=== PATIENT | male | born 1935 | race Caucasian/White ===

== ENCOUNTER 2016-05-14 16:58 | Outpatient (CLI) ==
[2013-02-13 11:19] VITALS: BMI 27.3
[2016-05-14 17:28] LABS: ALBUMIN 3.5 g/dL (3.4-5.0); ANION GAP 13.9; BUN/CREATININE RATIO 29.62; CALCIUM 9.3 mg/dL (8.2-10.2); CREATININE 0.81 mg/dL (0.60-1.10); PHOSPHORUS 2.2 mg/dL (2.3-3.7); POTASSIUM 3.9 mmol/L (3.5-5.1)
== END 2016-05-14 16:59 | disposition home or self-care (01) ==
LOC: LAB 16:58
PROVIDERS: ATTEND General Practice
DX: E11.49 Type 2 diabetes mellitus with other diabetic neurological complication (principal)
CPT/HCPCS: 36415; 80069; 83036

== ENCOUNTER 2016-05-17 09:28 | Outpatient (CLI) ==
[2013-02-13 11:19] VITALS: BMI 27.3
--- NOTE | 2016-05-17 10:41 | CT ---
EXAM: CT of the abdomen pelvis without contrast History: Weight loss, prostate cancer. Comparison: Chest CT 05/17/2016, abdominal MRI 10/28/2015 Technique: Multiplanar CT images through the abdomen and pelvis were obtained without the administr ation of contrast. Findings: Lung bases are free of consolidation. Compression deformity of L3 with kyphoplasty mater ial seen in place. Osteopenia. Small sclerotic lesions within the bilateral iliac bones have the a ppearance of bone islands. The no discrete gallstones identified by CT. No peripancreatic inflammation. There is some atrophy of the pancreas. Atherosclerotic vascular calcifications. Calcified granulomas within the spleen. Nodular surface contour of the liver. No focal liver lesions. Adrenal glands are unremarkable. Right renal cysts again noted with a proteinaceous cyst again seen in the superior pole. 2 mm nonob structing left renal calculus. No bowel obstruction. No free air. No ascites. No pathologically enlarged lymph nodes. Bladder is not distended. Surgical clips seen within the pelvis. Fat-contai anton bilateral inguinal hernias. Colonic diverticulosis. Impression: 1. No acute intra-abdominal or pelvic process. 2. Nodular surface contour of the liver can be seen with cirrhosis. 3. Nonobstructing left nephrolithiasis. 4. Right renal cysts again noted. 5. Colonic diverticulosis. 6. Fat-containing bilateral inguinal hernias.
--- NOTE | 2016-05-17 10:44 | CT ---
EXAM: CT of the chest without contrast History: Weight loss, history of prostate cancer. Comparison: Chest radiograph 03/24/2015, CT abdomen pelvis 05/17/2016 Technique: Multiplanar CT images through the thorax were obtained without the administration of IV contrast Findings: Heart size is normal. No pericardial effusion. Coronary calcifications. Great vessels are unremarkable. No pathologically enlarged thoracic lymph nodes. No consolidation. No pleural fluid and no pneumothorax. No lung masses or lung nodules. For details in the upper abdomen, please see dedicated CT abdomen pelvis done on the same day. Oste openia. Impression: No acute intrathoracic process and no suspicious lung masses or lung nodules. Coronary artery disease.
== END 2016-05-17 09:29 | disposition home or self-care (01) ==
LOC: RAD 09:28
PROVIDERS: ATTEND General Practice
DX: R63.4 Abnormal weight loss (principal); Z87.891 Personal history of nicotine dependence; Z85.46 Personal history of malignant neoplasm of prostate

== ENCOUNTER 2016-06-28 08:02 | Outpatient (CLI) ==
[2013-02-13 11:19] VITALS: BMI 27.3
[2016-06-28 08:26] LABS: BASOPHILS % (AUTO) 0.7 % (0.0-3.0); BILIRUBIN,URINE Negative (NEGATIVE); EOSINOPHILS # (AUTO) 0.2 K/ul (0.0-0.7); HEMATOCRIT 38.4 % (42.0-52.0); HEMOGLOBIN 12.7 g/dl (14.0-18.0); IMMATURE GRANULOCYTE % (AUTO) 0.2 % (0.0-5.0); KETONES,URINE Trace (NEGATIVE); LEUKOCYTE ESTERASE ,URINE Negative (NEGATIVE); LYMPHOCYTES # (AUTO) 1.1 K/uL (0.60-3.4); LYMPHOCYTES % (AUTO) 25.7 (10.0-50.0); MEAN CORPUSCULAR HEMOGLOBIN 30.6 pg (27.0-31.0); MEAN CORPUSCULAR HGB CONC 33.1 (31.8-35.4); MEAN CORPUSCULAR VOLUME 92.5 fl (80.0-94.0); MONOCYTES # (AUTO) 0.5 K/uL (0.4-2.0); MONOCYTES % (AUTO) 11.8 (0-10); NEUTROPHILS # (AUTO) 2.4 K/ul (2.0-6.9); NEUTROPHILS % (AUTO) 56.6; NITRITE,URINE Negative (NEGATIVE); PH,URINE 5.5 (5-9); PLATELET COUNT 176 10^3/uL (140-440); PROTEIN,URINE Negative (NEGATIVE); RED BLOOD COUNT 4.15 10^6/ul (4.70-6.10); URINE, BLOOD Negative (NEGATIVE); WHITE BLOOD COUNT 4.16 K/ul (4.2-10.2)
[2016-06-28 08:31] LABS: ADD URINE MICROSCOPIC NO
[2016-06-28 08:43] LABS: ALBUMIN 3.6 g/dL (3.4-5.0); ALBUMIN/GLOBULIN RATIO 1.03; ANION GAP 11.6; BILIRUBIN,TOTAL 0.88 mg/dL (0.00-1.20); BUN/CREATININE RATIO 22.5; CALCIUM 9.1 mg/dL (8.2-10.2); CHOL/HDL RATIO 3.9 (4.5-6.4); CREATININE 0.8 mg/dL (0.60-1.10); POTASSIUM 3.6 mmol/L (3.5-5.1); TOTAL PROTEIN 7.1 g/dL (5.8-8.1)
== END 2016-06-28 08:03 | disposition home or self-care (01) ==
LOC: LAB 08:02
PROVIDERS: ATTEND General Practice
DX: E53.8 Deficiency of other specified B group vitamins (principal); E11.49 Type 2 diabetes mellitus with other diabetic neurological complication; N28.89 Other specified disorders of kidney and ureter; Z79.899 Other long term (current) drug therapy
CPT/HCPCS: 36415; 80053; 80061; 81001; 83036; 85025

== ENCOUNTER 2016-07-13 07:27 | Day surgery (SDC) ==
[2013-02-13 11:19] VITALS: BMI 27.3
[2016-07-13] MEDS ORDERED: LIDOCAINE 1% 20 ML MDV ID ONE (07:55)
[2016-07-13] MEDS ORDERED: LIDOCAINE 2% 20 ML MDV ONE (07:55)
[2016-07-13] MEDS ORDERED: VERSED ONE (09:35)
[2016-07-13] MEDS ORDERED: DIPRIVAN 20 ML VIAL IVP ONE (09:35)
[2016-07-13 10:52] VITALS: BP 137/69; TEMP 97.5
--- NOTE | 2016-07-14 10:08 | OP ---
INDICATIONS FOR PROCEDURE: 80 year old gentleman past history of adenomatous polyps on colonoscopy three years ago presents for colonoscopy. He has also had a change in his bowel habits with increased constipation which is responding to Citrucel he states. MEDICATIONS: SEE ANESTHESIA NOTES. PROCEDURE: COLONOSCOPY. REPORT: The risks, benefits, alternatives and limitations were discussed in detail with the patient. Informed consent was obtained. After adequate sedation was achieved, a digital rectal exam revealed good tone, no masses. The colonoscope was introduced into the rectum and advanced under direct visual guidance. He had a little bit of a torturous left colon. The scope was advanced to the cecum which was identified by the appendiceal orifice and IC valve. I then slowly withdrew the scope in the circumferential manner and examined the mucosa quite carefully. I looked on the proximal and distal side of the folds and flexures as best as possible. I was able to retroflex the scope in the right colon and the left colon to increase visualization. There was a moderate amount of large and small mouth diverticula scattered throughout the sigmoid colon and descending colon. No other abnormalities were noted including on retroflex view of the anal canal. The prep was good. Withdraw time is 6 minutes and 57 seconds. The patient tolerated the procedure well with stable vital signs and pulse oximetry throughout. IMPRESSION: 1. Diverticulosis RECOMMENDATIONS: 1. High fiber diet. I suggested that he continue with daily fiber supplements such as Citrucel 2. Office visit as needed 3. Recommend future surveillance colonoscopy examinations on an as needed only basis CC: Dr[facility] Reardon. [facility]
== END 2016-07-13 11:00 | disposition home or self-care (01) ==
LOC: SURG 07:27
PROVIDERS: ATTEND Internal Medicine Gastroenterology
DX: Z86.010 Personal history of colon polyps (principal); K57.30 Diverticulosis of large intestine without perforation or abscess without bleeding; K59.00 Constipation, unspecified; E11.9 Type 2 diabetes mellitus without complications
CPT/HCPCS: 82962

== ENCOUNTER 2017-02-03 13:24 | Outpatient (CLI) ==
[2013-02-13 11:19] VITALS: BMI 27.3
[2017-02-03 13:55] LABS: BASOPHILS % (AUTO) 0.6 % (0.0-3.0); EOSINOPHILS # (AUTO) 0.2 K/ul (0.0-0.7); EOSINOPHILS % (AUTO) 4.3 % (0.0-7.0); HEMATOCRIT 36.4 % (42.0-52.0); HEMOGLOBIN 12.1 g/dl (14.0-18.0); IMMATURE GRANULOCYTE % (AUTO) 0.2 % (0.0-5.0); LYMPHOCYTES # (AUTO) 1.2 K/uL (0.60-3.4); MEAN CORPUSCULAR HGB CONC 33.2 (31.8-35.4); MEAN CORPUSCULAR VOLUME 93.3 fl (80.0-94.0); MONOCYTES # (AUTO) 0.4 K/uL (0.4-2.0); MONOCYTES % (AUTO) 8.3 (0-10); NEUTROPHILS # (AUTO) 3.2 K/ul (2.0-6.9); NEUTROPHILS % (AUTO) 63.6; PLATELET COUNT 173 10^3/uL (140-440); WHITE BLOOD COUNT 5.09 K/ul (4.2-10.2)
[2017-02-03 14:10] LABS: ALBUMIN 3.4 g/dL (3.4-5.0); ANION GAP 9.8; BILIRUBIN,TOTAL 1.06 mg/dL (0.00-1.20); BUN/CREATININE RATIO 28.76; CALCIUM 9.6 mg/dL (8.2-10.2); CHOL/HDL RATIO 3.9 (4.5-6.4); CREATININE 0.73 mg/dL (0.60-1.10); POTASSIUM 3.8 mmol/L (3.5-5.1); TOTAL PROTEIN 6.8 g/dL (5.8-8.1)
[2017-02-03 14:12] LABS: BILIRUBIN,URINE Negative (NEGATIVE); KETONES,URINE Negative (NEGATIVE); LEUKOCYTE ESTERASE ,URINE Negative (NEGATIVE); NITRITE,URINE Negative (NEGATIVE); PROTEIN,URINE Negative (NEGATIVE); URINE, BLOOD Negative (NEGATIVE)
[2017-02-03 14:18] LABS: ADD URINE MICROSCOPIC NO
== END 2017-02-03 13:25 | disposition home or self-care (01) ==
LOC: LAB 13:24
PROVIDERS: ATTEND General Practice
DX: E11.49 Type 2 diabetes mellitus with other diabetic neurological complication (principal); E53.8 Deficiency of other specified B group vitamins; N28.89 Other specified disorders of kidney and ureter; Z79.899 Other long term (current) drug therapy
CPT/HCPCS: 36415; 80053; 80061; 81001; 83036; 85025

== ENCOUNTER 2017-06-09 13:20 | Outpatient (CLI) ==
[2013-02-13 11:19] VITALS: BMI 27.3
== END 2017-06-09 13:21 | disposition home or self-care (01) ==
LOC: LAB 13:20
PROVIDERS: ATTEND General Practice
DX: E11.49 Type 2 diabetes mellitus with other diabetic neurological complication (principal); Z79.899 Other long term (current) drug therapy; Z12.5 Encounter for screening for malignant neoplasm of prostate
CPT/HCPCS: 36415; 80053; 80061; 81001; 85025; 87086

== ENCOUNTER 2017-08-08 11:03 | Outpatient (CLI) ==
[2013-02-13 11:19] VITALS: BMI 27.3
--- NOTE | 2017-08-08 12:36 | CT ---
EXAM: CT chest without contrast HISTORY: Productive cough COMPARISON: CT chest 05/17/2016 and multiple prior chest x-rays TECHNIQUE: Serial axial images of the chest were obtained from the lung apices to the upper abdomen without contrast. These were viewed in multiple planes. FINDINGS: The thyroid is normal. The visualized vessels are unremarkable without aneurysm or stenos is. Pulmonary arteries are unremarkable. The heart is normal in size without pericardial effusion. There are nonpathologically enlarged mediastinal lymph nodes. There is no pneumothorax or pleural effusion. There is mild central lobular ground-glass nodularity and airway thickening, most pronounced in the right lower lobe and the right upper lobe. There is no acute consolidation. The central airways are patent. Limited views of the upper abdomen demonstrate a mildly nodular appearance of the liver. There are l ow attenuation lesions in the right kidney. The osseous structures are demonstrate degenerative dise ase. IMPRESSION: 1. Mild central lobular ground-glass nodularity and small airway thickening in the right upper lobe and the right lower lobe suggestive of small airways infection. There is no acute consolidation. 2. Nonpathologically enlarged mediastinal lymph nodes are likely reactive. 3. The liver is mildly nodular in appearance with low attenuation lesions of the kidneys. These kid tasha lesions may represent cysts seen on MRI 10/28/2015.
== END 2017-08-08 11:04 | disposition home or self-care (01) ==
LOC: RAD 11:03
PROVIDERS: ATTEND General Practice
DX: R06.89 Other abnormalities of breathing (principal); R09.89 Other specified symptoms and signs involving the circulatory and respiratory systems; R06.2 Wheezing; R06.02 Shortness of breath; R05 Cough
CPT/HCPCS: 36415; 80053; 83880; 85007; 85025

== ENCOUNTER 2017-09-09 09:44 | Outpatient (CLI) ==
[2013-02-13 11:19] VITALS: BMI 27.3
== END 2017-09-09 09:45 | disposition home or self-care (01) ==
LOC: FCC-LAB 09:44
PROVIDERS: ATTEND General Practice
DX: E11.49 Type 2 diabetes mellitus with other diabetic neurological complication (principal); E53.8 Deficiency of other specified B group vitamins; C61 Malignant neoplasm of prostate; N39.3 Stress incontinence (female) (male); Z79.899 Other long term (current) drug therapy
CPT/HCPCS: 36415; 80053; 80061; 81001; 83036; 85025

== ENCOUNTER 2017-11-15 10:54 | Outpatient (CLI) ==
[2013-02-13 11:19] VITALS: BMI 27.3
== END 2017-11-15 10:55 | disposition home or self-care (01) ==
LOC: FCC-LAB 10:54
PROVIDERS: ATTEND General Practice
DX: E11.49 Type 2 diabetes mellitus with other diabetic neurological complication (principal); N28.89 Other specified disorders of kidney and ureter; E53.8 Deficiency of other specified B group vitamins; C61 Malignant neoplasm of prostate; G57.93 Unspecified mononeuropathy of bilateral lower limbs; H40.9 Unspecified glaucoma; Z79.899 Other long term (current) drug therapy
CPT/HCPCS: 36415; 83036

== ENCOUNTER 2018-03-13 09:34 | Outpatient (CLI) ==
[2013-02-13 11:19] VITALS: BMI 27.3
== END 2018-03-13 09:35 | disposition home or self-care (01) ==
LOC: RHC-LAB 09:34
PROVIDERS: ATTEND General Practice
DX: E11.49 Type 2 diabetes mellitus with other diabetic neurological complication (principal); E78.5 Hyperlipidemia, unspecified; Z79.899 Other long term (current) drug therapy
CPT/HCPCS: 36415; 80053; 80061; 81001; 83036; 85025

== ENCOUNTER 2018-07-10 08:01 | Outpatient (CLI) | payer OTHER ==
[2013-02-13 11:19] VITALS: BMI 27.3
== END 2018-07-10 08:02 | disposition home or self-care (01) ==
LOC: RHC-LAB 08:01
PROVIDERS: ATTEND General Practice
DX: E11.49 Type 2 diabetes mellitus with other diabetic neurological complication (principal); Z79.899 Other long term (current) drug therapy
CPT/HCPCS: 36415; 80053; 80061; 81001; 83036; 85025; 87086

== ENCOUNTER 2018-10-03 11:21 | Outpatient (CLI) | payer OTHER ==
[2013-02-13 11:19] VITALS: BMI 27.3
== END 2018-10-03 11:22 | disposition home or self-care (01) ==
LOC: RHC-LAB 11:21
PROVIDERS: ATTEND General Practice
DX: E53.8 Deficiency of other specified B group vitamins (principal); E11.49 Type 2 diabetes mellitus with other diabetic neurological complication; N39.3 Stress incontinence (female) (male)
CPT/HCPCS: 36415; 80053; 80061; 81001; 83036; 85025

== ENCOUNTER 2019-01-09 08:06 | Outpatient (CLI) ==
[2013-02-13 11:19] VITALS: BMI 27.3
== END 2019-01-09 08:07 | disposition home or self-care (01) ==
LOC: LAB 08:06
PROVIDERS: ATTEND General Practice
DX: E11.49 Type 2 diabetes mellitus with other diabetic neurological complication (principal); E78.5 Hyperlipidemia, unspecified; L98.9 Disorder of the skin and subcutaneous tissue, unspecified; R19.7 Diarrhea, unspecified; Z79.899 Other long term (current) drug therapy
CPT/HCPCS: 36415; 80053; 80061; 81001; 83036; 85025

== ENCOUNTER 2021-12-28 12:17 | Inpatient (IN) ==
[2021-12-28] MEDS ORDERED: ATROPINE SULFATE PFS IVP PRN (14:20)
[2021-12-28] MEDS ORDERED: NITROSTAT SL PRN (14:20)
[2021-12-28] MEDS ORDERED: VANCOMYCIN 1 GRAM/200 ML PREMIX 1 GM/200 ML BAG IV ONE (14:34)
[2021-12-28] MEDS ORDERED: DECADRON IM ONE (14:34)
[2021-12-28 14:54] LABS: HEMATOCRIT 36.4 % (42.0-52.0); MEAN CORPUSCULAR HEMOGLOBIN 29.8 pg (27.0-31.0); MEAN CORPUSCULAR VOLUME 90.3 fl (80.0-94.0); PLATELET COUNT 193 10^3/uL (140-440); RDW COEFFICIENT OF VARIATION 13.2 % (11.6-14.8); RED BLOOD COUNT 4.03 10^6/ul (4.70-6.10)
[2021-12-28 14:59] LABS: BILIRUBIN,URINE Negative (NEGATIVE); CLARITY,URINE Clear (CLEAR); COLOR,URINE Yellow (YELLOW); GLUCOSE, URINE (UA) 2+ (NEGATIVE); KETONES,URINE Negative (NEGATIVE); LEUKOCYTE ESTERASE ,URINE Negative (NEGATIVE); NITRITE,URINE Negative (NEGATIVE); PH,URINE 5.5 (5-9); PROTEIN,URINE 1+ (NEGATIVE); URINE, BLOOD Trace-lysed (NEGATIVE); UROBILINOGEN,URINE 0.2 (0.2)
[2021-12-28 15:02] LABS: SQUAMOUS EPITHELIAL CELL,UR NOT PRESENT (0-5)
[2021-12-28 15:03] LABS: AMORPHOUS SEDIMENT,UR 1+ (NOT PRESENT); RENAL EPITHELIAL CELLS,URINE 0-2 (NOT PRESENT); URINE WBC, MICROSCOPIC 0-2 (0-2)
[2021-12-28 15:04] LABS: BACTERIA,URINE 1+ (NOT PRESENT); HYALINE CASTS, URINE 0-2 (NOT PRESENT)
[2021-12-28 15:07] LABS: ALANINE AMINOTRANSFERASE 24.3 U/L (0-50); ALBUMIN 3.28 g/dL (3.5-5.0); ALKALINE PHOSPHATASE 76.1 U/L (56-119); ASPARTATE AMINO TRANSFERASE 38.6 U/L (17-59); BILIRUBIN,TOTAL 0.65 mg/dL (0.2-1.3); BLOOD UREA NITROGEN 41.4 mg/dL (9-20); CALCIUM 8.85 mg/dL (8.4-10.2); CARBON DIOXIDE 21.4 mmol/L (22-30.0); CHLORIDE 102.6 mmol/L (98-107); CREATININE 1.12 mg/dL (0.60-1.10); GLUCOSE 299.6 mg/dL (74-106); POTASSIUM 3.66 mmol/L (3.5-5.1); SODIUM 133.9 mmol/L (134.5-145); TOTAL PROTEIN 6.88 g/dL (6.3-8.2)
[2021-12-28] MEDS ORDERED: FLONASE NAS PRN (15:12)
[2021-12-28] MEDS: DOXY-100 100 MG in SODIUM CHLORIDE 100ML 100 ML IV SCH ×2 (15:15→20:17)
[2021-12-28 15:16] LABS: ANISOCYTOSIS NOT PRESENT (NOT PRESENT)
[2021-12-28 15:17] LABS: WHITE BLOOD COUNT 22.25 K/ul (4.2-10.2)
[2021-12-28 15:48] VITALS: BMI 21.8
--- NOTE | 2021-12-28 16:07 | DI ---
EXAM: Frontal view of the chest. HISTORY: Exertional shortness of breath. COMPARISON: Chest radiograph 03/24/2015. CT chest 04/20/2019. FINDINGS: Mild calcific atherosclerosis of the aorta. Normal heart size. No acute consolidation. No visible effusion or pneumothorax. No acute osseous abnormality. IMPRESSION: 1. No acute process demonstrated. 2. Mild calcific atherosclerosis.
--- NOTE | 2021-12-28 16:39 | RS.OTINEVL ---
Subjective - Patient information Date of Evaluation: 12/28/21 Date of Arrival on Unit: 12/28/21 Admitted From:: Direct Admit Diagnosis: Abscessed Perianal, scrotum swelling PRECAUTIONS: Difficulty standing and functional mobility due to pain. 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 Pt drives. Current Level of Function: Independent Current Equipment Used at Home: NONE Pain Assessment - Pain Pain Score: 5 Pain Location Body Site: Perianal area Pain Aggravating Factors: ADL's, Changing Position, Standing, Sitting, Walking, Stair Climbing Pain Alleviating Factors: Medication, Lying Supine Interventions - Objective Patient Orientation: Person, Place, Situation Current Interventions: IV's Observation: Pt holding a pillow over his middle section. Pt able to sit EOB independently. Pt stood slowly and bent over due to increased pain. Pt able to walk backwards to EOB. Pt independent with getting back in the bed. Interventions - ROM Right Upper Extremity AROM: WFL's Left Upper Extremity AROM: WFL's - Strength Right Upper Extremity Strength: Normal Left Upper Extremity Strength: Normal - Sensation Right Upper Extremity Sensation: Intact/Normal Left Upper Extremity Sensation: Intact/Normal Balance - Sitting Balance Static Sitting Balance: Fair Dynamic Sitting Balance: Fair - Standing Balance Static Standing Balance: Fair Dynamic Standing Balance: Fair ADL Skills - Self Feeding Self Feeding: Independent - Grooming Grooming: Independent - Bathing Bathing UE: Set Up Only Bathing LE: Supervision Bathing Set-up: Shower - Dressing Dressing UE: Independent Dressing LE: Independent - Toilet Management Toilet Hygiene: Independent Toilet Clothing Management: Independent - Comments Comments:: Pt refused therapy at this time. Functional Mobility - Bed Mobility Rolling R/L: Independent Scooting: Independent Supine to Sit: Independent Sit to Supine: Independent - Transfers Sit to Stand: CGA Stand to Sit: Independent Stand Pivot Transfers: CGA - Ambulation Weight Bearing Status: FWB Assistive Device Used: No Assistive Device TRINA INDEX SCORE: . Additional Treatment Performed - Time with patient Length of Evaluation: 20 Total treatment time: 20 Activities Do you enjoy playing games?: Yes Would you be interested in leaving your room for activities?: Yes Would you enjoy group activities?: Yes Do you have difficulty with your vision?: No What types of things do you enjoy doing? Any Hobbies?: golf Patient Interests:: Watching Television Patient Education Patient Education: Education of diagnosis Teaching Recipient: Patient Teaching Methods: Teach Back Method Used, Discussion Assessment Problem List:: Decreased safety/Risk of falls, Weakness Rehab Potential: Good Further Therapy Indicated?: No Evaluation Complexity: HISTORY: Low, EXAM OF BODY SYSTEMS: Low, CLINICAL DECISION MAKING: Low Patient's Goal(s): Pt to get to feeling better and get home where he can go golfing. Short Term Goals - Goals GOAL 1: No goals at this time. Braddisher Goals GOAL 1: No goals at this time. Plan Plan of Care: Therapeutic EX, Therapeutic Activity, Self-Care/Home Management Frequency of Treatment: Refused OT at this time. Duration of Treatment: N/A Anticipated Discharge Destination: Home Treatment Diagnosis (ICD 10 Codes): weakness M62.81 Has the Physician been added for Co-signature?: Yes
[2021-12-28] MEDS: GLUCOPHAGE PO SCH (17:38)
[2021-12-28] MEDS: NEURONTIN PO SCH (20:17)
[2021-12-28] MEDS: PRAVACHOL PO SCH (20:17)
[2021-12-28] MEDS: XALATAN EACHEYE SCH (20:58)
[2021-12-28] MEDS: HUMULIN R SUBCUT PRN (21:54)
[2021-12-28] MEDS: MAXIPIME 2 GM in SODIUM CHLORIDE 100ML 100 ML IV SCH (22:29)
[2021-12-29 05:04] LABS: HEMATOCRIT 33.8 % (42.0-52.0); MEAN CORPUSCULAR HEMOGLOBIN 29.8 pg (27.0-31.0); MEAN CORPUSCULAR HGB CONC 32.5 (31.8-35.4); MEAN CORPUSCULAR VOLUME 91.6 fl (80.0-94.0); PLATELET COUNT 185 10^3/uL (140-440); RDW COEFFICIENT OF VARIATION 13.5 % (11.6-14.8); RED BLOOD COUNT 3.69 10^6/ul (4.70-6.10)
[2021-12-29 05:06] LABS: ANISOCYTOSIS NOT PRESENT (NOT PRESENT)
[2021-12-29 05:15] LABS: ALANINE AMINOTRANSFERASE 21.5 U/L (0-50); ALBUMIN 2.75 g/dL (3.5-5.0); ALKALINE PHOSPHATASE 70.2 U/L (56-119); ASPARTATE AMINO TRANSFERASE 31.4 U/L (17-59); BILIRUBIN,TOTAL 0.53 mg/dL (0.2-1.3); BLOOD UREA NITROGEN 39.6 mg/dL (9-20); CALCIUM 8.4 mg/dL (8.4-10.2); CHLORIDE 103.6 mmol/L (98-107); CREATININE 1.03 mg/dL (0.60-1.10); POTASSIUM 3.75 mmol/L (3.5-5.1); TOTAL PROTEIN 5.95 g/dL (6.3-8.2)
[2021-12-29] MEDS: HUMULIN R SUBCUT PRN ×4 (05:40→20:33)
[2021-12-29] MEDS ORDERED: SODIUM CHLORIDE 1,000 ML IV SCH (08:30)
[2021-12-29] MEDS: MAXIPIME 2 GM in SODIUM CHLORIDE 100ML 100 ML IV SCH ×2 (08:53→20:30)
[2021-12-29] MEDS: TORADOL IVP PRN ×2 (08:54→20:31)
[2021-12-29] MEDS: JANUVIA PO SCH (08:54)
[2021-12-29] MEDS: GLUCOPHAGE PO SCH ×2 (08:54→17:14)
--- NOTE | 2021-12-29 08:54 | PCM.PROG ---
Attending Provider: ATTENDING PROVIDER: Dr. VIPUL AJ This patient is seen with Orly Cordova, Nurse Practitioner. DATE OF SERVICE: 12/29/21 SUBJECTIVE: This 86 year old /WHITE M was hospitalized 12/28/21. No fever. Reports improvement in pain. Blood cultures and urine cultures has no preliminary results. REVIEW OF SYSTEMS: CONSTITUTIONAL: No night sweats. No fatigue, malaise, lethargy. No fever or chills. HEENT: Eyes: No visual changes. No eye pain. No eye discharge. ENT: No runny nose. No epistaxis. No sinus pain. No odynophagia. No congestion. RESPIRATORY: No cough, no congestion. No hemoptysis. No shortness of breath. CARDIOVASCULAR: No angina symptoms. No CHF symptoms. No atypical chest pain for CAD. No palpitations. No orthopnea.. GASTROINTESTINAL: No abdominal pain. No nausea or vomiting. No diarrhea or constipation. No hematemesis. No hematochezia. GENITOURINARY: No urgency. No frequency. No dysuria. No hematuria. No obstructive symptoms. No discharge. No pain. No significant abnormal bleeding. Scrotal swelling, redness and swelling perianal area. MUSCULOSKELETAL: No musculoskeletal pain; no joint swelling. NEUROLOGICAL: Awake, alert, oriented to time, place and person. No headache. No neck pain. No syncope. No seizures. No dizziness. PSYCHIATRIC: Not anxious. No depression. No suicidal thoughts. No homicidal thoughts. SKIN: No rash. No lesions. No wounds. ENDOCRINE: No unexplained weight loss. No weight gain. HEMATOLOGIC/LYMPHATIC: No anemia. No purpura. No petechiae. No prolonged or excessive bleeding. No palpable lymph nodes. PHYSICAL EXAMINATION: GENERAL: The patient is awake, alert and oriented,sitting in bed in no distress. VITAL SIGNS: Temperature 96.8 F, Pulse 67, Respiratory Rate 18, BP 113/63, Pulse Ox 97% HEENT: Head normocephalic, atraumatic. Eyes: Extraocular muscles are intact. Pupils are equal, round and reactive to light and accommodation. Ears: No lesions. Nose appeared normal. Throat: No exudate or erythema. NECK: Supple. No JVD, no carotid bruit. No lymphadenopathy or thyromegaly. LUNGS: Diminished breath sounds. Clear to auscultation. Percussion note normal. Chest symmetrical. HEART: S1, S2, no S3. No murmurs. No cyanosis or clubbing. No ascites. Pulse s: Dorsalis pedis and posterior tibial pulses +1 to +2 both sides. ABDOMEN: Soft. Non-tender. Bowel sounds active. No CVA tenderness. No mass felt. EXTREMITIES: No edema. Full range of motion of all extremities, equal. Redness and swelling of gluteal folds. No definite area of induration. Redness extending to scrotum. No drainage. Tenderness. NEUROLOGIC: No focal deficit. Cranial nerves II through XII are grossly intact. No headache. No double vision. SKIN: Not dry. Intact. Turgor-normal. LYMPHATIC: No palpable lymph nodes/no lymphedema. MUSCULOSKELETAL: Normal joints with no swelling. Muscle tone is normal. LAB REVIEW: 12/29/21 04:52 12/29/21 04:52 12/29/21 04:52: Sodium 136.0, Potassium 3.75, Chloride 103.6, Carbon Dioxide 26.0, Anion Gap 10.15, BUN 39.6 H, Creatinine 1.03, Estimated GFR (MDRD) 68.00, BUN/Creatinine Ratio 38.44, Glucose 277.0 H, Calcium 8.40, Total Bilirubin 0.53, AST 31.4, ALT 21.5, Alkaline Phosphatase 70.2, Total Protein 5.95 L, Albumin 2.75 L, Globulin 3.20, Albumin/Globulin Ratio 0.85 12/29/21 04:52: WBC 22.20 H, RBC 3.69 L, Hgb 11.0 L, Hct 33.8 L, MCV 91.6, MCH 29.8, MCHC 32.5, RDW Coeff of Pat 13.5, Plt Count 185, Neutrophils % (Manual) 89.0 H, Band Neutrophils % 2.0, Lymphocytes % (Manual) 5.0 L, Monocytes % (Manual) 4.0, Anisocytosis Not present 12/28/21 14:43: Sodium 133.9 L, Potassium 3.66, Chloride 102.6, Carbon Dioxide 21.4 L, Anion Gap 13.56, BUN 41.4 H, Creatinine 1.12 H, Estimated GFR (MDRD) 62.00, BUN/Creatinine Ratio 36.96, Glucose 299.6 H, Calcium 8.85, Total Bilirubin 0.65, AST 38.6, ALT 24.3, Alkaline Phosphatase 76.1, Total Protein 6 .88, Albumin 3.28 L, Globulin 3.60, Albumin/Globulin Ratio 0.91 12/28/21 14:43: WBC 22.25 H, RBC 4.03 L, Hgb 12.0 L, Hct 36.4 L, MCV 90.3, MCH 29.8, MCHC 33.0, RDW Coeff of Pat 13.2, Plt Count 193, Neutrophils % (Manual) 90.0 H, Band Neutrophils % 5.0, Lymphocytes % (Manual) 1.0 L, Monocytes % (Manual) 4.0, Anisocytosis Not present 12/28/21 14:31: Urine Color Yellow, Urine Clarity Clear, Urine pH 5.5, Ur Specific [place] 1.020, Urine Protein 1+ H, Urine Glucose (UA) 2+ H, Urine Ketones Negative, Urine Blood Trace-lysed, Urine Nitrite Negative, Urine Bilirubin Negative, Urine Urobilinogen 0.2, Ur Leukocyte Esterase Negative, Urine Microscopic RBC 2-5, Urine Microscopic WBC 0-2, Ur Squamous Epith Cells Not present, Ur Renal Epithelial Cell 0-2, Amorphous Sediment 1+, Urine Bacteria 1+, Hyaline Casts 0-2 12/28/21 12:24: SARS CoV-2 RNA Rapid KARINA Negative ASSESSMENT: Please see below. 1. Perianal abscess with surrounding cellulitis 2. Possible UTI 3. Diabetes Mellitus type II PLAN: 1. Continue IV antibiotics 2. Can use cool compress 3. Echo 4. Normal saline at 75cc times one bag Plan and coordination of the patient's care discussed in the presence of Branch Rental Manager and nurse. SCRIBED BY: Radha DICKEY scribed while in presence of service performed by Dr. Aj/Orly Cordova APRN on 12/29/21 ([id number])
[2021-12-29] MEDS ORDERED: COSOPT EACHEYE SCH (09:00)
--- NOTE | 2021-12-29 09:59 | HP ---
DATE OF SERVICE: 12/28/21 REASON FOR HOSPITALIZATION/HISTORY OF PRESENT ILLNESS: Started with ingrown hair in "crack of butt". Fever last night. Unable to sit. Scrotum swollen, no drainage. On Keflex. PAST MEDICAL HISTORY: Diabetes Mellitus type II Dyslipidemia Neuropathy Hypertension Urinary incontinence Cancer of prostate Noncompliant with medications, diet and followup History of hematuria Radiation cystitis Dr. Bañuelos Diabetes Mellitus type II Dyslipidemia Neuropathy Hypertension Left nephrolithiasis Cancer of prostate with radiation 25 years ago Back surgery B12 deficiency PAST SURGICAL HISTORY: Prostate cancer Back surgery REVIEW OF SYSTEMS: CONSTITUTIONAL: Fever, Fatigue. HEENT: No sinus drainage, no sore throat. RESPIRATORY: No cough, no congestion. CARDIOVASCULAR: No atypical chest pain for coronary artery disease. No angina, CHF symptoms, palpitations or shortness of breath. GASTROINTESTINAL: No melena or abdominal pain. No GERD. GENITOURINARY: No hematuria, no prostatism, no polyuria. Perianal swelling and tenderness. DYER ASSISTANT: No blackout, no dizziness, no headache, no double vision. MUSCULOSKELETAL: No osteoarthritis pain, no joint swelling. ENDOCRINE: No weight loss, no weight gain. SKIN: Not dry, no rash. PSYCHIATRIC: Not anxious, no depression, no suicidal thoughts, no homicidal thoughts. SOCIAL HISTORY: Marital Status:Single. Alcohol Usage: No. Tobacco Usage: No. FAMILY HISTORY: Father Mother Brother 3 Sister 2 alive and one . MEDICATIONS: Janumet XR 100/1000 Neurontin 100mg 1/2 QHS Flonase 2 sprays daily Pravastatin 20mg HS Keflex 500mg times 10 days Bactroban ALLERGIES: Jardiance PHYSICAL EXAMINATION: V/S: Pulse 87, blood pressure 134/64, Temperature 98, Oxygen saturation 95%. BMI 21.8, height 6'4", Weight 179.2. GENERAL APPEARANCE: Oriented times three. HEENT: Normal. NECK: No JVP, no bruits. RESPIRATORY: Lungs are clear. CARDIOVASCULAR: S1, S2, no S3, no murmur. No cyanosis, clubbing. No ascites. GI/ABDOMEN: No tenderness. Bowel sounds are active. EXTREMITIES: edema, pulses +1, equal. Perianal area swollen, red, tender. Scrotum red and swollen. DYER ASSISTANT: Deep tendon reflexes, sensory, motor and gait all normal. RECTAL: Prostate 5/2 (<0.1) Colonoscopy 2018 Dr. Davidson ASSESSMENT: 1. Cellulitis of perianal area and scrotal area. 2. Scrotal swelling 3. Fever 4. Noncompliant with medications, diet and followup 5. History of hematuria 6. 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 Bañuelos 7. Diabetes Mellitus type II 8. Dyslipidemia 9. Neuropathy 10.Hypertension 11.Left nephrolithiasis 12.Cancer of prostate with radiation 25 years ago 13.Back surgery 14.B12 deficiency PLAN: 1. Tested in drive thru 2. Routine telemetry orders 3. No cardiac markers 4. CBC and CMP now and daily 5. Blood cultures times two 6. Cefepime IV- Pharmacy to dose 7. Doxycycline 100mg IV Q 12 hours 8. Regular diet 9. Continue home medications 10.Toradol 30mg IV Q 8 hours PRN 11.Sitz bath TID PRN 12.0.5cc Decadron IM 13.Vancomycin 1gram IV times one now. TIME SPENT: More than 70 minutes. MTDD
[2021-12-29] MEDS: DOXY-100 100 MG in SODIUM CHLORIDE 100ML 100 ML IV SCH ×2 (10:34→21:03)
[2021-12-29] MEDS: TYLENOL PO PRN (13:24)
--- NOTE | 2021-12-29 13:34 | PN ---
DATE OF SERVICE: 12/28/21 SUBJECTIVE: The patient was seen and examined in the hospital after he was hospitalized through the office. Cellulitis in the scrotum and the left side of perianal area. The patient was seen and examined three days ago and given Keflex. The patient was advised SITZ bath and warm socks but not doing in fact he had increased his activity by play golf and sweating. According to him things looked better for a day or so and then involving his scrotum and other area. He was unable to sit down. Fever and chills yesterday. REVIEW OF SYSTEMS: CONSTITUTIONAL: No night sweats. No fatigue, malaise, lethargy. No fever or chills. HEENT: Eyes: No visual changes. No eye pain. No eye discharge. ENT: No runny nose. No epistaxis. No sinus pain. No sore throat. No odynophagia. No congestion. RESPIRATORY: No cough, no congestion. No hemoptysis. No shortness of breath. CARDIOVASCULAR: No angina symptoms. No CHF symptoms. No atypical chest pain for CAD. No palpitations. No PND. No orthopnea. GASTROINTESTINAL: No abdominal pain. No nausea or vomiting. No diarrhea or constipation. No hematemesis. No hematochezia. GENITOURINARY: No urgency. No frequency. No dysuria. No hematuria. No obstructive symptoms. No discharge. No pain. No significant abnormal bleeding. MUSCULOSKELETAL: No musculoskeletal pain; no joint swelling. NEUROLOGICAL: No headache. No neck pain. No syncope. No seizures. No dizziness. PSYCHIATRIC: Not anxious. No depression. No suicidal thoughts. No homicidal thoughts. SKIN: No rash. No lesions. No wounds. ENDOCRINE: No unexplained weight loss. No weight gain. HEMATOLOGIC/LYMPHATIC: No anemia. No purpura. No petechiae. No prolonged or excessive bleeding. No palpable lymph nodes. PHYSICAL EXAMINATION: HEENT: Head normocephalic, atraumatic. Eyes: Extraocular muscles are intact. Pupils are equal, round and reactive to light and accommodation. Ears: No lesions. Nose appeared normal. Throat: No exudate or erythema. NECK: Supple. No JVD, no carotid bruit. No lymphadenopathy or thyromegaly. LUNGS: Clear to auscultation. Percussion note normal. Chest symmetrical. HEART: S1, S2, no S3. No murmurs. No cyanosis or clubbing. No ascites. Pulses: Dorsalis pedis and posterior tibial pulses +1 to +2 bilaterally. ABDOMEN: Soft. Nontender. Bowel sounds active. No CVA tenderness. No mass felt. EXTREMITIES: No edema. Full range of motion of all extremities, equal. Cellulitis involving scrotum and left side of perianal area with no discharge. Tender to touch. NEUROLOGIC: No focal deficit. Cranial nerves II through XII are grossly intact. No headache. No double vision. SKIN: Not dry. Intact. Turgor - normal. LYMPHATIC: No palpable lymph nodes/no lymphedema. MUSCULOSKELETAL: Normal joints with no swelling. Muscle tone is normal. Son and the daughter were present in the room. ASSESSMENT: 1. Cellulitis of perianal area on the left and scrotal. PLAN: 1. IV antibiotics Cefepime and Vancomycin one dose 2. Doxycycline 100mg BID 3. The patient will have blood cultures 4. Discussed with patient about DNR. The patient wants DNR status. TIME SPENT: More than 30 minutes. Plan and coordination of the patient's care discussed in the presence of nurse. MG
[2021-12-29] MEDS: PROTONIX PO SCH (17:14)
[2021-12-29] MEDS: XALATAN EACHEYE SCH (17:16)
[2021-12-29] MEDS: COSOPT EACHEYE SCH (18:09)
[2021-12-29] MEDS ORDERED: GLYCERIN SUPPOSITORY RC PRN (18:26)
[2021-12-29] MEDS: NEURONTIN PO SCH (20:30)
[2021-12-29] MEDS: PRAVACHOL PO SCH (20:30)
[2021-12-30] MEDS: TYLENOL PO PRN (01:49)
[2021-12-30 05:08] LABS: HEMATOCRIT 31.8 % (42.0-52.0); HEMOGLOBIN 10.6 g/dl (14.0-18.0); MEAN CORPUSCULAR HEMOGLOBIN 30.1 pg (27.0-31.0); MEAN CORPUSCULAR HGB CONC 33.3 (31.8-35.4); MEAN CORPUSCULAR VOLUME 90.3 fl (80.0-94.0); PLATELET COUNT 179 10^3/uL (140-440); RDW COEFFICIENT OF VARIATION 13.7 % (11.6-14.8); RED BLOOD COUNT 3.52 10^6/ul (4.70-6.10); WHITE BLOOD COUNT 31.99 K/ul (4.2-10.2)
[2021-12-30 05:10] LABS: ANISOCYTOSIS NOT PRESENT (NOT PRESENT)
[2021-12-30 05:17] VITALS: BP 119/64; TEMP 98.2
[2021-12-30 05:21] LABS: ALANINE AMINOTRANSFERASE 28.7 U/L (0-50); ALBUMIN 2.44 g/dL (3.5-5.0); ALKALINE PHOSPHATASE 81.7 U/L (56-119); ASPARTATE AMINO TRANSFERASE 47.5 U/L (17-59); BILIRUBIN,TOTAL 0.67 mg/dL (0.2-1.3); BLOOD UREA NITROGEN 36.1 mg/dL (9-20); CALCIUM 8.44 mg/dL (8.4-10.2); CARBON DIOXIDE 23.1 mmol/L (22-30.0); CHLORIDE 105.9 mmol/L (98-107); CREATININE 1.02 mg/dL (0.60-1.10); GLUCOSE 231.5 mg/dL (74-106); POTASSIUM 3.71 mmol/L (3.5-5.1); TOTAL PROTEIN 5.59 g/dL (6.3-8.2)
[2021-12-30] MEDS: PROTONIX PO SCH (05:30)
[2021-12-30] MEDS: HUMULIN R SUBCUT PRN ×2 (05:51→12:01)
[2021-12-30] MEDS: JANUVIA PO SCH (09:36)
[2021-12-30] MEDS: GLUCOPHAGE PO SCH (09:37)
[2021-12-30] MEDS: COSOPT EACHEYE SCH (09:39)
[2021-12-30] MEDS: MAXIPIME 2 GM in SODIUM CHLORIDE 100ML 100 ML IV SCH (09:40)
[2021-12-30] MEDS: DOXY-100 100 MG in SODIUM CHLORIDE 100ML 100 ML IV SCH (10:40)
[2021-12-30] MEDS ORDERED: MILK OF MAGNESIA PO PRN (11:14)
--- NOTE | 2021-12-30 12:29 | DS ---
DATE OF SERVICE: 12/30/21 FINAL DIAGNOSIS: 1. Abscess cellulitis of perianal area 2. Diabetes Mellitus type II 3. C of the prostate with radiation [address] Bañuelos 4. History of dyslipidemia 5. History of diabetic neuropathy 6. Hypertension 7. Left nephrolithiasis 8. Status post surgery 9. B12 deficiency 10.History of radiation cystitis, Dr. Bañuelos 11.Urinary incontinence DISCHARGE INSTRUCTIONS: Transfer to [facility]. MEDICATIONS AT DISCHARGE: Dorzolamide/Timolol eye drops Flonase nasal spray two sprays daily Tylenol 6 hours for headache PRN Gabapentin 200mg PO bedtime Doxycycline 100mg IV Q 12 hours Cefepime 2 gram Q 12 hours Accu-check with insulin coverage protocol Toradol 30mg IV Q 8 hours for pain PRN Metformin 500mg twice a day Protonix 40mg twice a day Pravastatin 20mg PO daily Sitagliptin 100mg PO daily LABS: Hgb 10.6, hct 31, WBC 31,000 with shift to the left, creatinine 1, BUN 36, glucose 231, Liver profile normal, COVID negative. EKG sinus rhythm with no acute changes. Telemetry no cardiac arrhythmia, sinus rhythm. HOSPITAL COURSE: 86 year old white male who is up and about,plays golf three days a week seen in primary doctor office on 12/25/21 with cellulitis of perianal area. The patient was put on Keflex. The patient's condition deteriorated. Tuesday on followup he also had cellulitis of scrotal area and swelling of the scrotal. It was diffused redness of perianal area and scrotal area. The patient was put on IV Cefepime and IV Doxycycline. A dose of Vancomycin was given. The patient had history of having a fever night prior to hospitalization. The patient's blood cultures has been negative. The patient has been afebrile for past 2 days while he is in the hospital WBC count has gone up from 22,000 on admission to 31,000. Now he has developed blackened area with induration on lower part of the scrotum which is around 1cm size oblong. There is a small area of induration black skin over it near to the scrotal area. The patient very likely need incision and drainage and surgical consultation. Transfer service of [facility] was called. Dr. Torres was kind enough to accept the patient under his service. The patient is oriented to time, place and person and agreeable for the transfer. He understands the risk of surgery and anaesthesia. Condition at the time of discharge is stable. TIME SPENT: More than 60 minutes. MG
--- NOTE | 2021-12-30 12:30 | PN ---
ADMISSION: Level 5 REST OF THEM: Intermediate FINAL DAY: D as in discharge MTDD
--- NOTE | 2021-12-30 13:31 | PN ---
DATE OF SERVICE: 12/29/21 SUBJECTIVE: The patient was seen and examined today with the Nurse Practitioner. The patient's condition is stable. He has improved some. Redness is little less than yesterday, still pain. We will continue to given Toradol. Continue to give antibiotics Cefepime and Doxycycline. The patient is afebrile. Cardiovascular status is stable. The patient is getting coverage with Accu-checks couple of times a day. The patient is DNR. I had talked to him personally and he says that at his age he doesn't want anything to be prolonged. When the time comes he is ready to go. He wants DNR. Son and daughter both were present. TIME SPENT: More than 30 minutes. Plan and coordination of the patient's care discussed in the presence of nurse. MG
[2021-12-30] MEDS ORDERED: XALATAN EACHEYE SCH (21:00)
--- NOTE | 2021-12-31 10:28 | PN ---
DATE OF SERVICE: 12/30/21 DISCHARGE NOTE SUBJECTIVE: 86 year old white male hospitalized 12/28/21 with cellulitis of perianal area and scrotal area. The patient has localized abscess on the scrotal area and perianal area with blacken skin with induration. The patient is feeling somewhat better but still weak. Has some pain in the perianal area, Toradol is helping. WBC count has gone up to 31,000. REVIEW OF SYSTEMS: CONSTITUTIONAL: No night sweats. No fatigue, malaise, lethargy. No fever or chills. HEENT: Eyes: No visual changes. No eye pain. No eye discharge. ENT: No runny nose. No epistaxis. No sinus pain. No sore throat. No odynophagia. No congestion. RESPIRATORY: No cough, no congestion. No hemoptysis. No shortness of breath. CARDIOVASCULAR: No angina symptoms. No CHF symptoms. No atypical chest pain for CAD. No palpitations. No PND. No orthopnea. GASTROINTESTINAL: No abdominal pain. No nausea or vomiting. No diarrhea or constipation. No hematemesis. No hematochezia. Appetite is same as he started out with. He doesn't like the food in the hospital. GENITOURINARY: No urgency. No frequency. No dysuria. No hematuria. No obstructive symptoms. No discharge. No pain. No significant abnormal bleeding. MUSCULOSKELETAL: No musculoskeletal pain; no joint swelling. NEUROLOGICAL: No headache. No neck pain. No syncope. No seizures. No dizziness. PSYCHIATRIC: Not anxious. No depression. No suicidal thoughts. No homicidal thoughts. SKIN: No rash. No lesions. No wounds. ENDOCRINE: No unexplained weight loss. No weight gain. HEMATOLOGIC/LYMPHATIC: No anemia. No purpura. No petechiae. No prolonged or excessive bleeding. No palpable lymph nodes. PHYSICAL EXAMINATION: VITAL SIGNS: Temperature 98, pulse 82, respiratory rate 20, blood pressure 120/64 and pulse ox 94% HEENT: Head normocephalic, atraumatic. Eyes: Extraocular muscles are intact. Pupils are equal, round and reactive to light and accommodation. Ears: No lesions. Nose appeared normal. Throat: No exudate or erythema. NECK: Supple. No JVD, no carotid bruit. No lymphadenopathy or thyromegaly. LUNGS: Decreased breath sounds but clear to auscultation. Percussion note normal. Chest symmetrical. HEART: S1, S2, no S3. No murmurs. No cyanosis or clubbing. No ascites. Pulses: Dorsalis pedis and posterior tibial pulses +1 to +2 bilaterally. ABDOMEN: Soft. Nontender. Bowel sounds active. No CVA tenderness. No mass felt. EXTREMITIES: No edema. Full range of motion of all extremities, equal. NEUROLOGIC: No focal deficit. Cranial nerves II through XII are grossly intact. No headache. No double vision. SKIN: Not dry. Intact. Turgor - normal. LYMPHATIC: No palpable lymph nodes/no lymphedema. MUSCULOSKELETAL: Normal joints with no swelling. Muscle tone is normal. LABS: Hgb 10.6, hct 31, WBC 31,000 normal differential, creatinine 1, BUN 36, potassium 3.7 ASSESSMENT: 1. Abscess formation in scrotal area and maybe perianal area near to the scrotal area PLAN: 1. Transfer the patient because the patient likely is going to need I&D. 2. Talked to the patient and he is agreeable. 3. He is oriented to time, place and person. The patient is DNR. TIME SPENT: More than 30 minutes. Plan and coordination of the patient's care discussed in the presence of nurse. MG
== END 2021-12-30 12:22 | disposition short-term general hospital (02) | DRG 603 ==
LOC: LAB 12:17 → MEDSURG A 13:37
PROVIDERS: ADMIT Internal Medicine; ATTEND Internal Medicine
DX: N49.2 Inflammatory disorders of scrotum; Z91.11 Patient's noncompliance with dietary regimen; E78.5 Hyperlipidemia, unspecified; Z79.899 Other long term (current) drug therapy; Z87.448 Personal history of other diseases of urinary system; E11.9 Type 2 diabetes mellitus without complications; Z51.81 Encounter for therapeutic drug level monitoring; N20.0 Calculus of kidney; L02.215 Cutaneous abscess of perineum; R50.9 Fever, unspecified; R05.9 Cough, unspecified; Z85.46 Personal history of malignant neoplasm of prostate; Z20.822 Contact with and (suspected) exposure to COVID-19; Z91.14 Patient's other noncompliance with medication regimen; Z92.3 Personal history of irradiation; M62.81 Muscle weakness (generalized); D51.9 Vitamin B12 deficiency anemia, unspecified; I10 Essential (primary) hypertension

== ENCOUNTER 2023-07-08 14:29 | Inpatient (IN) ==
[2023-07-08] MEDS: SODIUM CHLORIDE 1,000 ML IV ONE ×2 (15:01→16:32)
--- NOTE | 2023-07-08 15:02 | ED.PDOC ---
General ED Provider: Dr. YSABEL OCHOA DO Chief Complaint: Weakness Stated Complaint: 87 year old male with PMHx of fourniers gangrene, NIDDM, HTN, and HLD who is chronically conklin catheter and ostomy dependent who was BIBEMS with chief complaint of SOB and generalized weakness that has been worsening over the last several days. Patient recently diagnosed with a UTI and is taking macrobid BID. EMS reports patient was hypoxic on scene arrival with SpO2 in the high 80s which normalized > 92% after placement on 2 L O2 via NC. Patient admits to associated chills. Denies fever, syncope, headache, chest pain, new cough, N/V/D, bloody stools, flank pain, or new focal weakness or numbness. No other associated symptoms or modifying factors at this time. Time Seen by Provider: 07/08/23 14:36 Primary Care Provider: VIPUL AJ MD Nursing and Triage Documentation Reviewed and Agree: Yes What is Opioid Naive?: *Opioid Naive implies the patient is not already taking opioids or not chronically receiving opioids on a daily basis. *PRN dosing is not "usually" associated with tolerance. *Patients are at higher risk of over-sedation and aspiration. What is Opioid Tolerant?: *Opioid Tolerance implies less than the expected response to an opioid. *Acquired tolerance is defined by the patient taking 60mg of oral morphine daily (or equianalgesic dose of another opioid) for 1 week or more. *Often associated with chronic pain. *May take more than usual dose to achieve desired pain control. Review of Systems Review Of Systems Constitutional: Reports No symptoms All Other Systems: Reviewed and Negative [facility] Medical History Glaucoma 2009 LEFT EYE H40.9 - Unspecified glaucoma (ICD-10) Cataract BILATERAL H26.9 - Unspecified cataract (ICD-10) Seborrhea L21.9 - Seborrheic dermatitis, unspecified (ICD-10) Melanoma 2005 TO THE RIGHT SIDE OF THE RIGHT EYE C43.9 - Malignant melanoma of skin, unspecified (ICD-10) Calculus of kidney 2013 N20.0 - Calculus of kidney (ICD-10) Varicella HAD CHICKEN POX A CHILD B01.9 - Varicella without complication (ICD-10) Hearing problem USES RIGHT AND LEFT HEARING ADES H91.90 - Unspecified hearing loss, unspecified ear (ICD-10) Mumps HAD A CHILD B26.9 - Mumps without complication (ICD-10) Measles HAD A CHILD B05.9 - Measles without complication (ICD-10) Stress incontinence, male DUE TO CATHETERIZATION FOR KIDNEY STONE 2013 N39.3 - Stress incontinence (female) (male) (ICD-10) Family History Mother , HEART at age 69. Breast cancer, left Cardiac disease SISTER , COPD at age 76. COPD (chronic obstructive pulmonary disease) Asthma BROTHER , LIVER PROBLEMS at age 55. No problems noted. 19 CHILD , MALIGNANT BRAIN TUMO at age 11. No problems noted. 19 CHILD Breast cancer, left Social History Smoking and tobacco status: Former smoker Alcohol intake: never Counseling given: No Substance use type: does not use Counseling given: No Taylor/amish: CHRISTIANITY Special taylor needs: No Agree to transfusion: Yes Adopted: No Caregiver/support person: No Foster care: No Household members: none Housing: house Marital status: D Lives independently: Yes Number of children: 3 service: Yes MCC: No Current occupational status: retired Pets and animals: No Leisure activites: other History of recent travel: No Sexually active: No Do you think of yourself as: straight/heterosexual Current gender identity: male Seatbelt use: always Drives intoxicated or rides with intoxicated sheet pile driver operator: No Water heater temperature set < 120 degrees: Yes Working smoke detector in home: Yes Fire extinguisher in home: Yes Carbon monoxide detector in home: Yes Firearms in home: No Surgical History Cataract extraction and insertion of intraocular lens OCTOBER 2014 LEFT EYE History of orthopedic surgery RIGHT HAND Z98.890 - Other specified postprocedural states (ICD-10) Physical Exam Physical Exam Appearance: Reports Ill-appearing (chronically ill appearing) Ill-appearing: Moderate Pain Distress: None Eyes: Reports ANDREW and EOMI ENT: Reports Ears normal Neck: Supple Respiratory: Reports Airway patent, Respirations nonlabored and Crackles (R lung base diminished with rales on auscultation) Cardiovascular: Reports Tachycardia GI/: Reports Soft, Nontender and Other (Ostomy appears to be working with adequate output. Indwelling conklin catheter secured in place. Output is dark with some sediment notable in tubing. ) Musculoskeletal: Reports ROM intact, No edema and Other (generalized weakness x 4 extremities. No lateralizing deficits) Skin: Reports Warm, Dry and Pale Neurological: Reports Sensation intact, Motor intact, Alert and Oriented Psychiatric: Reports Affect appropriate and Mood appropriate Interpretation EKG Interpretation EKG Interpretation By: ED Physician Time of EKG #1: 15:30 Rate: Tachy Rhythm: Sinus Ectopy: None [place]: NL ST Segment: Normal Interpretation: No evidence of STEMI on my independent interpretation of this EKG EKG Comparison: No significant changes Course Course 07/08/23 14:58 07/08/23 14:58 Orders, Labs, Meds: Lab Review 07/08/23 07/08/23 14:45 14:58 WBC 22.94 H RBC 4.18 L Hgb 12.7 L Hct 39.3 L MCV 94.0 MCH 30.4 MCHC 32.3 RDW Coeff of Pat 12.7 Plt Count 348 Immature Gran % (Auto) 0.4 Neut % (Auto) 88.3 H Lymph % (Auto) 4.2 L Weld % (Auto) 6.2 Eos % (Auto) 0.9 Baso % (Auto) 0.0 Neut # (Auto) 20.2 H Lymph # (Auto) 1.0 Weld # (Auto) 1.4 Eos # (Auto) 0.2 Baso # (Auto) 0.0 Immature Gran # (Auto) 0.1 Sodium 132.2 L Potassium 3.76 Chloride 100.9 Carbon Dioxide 24.1 Anion Gap 10.96 BUN 21.8 H Creatinine 0.54 L Estimated GFR (MDRD) 144.00 BUN/Creatinine Ratio 40.37 Glucose 231.0 H Lactic Acid 1.41 Calcium 9.07 Total Bilirubin 0.84 AST 48.2 ALT 35.8 Alkaline Phosphatase 78.5 Troponin I < 0.012 NT-Pro-B Natriuret Pep 137 Total Protein 7.29 Albumin 3.71 Globulin 3.58 Albumin/Globulin Ratio 1.03 Procalcitonin 0.10 H Urine Color Yellow Urine Clarity Cloudy Urine pH 5.0 Ur Specific [place] 1.025 Urine Protein 1+ H Urine Glucose (UA) Negative Urine Ketones Trace H Urine Blood 2+ H Urine Nitrite Positive H Urine Bilirubin Negative Urine Urobilinogen 0.2 Ur Leukocyte Esterase 2+ H Urine Microscopic RBC 20-30 Urine Microscopic WBC 50-100 Ur Squamous Epith Cells 0-2 Triple Phos Crystals 1+ Urine Bacteria 2+ Influ A Molecular Assay Negative by naat Influ B Molecular Assay Negative by naat SARS CoV-2 RNA Rapid KARINA Negative Orders Category Date Time Status ADMIT PATIENT INPATIENT .TO [facility] (MONITORED BED) ADMISSION 07/08/23 16:03 Active TELEMETRY MONITORING TELE CARE 07/08/23 16:04 Active ED APPLY O2 .ONCE EMERGENCY 07/08/23 14:34 Active ED TIER AND DETONATOR APPLIED .ONCE EMERGENCY 07/08/23 14:34 Active ED VITAL SIGNS Q1HR EMERGENCY 07/08/23 14:34 Active CBC W/ AUTO DIFF Stat LAB 07/08/23 14:58 Completed COMPREHENSIVE METABOLIC PANEL Stat LAB 07/08/23 14:58 Completed COVID [SARS COV-2 RNA RAPID KARINA] Stat LAB 07/08/23 14:45 Completed FLU A & B MOLECULAR [FLU A/B MOLECULAR] Stat LAB 07/08/23 14:45 Completed LACTIC ACID Stat LAB 07/08/23 14:58 Completed LACTIC ACID Stat LAB 07/08/23 16:01 Ordered NT-PROBNP(ED) Stat LAB 07/08/23 14:58 Completed PROCALCITONIN Stat LAB 07/08/23 14:58 Completed TROPONIN I Stat LAB 07/08/23 14:58 Completed URINALYSIS C & S IF INDICATED Stat LAB 07/08/23 14:45 Completed URINE CULTURE Stat LAB 07/08/23 14:45 Received VANCOMYCIN,TROUGH Stat LAB 07/09/23 05:00 Ordered Ertapenem Sodium [Invanz] 1 gm Meds 07/08/23 15:54 Active 0.9 % Sodium Chloride [Sodium Chloride] 50 ml IV ONCE Lidocaine HCl/Pf [Lidocaine 1% 5 ml Sdv] Meds 07/08/23 15:54 Discontinued 3.2 ml IM ONCE ONE Sodium Chloride 0.9% [Sodium Chloride] 1,000 ml Meds 07/08/23 14:35 Discontinued IV BOLUS Sodium Chloride 0.9% [Sodium Chloride] 1,000 ml Meds 07/08/23 15:57 Active IV BOLUS Vancomycin/Water For Inj (Peg) [Vancomycin 1.5 Gram/300 Meds 07/08/23 15:55 Active ml Premix] 1.5 gm in 300 ml IV ONCE CHEST, 1V AP ONLY Stat RADS 07/08/23 14:34 Completed Medications Generic Name Dose Route Start Last Admin Trade Name Freq PRN Reason Stop Dose Admin Ertapenem 1 gm/ Sodium 50 mls @ 100 mls/hr 07/08/23 15:54 Chloride IV 07/08/23 16:23 ONCE ONE VANCOMYCIN/WATER FOR INJ (PEG) 1.5 gm in 300 mls @ 200 mls/hr 07/08/23 15:55 Vancomycin 1.5 Gram/300 Ml Premix IV 07/08/23 17:24 ONCE ONE Sodium Chloride 1,000 mls @ 1,000 mls/hr 07/08/23 15:57 Sodium Chloride IV 07/08/23 16:56 BOLUS ONE Discontinued Medications Generic Name Dose Route Start Last Admin Trade Name Freq PRN Reason Stop Dose Admin Sodium Chloride 1,000 mls @ 1,000 mls/hr 07/08/23 14:35 07/08/23 15:01 Sodium Chloride IV 07/08/23 15:34 1,000 mls/hr BOLUS ONE Administration Lidocaine HCl 3.2 ml 07/08/23 15:54 Lidocaine 1% 5 Ml Sdv IM 07/08/23 15:55 ONCE ONE Vital Signs: Temp Pulse Resp BP Pulse Ox O2 Flow Rate 07/08/23 14:41 2 07/08/23 14:31 99.8 F 127 H 24 H 129/76 89 L Discharge Plan Discharge Patient Disposition: ADMITTED INPATIENT Discharge Problem: Acute hypoxic respiratory failure, Acute UTI Community acquired pneumonia Qualifiers: Laterality: right Lung location: lower lobe of lung Qualified Code(s): J18.9 - Pneumonia, unspecified organism Sepsis Qualifiers: Sepsis type: sepsis due to unspecified organism Sepsis acute organ dysfunction status: without acute organ dysfunction Qualified Code(s): A41.9 - Sepsis, unspecified organism Did you review [place] [employer] for ALL controlled substances?: Not Applicable ED Provider: YSABEL OCHOA Condition: Stable Physician Progress Note: Discussed recommendation to admit for ongoing medical management at this time. Patient comfortable with plan. Discussed with hospitalist program coordinator executive education and accepts patient for admission. Discussed with patients PCP Dr. Aj immediately after conversation. Patient septic with primary source UTI vs PNA. Previous urine C&S indicates extensive abx resistance. Patient placed on ertapenem and vancomycin. Tachycardia improving with IV fluids and maintaining SpO2 > 92% on 2 lpm O2 via NC. Patient AAOx4, tolerating PO intake, and stable at time of ED departure.
[2023-07-08 15:15] LABS: EOSINOPHILS # (AUTO) 0.2 K/ul (0.0-0.7); EOSINOPHILS % (AUTO) 0.9 % (0.0-7.0); HEMATOCRIT 39.3 % (42.0-52.0); HEMOGLOBIN 12.7 g/dl (14.0-18.0); IMMATURE GRANULOCYTE # (AUTO) 0.1 (0.0-1.0); IMMATURE GRANULOCYTE % (AUTO) 0.4 % (0.0-5.0); LYMPHOCYTES % (AUTO) 4.2 (10.0-50.0); MEAN CORPUSCULAR HEMOGLOBIN 30.4 pg (27.0-31.0); MEAN CORPUSCULAR HGB CONC 32.3 (31.8-35.4); MONOCYTES # (AUTO) 1.4 K/uL (0.4-2.0); MONOCYTES % (AUTO) 6.2 (0-10); NEUTROPHILS # (AUTO) 20.2 K/ul (2.0-6.9); NEUTROPHILS % (AUTO) 88.3 % (42.2-75.2); PLATELET COUNT 348 10^3/uL (140-440); RDW COEFFICIENT OF VARIATION 12.7 % (11.6-14.8); RED BLOOD COUNT 4.18 10^6/ul (4.70-6.10); WHITE BLOOD COUNT 22.94 K/ul (4.2-10.2)
[2023-07-08 15:17] LABS: BILIRUBIN,URINE Negative (NEGATIVE); CLARITY,URINE Cloudy (CLEAR); COLOR,URINE Yellow (YELLOW); GLUCOSE, URINE (UA) Negative (NEGATIVE); KETONES,URINE Trace (NEGATIVE); LEUKOCYTE ESTERASE ,URINE 2+ (NEGATIVE); NITRITE,URINE Positive (NEGATIVE); PROTEIN,URINE 1+ (NEGATIVE); URINE, BLOOD 2+ (NEGATIVE); UROBILINOGEN,URINE 0.2 (0.2)
[2023-07-08 15:18] LABS: ALANINE AMINOTRANSFERASE 35.8 U/L (0-50); ALBUMIN 3.71 g/dL (3.5-5.0); ALKALINE PHOSPHATASE 78.5 U/L (56-119); ASPARTATE AMINO TRANSFERASE 48.2 U/L (17-59); BILIRUBIN,TOTAL 0.84 mg/dL (0.2-1.3); BLOOD UREA NITROGEN 21.8 mg/dL (9-20); CALCIUM 9.07 mg/dL (8.4-10.2); CARBON DIOXIDE 24.1 mmol/L (22-30.0); CHLORIDE 100.9 mmol/L (98-107); CREATININE 0.54 mg/dL (0.60-1.10); POTASSIUM 3.76 mmol/L (3.5-5.1); SODIUM 132.2 mmol/L (134.5-145); TOTAL PROTEIN 7.29 g/dL (6.3-8.2)
[2023-07-08 15:26] LABS: MOLECULAR FLU A NEGATIVE BY NAAT (NEGATIVE); MOLECULAR FLU B NEGATIVE BY NAAT (NEGATIVE); SARS COV-2 RNA RAPID NAAT NEGATIVE (NEGATIVE)
[2023-07-08 15:30] LABS: TROPONIN I < 0.012 ng/ml (0.0000-0.120)
[2023-07-08 15:31] LABS: BACTERIA,URINE 2+ (NOT PRESENT); SQUAMOUS EPITHELIAL CELL,UR 0-2 (0-5); TRIPLE PHOSPHATE CRYSTAL,UR 1+ (NOT PRESENT); URINE RBC, MICROSCOPIC 20-30 (0-2); URINE WBC, MICROSCOPIC 50-100 (0-2)
--- NOTE | 2023-07-08 15:38 | DI ---
EXAM: CHEST RADIOGRAPH TECHNIQUE: Single frontal chest radiograph. HISTORY: Shortness of breath. COMPARISON: 12/28/2021 FINDINGS: There is interstitial pneumonia in the right lower lobe. The heart size is normal. The osseous structures are unremarkable. IMPRESSION: 1. Right lower lobe interstitial pneumonia
[2023-07-08] MEDS ORDERED: LIDOCAINE 1% 5 ML SDV IM ONE (15:54)
[2023-07-08] MEDS ORDERED: INVANZ 1 GM in SODIUM CHLORIDE 50 ML IV ONE (15:54)
[2023-07-08] MEDS: VANCOMYCIN 1.5 GRAM/300 ML PREMIX 1.5 GM/300 ML BAG IV ONE (16:32)
[2023-07-08 17:53] LABS: ABG O2 HGB 92.3 % (95-100); ABG PH 7.44 (7.35-7.45); BEecf 1.6 (-2.0-3.0); COHb 2.3 (0.5-1.5); HCO3 25.8 (21-28); MetHb 1.5 (0-1.5); sO2 93.5 % (94-98); tHb 13.7 g/dl (11.7-17.4)
[2023-07-08] MEDS: MERREM 1 GM/50 ML NACL 1 GM/50 ML BAG IV SCH (18:10)
[2023-07-08 18:21] VITALS: BMI 20.8
[2023-07-08] MEDS: DUONEB NEB SCH (19:00)
[2023-07-08] MEDS: NORCO 7.5-325 PO PRN (19:18)
[2023-07-08] MEDS ORDERED: NORCO 7.5-325 PO PRN (19:57)
[2023-07-08] MEDS ORDERED: NON-FORMULARY MEDICATION (Insulin Degludec [Tresiba Flextouch U-200] 200 unit/mL (3 mL) in SUBCUT SCH (20:00)
[2023-07-08] MEDS: ULTRAM PO SCH (20:32)
[2023-07-08] MEDS: HUMALOG SUBCUT PRN (20:32)
[2023-07-08] MEDS: PRAVACHOL PO SCH (20:32)
[2023-07-08] MEDS: COSOPT EACHEYE SCH (20:35)
[2023-07-08] MEDS: XALATAN EACHEYE SCH (20:45)
[2023-07-08] MEDS: DITROPAN PO SCH (20:47)
[2023-07-09 05:35] LABS: BASOPHILS # (AUTO) 0.1 K/uL (0-0.2); BASOPHILS % (AUTO) 0.2 % (0.0-3.0); EOSINOPHILS # (AUTO) 0.1 K/ul (0.0-0.7); EOSINOPHILS % (AUTO) 0.2 % (0.0-7.0); HEMATOCRIT 33.9 % (42.0-52.0); HEMOGLOBIN 10.9 g/dl (14.0-18.0); IMMATURE GRANULOCYTE # (AUTO) 0.2 (0.0-1.0); IMMATURE GRANULOCYTE % (AUTO) 0.7 % (0.0-5.0); LYMPHOCYTES # (AUTO) 1.3 K/uL (0.60-3.4); LYMPHOCYTES % (AUTO) 6.1 (10.0-50.0); MEAN CORPUSCULAR HEMOGLOBIN 30.4 pg (27.0-31.0); MEAN CORPUSCULAR HGB CONC 32.2 (31.8-35.4); MEAN CORPUSCULAR VOLUME 94.4 fl (80.0-94.0); MONOCYTES # (AUTO) 1.4 K/uL (0.4-2.0); MONOCYTES % (AUTO) 6.5 (0-10); NEUTROPHILS # (AUTO) 18.5 K/ul (2.0-6.9); NEUTROPHILS % (AUTO) 86.3 % (42.2-75.2); PLATELET COUNT 324 10^3/uL (140-440); RED BLOOD COUNT 3.59 10^6/ul (4.70-6.10)
[2023-07-09 05:46] LABS: ALBUMIN 3.1 g/dL (3.5-5.0); ALKALINE PHOSPHATASE 61.6 U/L (56-119); ASPARTATE AMINO TRANSFERASE 38.9 U/L (17-59); BILIRUBIN,TOTAL 0.89 mg/dL (0.2-1.3); BLOOD UREA NITROGEN 18.5 mg/dL (9-20); CALCIUM 8.73 mg/dL (8.4-10.2); CARBON DIOXIDE 28.1 mmol/L (22-30.0); CHLORIDE 104.4 mmol/L (98-107); CREATININE 0.54 mg/dL (0.60-1.10); GLUCOSE 160.8 mg/dL (74-106); POTASSIUM 3.79 mmol/L (3.5-5.1); SODIUM 135.2 mmol/L (134.5-145); TOTAL PROTEIN 6.38 g/dL (6.3-8.2)
[2023-07-09] MEDS: VANCOMYCIN 1.5 GRAM/300 ML PREMIX 1.5 GM/300 ML BAG IV SCH (05:55)
[2023-07-09] MEDS: COSOPT EACHEYE SCH (09:12)
[2023-07-09] MEDS: LANTUS SUBCUT SCH (09:13)
--- NOTE | 2023-07-09 09:29 | PCM ---
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 He was recently treated for a UTI on that grew ESBL+ e coli. He was treated with macrobid 100 mg bid by his PCP. Pt unsure of start date. States that he's had issues with UTIs since having his conklin. He was noted to be tachycardic, mildly hypoxic in upper 80s, and tachypneic in the ER. He was treated as sepsis and given 2L of fluid, invanz and vanc. Invanz changed to merrem to treat ESBL and pneumonia. UA still positive for UTI. CXR showing right lower lobe pna. Lactic was normal. Procal and WBC count elevated. Conklin last changed 14 days ago. Patient lives at home alone and uses a walker to ambulate. Has meals delivered. Has home health. States he has someone come in daily. Case Discussed With Case Discussed With: Patient's case was discussed with the ER Physicians, Dr. Clancy. [facility] Medical History Glaucoma 2009 LEFT EYE H40.9 - Unspecified glaucoma (ICD-10) Cataract BILATERAL H26.9 - Unspecified cataract (ICD-10) Seborrhea L21.9 - Seborrheic dermatitis, unspecified (ICD-10) Melanoma 2004 TO THE RIGHT SIDE OF THE RIGHT EYE C43.9 - Malignant melanoma of skin, unspecified (ICD-10) Calculus of kidney 2013 N20.0 - Calculus of kidney (ICD-10) Varicella HAD CHICKEN POX A CHILD B01.9 - Varicella without complication (ICD-10) Hearing problem USES RIGHT AND LEFT HEARING ADES H91.90 - Unspecified hearing loss, unspecified ear (ICD-10) Mumps HAD A CHILD B26.9 - Mumps without complication (ICD-10) Measles HAD A CHILD B05.9 - Measles without complication (ICD-10) Stress incontinence, male DUE TO CATHETERIZATION FOR KIDNEY STONE 2013 N39.3 - Stress incontinence (female) (male) (ICD-10) Surgical History Cataract extraction and insertion of intraocular lens OCTOBER 2014 LEFT EYE History of orthopedic surgery RIGHT HAND Z98.890 - Other specified postprocedural states (ICD-10) Family History Mother , HEART at age 69. Breast cancer, left Cardiac disease SISTER , COPD at age 76. COPD (chronic obstructive pulmonary disease) Asthma BROTHER , LIVER PROBLEMS at age 55. No problems noted. 19 CHILD , MALIGNANT BRAIN TUMO at age 11. No problems noted. 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 Special taylor needs: No Agree to transfusion: Yes Adopted: No Caregiver/support person: No Foster care: No Household members: none Housing: house Marital status: D Lives independently: Yes Number of children: 3 service: Yes branch: [employer] longterm: No Current occupational status: retired Pets and animals: No Leisure activites: other History of recent travel: No Sexually active: No Do you think of yourself as: straight/heterosexual Current gender identity: male Seatbelt use: always Drives intoxicated or rides with 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 Water heater temperature set < 120 degrees: Yes Working smoke detector in home: Yes Fire extinguisher in home: Yes Carbon monoxide detector in home: Yes Firearms in home: No Allergies Allergies Allergy/AdvReac Type Severity Reaction Status Date / Time empagliflozin AdvReac Weight loss Verified 07/08/23 15:06 [From Jardiance] Current Medications Home Medications pravastatin 20 mg tablet 20 mg PO BEDTIME 12/28/21 [History Confirmed 07/08/23 Last Taken 07/07/23 20:00 20 mg] calcium carbonate 500 mg calcium (1,250 mg) chewable tablet (Calcium 500) 1,000 mg (2 x 500 mg calcium (1,250 mg)) PO QDAY #60 tabs 08/03/22 [Rx Confirmed 07/08/23 Last Taken 07/08/23 08:00 1,000 mg] cholecalciferol (vitamin D3) 50 mcg (2,000 unit) capsule 50 mcg PO QDAY #30 caps 08/03/22 [Rx Confirmed 07/08/23 Last Taken 07/08/23 08:00 50 mcg] oxybutynin chloride 5 mg tablet 5 mg PO QDAY 08/12/22 [History Confirmed 07/08/23 Last Taken 07/07/23 08:00 5 mg] calcitonin (salmon) 200 unit/actuation nasal spray 1 spray intranasal (ALT) QDAY #3.7 mL 12/28/22 [Rx Confirmed 07/08/23 Last Taken 07/07/23 08:00 1 spray] dorzolamide 22.3 mg-timolol 6.8 mg/mL eye drops 1 drp BOTHEYES BID #10 mL 12/28/22 [Rx Confirmed 07/08/23 Last Taken 07/08/23 08:00 1 drp] insulin degludec 200 unit/mL (3 mL) subcutaneous pen (Tresiba FlexTouch U-200 insulin) 15 unit (0.075 mL) subcut QDAY #9 mL 12/28/22 [Rx Confirmed 07/08/23 Last Taken 07/07/23 08:00 15 units] latanoprost 0.005 % eye drops 1 drp BOTHEYES QPM #2.5 mL 12/28/22 [Rx Confirmed 07/08/23 Last Taken 07/07/23 20:00 1 drp] pen needle, diabetic 32 gauge x 1/4" (Novofine 32) #100 ea 12/28/22 [Rx Confirmed 07/08/23 Last Taken Unknown] tramadol 50 mg tablet 50 mg PO TID pain #90 tabs 12/28/22 [Rx Confirmed 07/08/23 Last Taken 07/07/23 20:00 50 mg] meloxicam 15 mg tablet 15 mg PO QDAY PRN pain 04/28/23 [History Confirmed 07/08/23 Last Taken Unknown] dicyclomine 10 mg capsule 10 mg PO ONCE PRN bladder spasms #30 caps 05/04/23 [Rx Confirmed 07/08/23 Last Taken Unknown] gabapentin 100 mg capsule 100 - 200 mg (1 - 2 x 100 mg) PO QPM PRN muscle spasm #60 caps 05/04/23 [Rx Confirmed 07/08/23 Last Taken Unknown] mirtazapine 7.5 mg tablet 7.5 mg PO QPM #30 tabs 05/04/23 [Rx Confirmed 07/08/23 Last Taken 07/07/23 20:00 7.5 mg] nitrofurantoin monohydrate/macrocrystals 100 mg capsule (Macrobid) 100 mg PO Q12H #14 caps 07/04/23 [Rx Confirmed 07/08/23 Last Taken 07/08/23 08:00 100 mg] fluticasone propionate 50 mcg/actuation nasal spray,suspension See Rx Instructions .Route .COMPLEX #16 grams 07/07/23 [Rx Confirmed 07/08/23 Last Taken Unknown] hydrocodone 7.5 mg-acetaminophen 325 mg tablet 1 tab PO BID PRN pain 07/08/23 [History Confirmed 07/08/23 Last Taken 07/07/23 20:00 1 tab] Home Hydrocodone Bitart/Acetaminophen (Hydrocodone Bit/Acetaminophen 7.5/325 Mg Tablet) 1 tab PO BID PRN PRN Reason: Pain Last Admin: 07/09/23 05:12 Dose: 1 tab Albuterol/Ipratropium (Ipratropium/Albuterol Vial.Neb) 3 ml NEB RTQ6H [facility] Last Admin: 07/09/23 11:14 Dose: 3 ml Dorzolamide/Timolol (Dorzolamide Hcl/Timolol Maleat Opth 10 Ml Billie) 1 drop EACHEYE BID [facility] Last Admin: 07/09/23 09:12 Dose: 1 drop Enoxaparin Sodium (Enoxaparin Sodium 40 Mg/0.4 Ml Syr) 40 mg SUBCUT DAILY [facility] Last Admin: 07/09/23 10:56 Dose: 40 mg Gabapentin (Gabapentin 100 Mg Capsule) 100 mg PO QPM PRN PRN Reason: muscle spasm Guaifenesin (Guaifenesin 600 Mg Tablet.Er) 600 mg PO Q12HR [facility] Last Admin: 07/09/23 10:55 Dose: 600 mg Meropenem/Sodium Chloride (Merrem 1 Gm/50 Ml Nacl) 1 gm in 50 mls @ 100 mls/hr IV Q8HR MAHNAZ Stop: 07/11/23 17:59 Last Admin: 07/09/23 05:04 Dose: 100 mls/hr VANCOMYCIN/WATER FOR INJ (PEG) (Vancomycin 1.5 Gram/300 Ml Premix) 1.5 gm in 300 mls @ 200 mls/hr IV Q12HR MAHNAZ Stop: 07/12/23 05:59 Last Admin: 07/09/23 05:55 Dose: 200 mls/hr Insulin Glargine (Insulin Glargine,Hum.Rec.Anlog 100 Units/Ml) 15 unit SUBCUT DAILY [facility] Last Admin: 07/09/23 09:13 Dose: 15 unit Insulin Human Lispro (Insulin Lispro 100 Unit/Ml Vial) 0 unit SUBCUT PRN PRN; Protocol PRN Reason: Hyperglycemia Last Admin: 07/08/23 20:32 Dose: 2 unit Latanoprost (Latanoprost 2.5 Ml Opth Billie) 1 drop EACHEYE BEDTIME [facility] Last Admin: 07/08/23 20:47 Dose: Not Given Mirtazapine (Mirtazapine 15 Mg Tablet) 7.5 mg PO QPM [facility] Oxybutynin Chloride (Oxybutynin Chloride 5 Mg Tablet) 5 mg PO DAILY [facility] Last Admin: 07/09/23 09:12 Dose: 5 mg Pravastatin Sodium (Pravastatin Sodium 20 Mg Tablet) 20 mg PO BEDTIME [facility] Last Admin: 07/08/23 20:32 Dose: 20 mg Tramadol HCl (Tramadol Hcl 50 Mg Tablet) 50 mg PO TID [facility] Last Admin: 07/09/23 09:12 Dose: 50 mg Discontinued Medications Hydrocodone Bitart/Acetaminophen (Hydrocodone Bit/Acetaminophen 7.5/325 Mg Tablet) 1 tab PO BID PRN PRN Reason: MODERATE PAIN Dorzolamide/Timolol (Dorzolamide Hcl/Timolol Maleat Opth 10 Ml Billie) 1 drop EACHEYE BID [facility] Last Admin: 07/08/23 20:35 Dose: 1 drop Sodium Chloride (Sodium Chloride) 1,000 mls @ 1,000 mls/hr IV BOLUS ONE Stop: 07/08/23 15:34 Last Infusion: 07/08/23 16:20 Dose: Infused VANCOMYCIN/WATER FOR INJ (PEG) (Vancomycin 1.5 Gram/300 Ml Premix) 1.5 gm in 300 mls @ 200 mls/hr IV ONCE ONE Stop: 07/08/23 17:24 Last Admin: 07/08/23 16:32 Dose: 200 mls/hr Sodium Chloride (Sodium Chloride) 1,000 mls @ 1,000 mls/hr IV BOLUS ONE Stop: 07/08/23 16:56 Last Infusion: 07/08/23 19:20 Dose: Infused Non-Formulary Medication (Insulin Degludec [Tresiba Flextouch U-200]) 15 unit SUBCUT QDAY MAHNAZ Opioid Naive vs. Tolerant Does Patient Take Opioids?: Yes Is Patient Opioid Naive?: No What is Opioid Naive?: *Opioid Naive implies the patient is not already taking opioids or not chronically receiving opioids on a daily basis. *PRN dosing is not "usually" associated with tolerance. *Patients are at higher risk of over-sedation and aspiration. Is Patient Opioid Tolerant?: No What is Opioid Tolerant?: *Opioid Tolerance implies less than the expected response to an opioid. *Acquired tolerance is defined by the patient taking 60mg of oral morphine daily (or equianalgesic dose of another opioid) for 1 week or more. *Often associated with chronic pain. *May take more than usual dose to achieve desired pain control. Review of Systems Constitutional: Reports Fatigue and Weakness; Denies Fever Head: Reports Normocephalic and Atraumatic Throat: Denies Sore Throat Cardiovascular: Denies Chest pain, Chest Pressure or Edema Respiratory: Reports Cough and Shortness of air Gastrointestinal: Denies Nausea, Vomiting, Diarrhea, Abdominal pain or Melena Genitourinary: Reports Other (+chronic conklin ) Dermatologic: Denies Rashes Neurological: Reports Weakness; Denies Headache Physical examination Most Recent Vital Signs: Most Recent Vital Signs Temperature 97.7 F 07/09/23 05:10 Temperature Source Temporal Artery Scan 07/09/23 05:10 Temperature Source Infrared 07/08/23 14:31 Pulse Rate 83 07/09/23 05:10 Respiratory Rate 18 07/09/23 05:10 Blood Pressure 122/65 07/09/23 05:10 Blood Pressure Mean 84 07/09/23 05:10 Blood Pressure Left Arm 144/82 07/08/23 18:00 Blood Pressure Right Arm 171/101 07/08/23 18:00 Blood Pressure Location Right Arm 07/09/23 05:10 Blood Pressure Position Supine 07/09/23 05:10 O2 Sat by Pulse Oximetry 96 07/09/23 05:10 Oxygen Delivery Method Nasal Cannula 07/09/23 05:10 Oxygen Flow Rate 2 07/09/23 05:10 Height 6 ft 2 in 07/09/23 08:25 Weight 162 lb 3 oz 07/09/23 08:25 Telemetry Type Remote Telemetry 07/09/23 07:00 Telemetry Monitoring Continues 07/09/23 07:00 Telemetry Heart Rate 92 07/09/23 07:00 Telemetry SPO2 98 07/09/23 07:00 EKG RI Interval 0.18 07/09/23 07:00 EKG QRS Interval 0.07 07/09/23 07:00 Telemetry Strip Reading sr 07/09/23 07:00 Appearance: Positive No Apparent Distress, Alert and Oriented x3 and Other (+chronically ill appearing ) Skin: Positive [place], Warm and Good Turgor; Negative Rashes HEENT: Positive Normocephalic, Atraumatic and Oral Mucous Moist Neck: Positive Supple and Midline Trachea Chest/Lungs: Positive Clear to Auscultation Bilaterally; Negative Rales, Rhonci or Wheezes Heart: Positive RRR GI/: Positive Soft, Nontender, Bowel Sounds Normal and Other (+colostomy noted ) Extremities: Negative Edema Neurological: Positive Cranial Nerves Intact, Alert, Oriented and Other (+generalized weakness ) Psychiatric: Positive Oriented x4, Appropriate Mood and Appropriate Affect Labs This Visit Labs This Visit: Labs This Visit 07/08/23 07/08/23 07/08/23 14:45 14:46 14:58 WBC 22.94 H RBC 4.18 L Hgb 12.7 L Hct 39.3 L MCV 94.0 MCH 30.4 MCHC 32.3 RDW Coeff of Pat 12.7 Plt Count 348 Immature Gran % (Auto) 0.4 Neut % (Auto) 88.3 H Lymph % (Auto) 4.2 L [place] % (Auto) 6.2 Eos % (Auto) 0.9 Baso % (Auto) 0.0 Neut # (Auto) 20.2 H Lymph # (Auto) 1.0 [place] # (Auto) 1.4 Eos # (Auto) 0.2 Baso # (Auto) 0.0 Immature Gran # (Auto) 0.1 Puncture Site Rrad Base Excess 1.6 O2 Saturation 93.5 L ABG pH 7.44 ABG pCO2 38.0 ABG pO2 66.0 L ABG HCO3 25.8 ABG Total CO2 27.0 H Tomas Test + Hemoglobin 1.5 Oxyhemoglobin 92.3 L Carboxyhemoglobin 2.3 H Total Hemoglobin 13.7 O2 Delivery Device Cannula Oxygen Liter Flow 1.50 Sodium 132.2 L Potassium 3.76 Chloride 100.9 Carbon Dioxide 24.1 Anion Gap 10.96 BUN 21.8 H Creatinine 0.54 L Estimated GFR (MDRD) 144.00 BUN/Creatinine Ratio 40.37 Glucose 231.0 H Lactic Acid 1.41 Calcium 9.07 Total Bilirubin 0.84 AST 48.2 ALT 35.8 Alkaline Phosphatase 78.5 Troponin I < 0.012 NT-Pro-B Natriuret Pep 137 Total Protein 7.29 Albumin 3.71 Globulin 3.58 Albumin/Globulin Ratio 1.03 Procalcitonin 0.10 H Urine Color Yellow Urine Clarity Cloudy Urine pH 5.0 Ur Specific [place] 1.025 Urine Protein 1+ H Urine Glucose (UA) Negative Urine Ketones Trace H Urine Blood 2+ H Urine Nitrite Positive H Urine Bilirubin Negative Urine Urobilinogen 0.2 Ur Leukocyte Esterase 2+ H Urine Microscopic RBC 20-30 Urine Microscopic WBC 50-100 Ur Squamous Epith Cells 0-2 Triple Phos Crystals 1+ Urine Bacteria 2+ Vancomycin Trough Influ A Molecular Assay Negative by naat Influ B Molecular Assay Negative by naat SARS CoV-2 RNA Rapid KARINA Negative 07/08/23 07/08/23 07/09/23 16:01 17:56 05:03 WBC 21.40 H RBC 3.59 L Hgb 10.9 L Hct 33.9 L MCV 94.4 H MCH 30.4 MCHC 32.2 RDW Coeff of Pat 13.0 Plt Count 324 Immature Gran % (Auto) 0.7 Neut % (Auto) 86.3 H Lymph % (Auto) 6.1 L [place] % (Auto) 6.5 Eos % (Auto) 0.2 Baso % (Auto) 0.2 Neut # (Auto) 18.5 H Lymph # (Auto) 1.3 [place] # (Auto) 1.4 Eos # (Auto) 0.1 Baso # (Auto) 0.1 Immature Gran # (Auto) 0.2 Puncture Site Base Excess O2 Saturation ABG pH ABG pCO2 ABG pO2 ABG HCO3 ABG Total CO2 Tomas Test Hemoglobin Oxyhemoglobin Carboxyhemoglobin Total Hemoglobin O2 Delivery Device Oxygen Liter Flow Sodium 135.2 Potassium 3.79 Chloride 104.4 Carbon Dioxide 28.1 Anion Gap 6.49 BUN 18.5 Creatinine 0.54 L Estimated GFR (MDRD) 144.00 BUN/Creatinine Ratio 34.25 Glucose 160.8 H D Lactic Acid 1.38 Calcium 8.73 Total Bilirubin 0.89 AST 38.9 ALT 28.0 Alkaline Phosphatase 61.6 Troponin I NT-Pro-B Natriuret Pep Total Protein 6.38 Albumin 3.10 L Globulin 3.28 Albumin/Globulin Ratio 0.94 Procalcitonin 0.13 H 0.20 H Urine Color Urine Clarity Urine pH Ur Specific [place] Urine Protein Urine Glucose (UA) Urine Ketones Urine Blood Urine Nitrite Urine Bilirubin Urine Urobilinogen Ur Leukocyte Esterase Urine Microscopic RBC Urine Microscopic WBC Ur Squamous Epith Cells Triple Phos Crystals Urine Bacteria Vancomycin Trough 7.682 L Influ A Molecular Assay Influ B Molecular Assay SARS CoV-2 RNA Rapid KARINA Microbiology This Visit 07/08/23 14:45 Urine,Random Urine Culture - Preliminary Imaging Imaging: EXAM: CHEST RADIOGRAPH TECHNIQUE: Single frontal chest radiograph. HISTORY: Shortness of breath. COMPARISON: 12/28/2021 FINDINGS: There is interstitial pneumonia in the right lower lobe. The heart size is normal. The osseous structures are unremarkable. IMPRESSION: 1. Right lower lobe interstitial pneumonia Review Statement Review Statement: I have independently reviewed and interpreted the labs/EKGs/imaging that were ordered by the ER provider. I have reviewed all outside records that are available currently in our EMR including imaging/notes/labs from previous visits. Plan Plan: 1. Acute hypoxic respiratory failure in setting of pneumonia - Wean O2 when able, cont abx 2. Right lower lobe pneumonia, community acquired - Vanc and merrem. MRSA swab, legionella urine antigen, strep pneumo urine antigen. Trend wbc count and procal. 3. UTI with chronic conklin, most recently ESBL+ e coli - Vanc and merrem, will cover for ESBL+ e coli, however prelim is showing gram + organism. MRSA swab pending. Change conklin once organism is back. 4. Sepsis in setting of RLL PNA and UTI - LA normal, pt received 2L of fluids, euvolemic currently and eating/drinking. Follow blood cultures. 5. DMT2 - Cont long acting. Diabetic diet. Accuchecks qachs. Humalog sliding scale. 6. Hyperlipidemia - Cont home meds DVT Prophylaxis: Lovenox Time Spent: Greater than 80 minutes spent with patient, 50% of the time spent with this patient was devoted to counseling and coordination of care. [facility]in minutes spent discussing advance care planning. FULL CODE Disposition: Will require at least 2 midnights. Could be a swingbed candidate since from home. Admit to: Inpatient Discussed Plan of Care with Dr. Adrian Lopez. Medications Medication Orders: Medications Ordered Category Date Time Status Dorzolamide HCl/Timolol Maleat [Cosopt] Meds 07/09/23 09:00 Active 1 drop EACHEYE BID Gabapentin [Neurontin] Meds 07/08/23 19:57 Active 100 mg PO QPM PRN Hydrocodone Bit/Acetaminophen [[place] 7.5-325] Meds 07/08/23 18:54 Active 1 tab PO BID PRN Insulin Glargine,Hum.rec.anlog [Lantus] Meds 07/09/23 09:00 Active 15 unit SUBCUT DAILY Insulin Lispro [Humalog] Meds 07/08/23 17:40 Active See Protocol SUBCUT PRN PRN Ipratropium/Albuterol Neb [Duoneb] Meds 07/08/23 18:00 Active 3 ml NEB RTQ6H Latanoprost [Xalatan] Meds 07/08/23 21:00 Active 1 drop EACHEYE BEDTIME Meropenem 1Gm/NaCl Premix [Merrem 1 gm/50 ml NaCl] Meds 07/08/23 18:00 Active 1 gm in 50 ml IV Q8HR Mirtazapine [Remeron] Meds 07/09/23 17:00 Active 7.5 mg PO QPM Oxybutynin Chloride [Ditropan] Meds 07/08/23 20:31 Active 5 mg PO DAILY Pravastatin Sodium [Pravachol] Meds 07/08/23 21:00 Active 20 mg PO BEDTIME Tramadol HCl [Ultram] Meds 07/08/23 21:00 Active 50 mg PO TID Vancomycin/Water For Inj (Peg) [Vancomycin 1.5 Gram/300 Meds 07/09/23 06:00 Active ml Premix] 1.5 gm in 300 ml IV Q12HR
[2023-07-09] MEDS: MUCINEX PO SCH (10:55)
[2023-07-09] MEDS: LOVENOX SUBCUT SCH (10:56)
[2023-07-09] MEDS: REMERON PO SCH (17:37)
[2023-07-10 05:55] LABS: ALBUMIN 2.97 g/dL (3.5-5.0); ALKALINE PHOSPHATASE 63.2 U/L (56-119); ASPARTATE AMINO TRANSFERASE 35.2 U/L (17-59); BILIRUBIN,TOTAL 0.67 mg/dL (0.2-1.3); BLOOD UREA NITROGEN 24.3 mg/dL (9-20); CALCIUM 8.8 mg/dL (8.4-10.2); CHLORIDE 102.5 mmol/L (98-107); CREATININE 0.63 mg/dL (0.60-1.10); GLUCOSE 124.8 mg/dL (74-106); POTASSIUM 4.03 mmol/L (3.5-5.1); SODIUM 132.8 mmol/L (134.5-145); TOTAL PROTEIN 6.29 g/dL (6.3-8.2)
[2023-07-10 06:04] LABS: BASOPHILS % (AUTO) 0.4 % (0.0-3.0); EOSINOPHILS # (AUTO) 0.3 K/ul (0.0-0.7); EOSINOPHILS % (AUTO) 3.7 % (0.0-7.0); HEMATOCRIT 32.4 % (42.0-52.0); HEMOGLOBIN 10.1 g/dl (14.0-18.0); IMMATURE GRANULOCYTE % (AUTO) 0.4 % (0.0-5.0); LYMPHOCYTES # (AUTO) 1.7 K/uL (0.60-3.4); LYMPHOCYTES % (AUTO) 18.6 (10.0-50.0); MEAN CORPUSCULAR HEMOGLOBIN 30.1 pg (27.0-31.0); MEAN CORPUSCULAR HGB CONC 31.2 (31.8-35.4); MEAN CORPUSCULAR VOLUME 96.4 fl (80.0-94.0); MONOCYTES # (AUTO) 0.9 K/uL (0.4-2.0); MONOCYTES % (AUTO) 10.1 (0-10); NEUTROPHILS % (AUTO) 66.8 % (42.2-75.2); PLATELET COUNT 315 10^3/uL (140-440); RDW COEFFICIENT OF VARIATION 13.2 % (11.6-14.8); RED BLOOD COUNT 3.36 10^6/ul (4.70-6.10); WHITE BLOOD COUNT 9.02 K/ul (4.2-10.2)
[2023-07-10] MEDS: INVANZ 1 GM in SODIUM CHLORIDE 50 ML IV SCH (09:23)
--- NOTE | 2023-07-10 10:00 | PCM.PROG ---
Date/Time Seen Date Seen by Provider: 07/10/23 Time Seen by Provider: 09:00 Provider Provider: WILLIAMS LOCKHART PA-C, [facility] Chief Complaint Chief Complaint: SEPSIS Subjective Subjective: Patient states he's feeling better today. He's hoping with some therapy he may be able to golf again some day. Encouraged him to get to chair for lunch today. Objective Appearance: Positive No Apparent Distress, Alert and Oriented x3 and Other (+chronically ill ) Chest/Lungs: Positive Clear to Auscultation Bilaterally; Negative Rales, Rhonci or Wheezes Heart: Positive RRR GI/: Positive Soft, Nontender, Bowel Sounds Normal, No Distention and Other (+colostomy ) Neurological: Positive Cranial Nerves Intact, Alert, Oriented and Other (+generalized weakness ) Vital Signs Vital Signs: Vital Signs: Last 24 Hours 07/09/23 10:00 07/09/23 10:00 07/09/23 13:00 Temperature 97.7 F Temperature Source Temporal Artery Scan Pulse Rate 94 Respiratory Rate 18 Blood Pressure 128/72 Blood Pressure Mean 90 Blood Pressure Location Left Arm Blood Pressure Position Sitting O2 Sat by Pulse Oximetry 98 98 Oxygen Delivery Method Nasal Cannula Nasal Cannula Oxygen Flow Rate 2 2 Telemetry Type Remote Telemetry Telemetry Monitoring Continues Telemetry Heart Rate 68 Telemetry SPO2 97 EKG SC Interval 0.20 EKG QRS Interval 0.06 Telemetry Strip Reading SR 07/09/23 14:00 07/09/23 14:00 07/09/23 18:00 Temperature 97.9 F 97.3 F L Temperature Source Temporal Artery Scan Tympanic Pulse Rate 87 84 Respiratory Rate 18 20 Blood Pressure 113/58 L 138/69 Blood Pressure Mean 76 92 Blood Pressure Location Left Arm Blood Pressure Position Sitting O2 Sat by Pulse Oximetry 96 97 96 Oxygen Delivery Method Nasal Cannula Nasal Cannula Nasal Cannula Oxygen Flow Rate 2 2 2 Telemetry Type Telemetry Monitoring Telemetry Heart Rate Telemetry SPO2 EKG SC Interval EKG QRS Interval Telemetry Strip Reading 07/09/23 19:00 07/09/23 19:33 07/09/23 20:00 Temperature Temperature Source Pulse Rate Respiratory Rate Blood Pressure Blood Pressure Mean Blood Pressure Location Blood Pressure Position O2 Sat by Pulse Oximetry Oxygen Delivery Method Nasal Cannula Nasal Cannula Oxygen Flow Rate 2 2 Telemetry Type Remote Telemetry Telemetry Monitoring Continues Telemetry Heart Rate 74 Telemetry SPO2 96 EKG SC Interval 0.18 EKG QRS Interval 0.06 Telemetry Strip Reading SR 07/09/23 21:23 07/10/23 01:00 07/10/23 03:00 Temperature 97.9 F Temperature Source Temporal Artery Scan Pulse Rate 77 73 Respiratory Rate 18 18 Blood Pressure 127/53 L Blood Pressure Mean 77 Blood Pressure Location Left Arm Blood Pressure Position Supine O2 Sat by Pulse Oximetry 99 97 Oxygen Delivery Method Nasal Cannula Nasal Cannula Oxygen Flow Rate 2 2 Telemetry Type Remote Telemetry Telemetry Monitoring Continues Telemetry Heart Rate 68 Telemetry SPO2 92 L EKG SC Interval 0.18 EKG QRS Interval 0.06 Telemetry Strip Reading SR 07/10/23 04:59 07/10/23 05:12 07/10/23 07:00 Temperature 97.9 F Temperature Source Temporal Artery Scan Pulse Rate 75 Respiratory Rate 18 Blood Pressure 151/81 H Blood Pressure Mean 104 Blood Pressure Location Left Arm Blood Pressure Position Supine O2 Sat by Pulse Oximetry 97 99 Oxygen Delivery Method Nasal Cannula Nasal Cannula Oxygen Flow Rate 2 2 Telemetry Type Remote Telemetry Telemetry Monitoring Continues Telemetry Heart Rate 68 Telemetry SPO2 98 EKG SC Interval 0.18 EKG QRS Interval 0.08 Telemetry Strip Reading NSR Lab Results Lab Results: Lab Results: Last 24 Hours 07/10/23 05:11 WBC 9.02 D RBC 3.36 L Hgb 10.1 L Hct 32.4 L MCV 96.4 H MCH 30.1 MCHC 31.2 L RDW Coeff of Pat 13.2 Plt Count 315 Immature Gran % (Auto) 0.4 Neut % (Auto) 66.8 Lymph % (Auto) 18.6 [place] % (Auto) 10.1 H Eos % (Auto) 3.7 Baso % (Auto) 0.4 Neut # (Auto) 6.0 Lymph # (Auto) 1.7 [place] # (Auto) 0.9 Eos # (Auto) 0.3 Baso # (Auto) 0.0 Immature Gran # (Auto) 0.0 Sodium 132.8 L Potassium 4.03 Chloride 102.5 Carbon Dioxide 27.0 Anion Gap 7.33 BUN 24.3 H Creatinine 0.63 Estimated GFR (MDRD) 120.00 BUN/Creatinine Ratio 38.57 Glucose 124.8 H Calcium 8.80 Total Bilirubin 0.67 AST 35.2 ALT 24.0 Alkaline Phosphatase 63.2 Total Protein 6.29 L Albumin 2.97 L Globulin 3.32 Albumin/Globulin Ratio 0.89 Procalcitonin 0.16 H Additional Comments Additional Comments: I have independently reviewed and interpreted the labs/EKGs/imaging ordered during this hospital stay. I have reviewed outside records that are available in our EMR that pertain to medical stay including imaging/notes/labs from previous visits. Active Medications Active Medications: Medications Generic Name Dose Route Start Last Admin Trade Name Freq PRN Reason Stop Dose Admin Hydrocodone Bitart/Acetaminophen 1 tab 07/08/23 18:54 07/10/23 03:00 Hydrocodone Bit/Acetaminophen 7.5/325 Mg Tablet PO 1 tab BID PRN Administration Pain Albuterol/Ipratropium 3 ml 07/08/23 18:00 07/10/23 05:00 Ipratropium/Albuterol Vial.Neb NEB 3 ml RTQ6H MAHNAZ Administration Dorzolamide/Timolol 1 drop 07/09/23 09:00 07/10/23 09:01 Dorzolamide Hcl/Timolol Maleat Opth 10 Ml Billie EACHEYE 1 drop BID MAHNAZ Administration Enoxaparin Sodium 40 mg 07/09/23 09:30 07/10/23 09:01 Enoxaparin Sodium 40 Mg/0.4 Ml Syr SUBCUT 40 mg DAILY MAHNAZ Administration Gabapentin 100 mg 07/08/23 19:57 Gabapentin 100 Mg Capsule PO QPM PRN muscle spasm Guaifenesin 600 mg 07/09/23 09:35 07/10/23 09:00 Guaifenesin 600 Mg Tablet.Er PO 600 mg Q12HR MAHNAZ Administration Ertapenem 1 gm/ Sodium 50 mls @ 100 mls/hr 07/10/23 09:00 07/10/23 09:23 Chloride IV 07/13/23 08:59 100 mls/hr DAILY MAHNAZ Administration Insulin Glargine 15 unit 07/09/23 09:00 07/10/23 09:01 Insulin Glargine,Hum.Rec.Anlog 100 Units/Ml SUBCUT 15 unit DAILY MAHNAZ Administration Insulin Human Lispro 0 unit 07/08/23 17:40 07/09/23 20:14 Insulin Lispro 100 Unit/Ml Vial SUBCUT 2 unit PRN PRN Administration Hyperglycemia Protocol Latanoprost 1 drop 07/08/23 21:00 07/09/23 20:04 Latanoprost 2.5 Ml Opth Billie EACHEYE 1 drop BEDTIME MAHNAZ Administration Mirtazapine 7.5 mg 07/09/23 17:00 07/09/23 17:37 Mirtazapine 15 Mg Tablet PO 7.5 mg QPM MAHNAZ Administration Oxybutynin Chloride 5 mg 07/08/23 20:31 07/10/23 09:00 Oxybutynin Chloride 5 Mg Tablet PO 5 mg DAILY MAHNAZ Administration Pravastatin Sodium 20 mg 07/08/23 21:00 07/09/23 20:44 Pravastatin Sodium 20 Mg Tablet PO 20 mg BEDTIME MAHNAZ Administration Sodium Chloride 1 syr 07/09/23 21:00 07/10/23 05:21 0.9% Sodium Chloride 10 Ml Disp.Syrin IVF 1 syr Q8HR MAHNAZ Administration Tramadol HCl 50 mg 07/08/23 21:00 07/10/23 09:00 Tramadol Hcl 50 Mg Tablet PO 50 mg TID MAHNAZ Administration Plan Plan: 1. Acute hypoxic respiratory failure in setting of pneumonia - Wean O2 when able, cont abx 2. Right lower lobe pneumonia, community acquired - MRSA neg, stop vanc. Change merrem to invanz. Legionella urine antigen, strep pneumo urine antigen pending. Trend wbc count and procal. 3. UTI with chronic conklin, most recently ESBL+ e coli - Urine culture showing strep uberis. Possible contaminant. Will change abx to invanz to cover pna, esbl + e coli (recent culture from ) and strep organisms. 4. Sepsis in setting of RLL PNA and UTI - Resolved. LA normal, pt received 2L of fluids, euvolemic currently and eating/drinking. 5. DMT2 - Cont long acting. Diabetic diet. Accuchecks qachs. Humalog sliding scale. 6. Hyperlipidemia - Cont home meds DVT Prophylaxis: Lovenox Review Statement Review Statement: I have personally discussed and reviewed the patient's visit/currently labs/imaging/decision making with Dr. Lopez, my supervising attending. Greater that 50 minutes spent with patient, 50% of the time spent with this patient was devoted to counseling and coordination of care.
[2023-07-10] MEDS: NEURONTIN PO PRN (20:32)
[2023-07-11 05:54] LABS: BASOPHILS % (AUTO) 0.4 % (0.0-3.0); EOSINOPHILS # (AUTO) 0.3 K/ul (0.0-0.7); EOSINOPHILS % (AUTO) 4.2 % (0.0-7.0); HEMATOCRIT 34.1 % (42.0-52.0); HEMOGLOBIN 10.7 g/dl (14.0-18.0); IMMATURE GRANULOCYTE % (AUTO) 0.3 % (0.0-5.0); LYMPHOCYTES # (AUTO) 1.9 K/uL (0.60-3.4); LYMPHOCYTES % (AUTO) 25.2 (10.0-50.0); MEAN CORPUSCULAR HEMOGLOBIN 30.1 pg (27.0-31.0); MEAN CORPUSCULAR HGB CONC 31.4 (31.8-35.4); MEAN CORPUSCULAR VOLUME 95.8 fl (80.0-94.0); MONOCYTES # (AUTO) 0.7 K/uL (0.4-2.0); MONOCYTES % (AUTO) 8.6 (0-10); NEUTROPHILS # (AUTO) 4.7 K/ul (2.0-6.9); NEUTROPHILS % (AUTO) 61.3 % (42.2-75.2); PLATELET COUNT 326 10^3/uL (140-440); RDW COEFFICIENT OF VARIATION 13.2 % (11.6-14.8); RED BLOOD COUNT 3.56 10^6/ul (4.70-6.10); WHITE BLOOD COUNT 7.58 K/ul (4.2-10.2)
[2023-07-11 06:14] LABS: ALANINE AMINOTRANSFERASE 24.5 U/L (0-50); ALBUMIN 3.12 g/dL (3.5-5.0); ALKALINE PHOSPHATASE 58.8 U/L (56-119); ASPARTATE AMINO TRANSFERASE 38.2 U/L (17-59); BILIRUBIN,TOTAL 0.93 mg/dL (0.2-1.3); CALCIUM 9.06 mg/dL (8.4-10.2); CARBON DIOXIDE 31.3 mmol/L (22-30.0); CHLORIDE 100.2 mmol/L (98-107); CREATININE 0.63 mg/dL (0.60-1.10); GLUCOSE 102.9 mg/dL (74-106); TOTAL PROTEIN 6.57 g/dL (6.3-8.2)
[2023-07-11 06:15] LABS: POTASSIUM 3.93 mmol/L (3.5-5.1)
--- NOTE | 2023-07-11 10:03 | RS.PTINEVL ---
Subjective Patient information Date of Evaluation: 07/11/23 Date of Arrival on Unit: 07/08/23 Admitted From:: Home Diagnosis: acute hypoxic resp failure, pneumonia, UTI, sepsis Usual Living Arrangement: Alone Living Arrangement Comments: pt lives alone; pt has helpers 2x a day, meals on wheels and son is supportive. 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 pt reports "I need 2 strong men to help me." Explained to pt that if 2 women could not safely help him then we would use a mechanical lift. pt agreed to try. pt is not open to PT suggestions regarding safety with transfers and gait. pt c/o feeling that the non skid socks slipped so advised pt to have family to bring in some shoes. Level of function Prior to this admission, the patient could do the following:: Independent Selfcare, Independent Ambulation and Participated in Social Activities Outside home Abilities prior to this admission: pt amb with rwx in home. Son assists with shower, paid caregivers and meals on wheels assist with meals. Current Level of Function: Partially Dependent Current Equipment Used at Home: rolling walker, shower chair Pain Assessement Location RLE: Description: Sharp and Aching Intensity: 5 Pain Behavior: Irritability and Facial Grimacing Pain Aggravating Factors: Changing Position, Standing and Walking Interventions Objective Patient Orientation: Person, Place, Time and Situation Current Interventions: IV's, Telemetry and Conklin Catheter Observation: pt with colostomy. pt with significant increased thoracic kyphosis, rounded shoulders, forward head Range of Motion ROM Right Upper Extremity AROM: WFL's Left Upper Extremity AROM: WFL's Right Lower Extremity AROM: WFL's Left Lower Extremity AROM: WFL's Muscle Strength Muscle Strength Right Upper Extremity: Mild Weakness (grossly 4/5) Left Upper Extremity: Mild Weakness (grossly 4/5) Right Lower Extremity: Mild Weakness (hip flex 4-/5, knee flex 4/5, ext 4/5, an kle DF/PF 4/5 ) Left Lower Extremity: Mild Weakness (hip flex 4-/5, knee flex 4/5, ext 4/5, ankle DF/PF 4/5 ) Sensation Sensation Right Upper Extremity: Intact/Normal Left Upper Extremity: Intact/Normal Right Lower Extremity: Impaired (radicular pain into RLE h/o neuropathy) Left Lower Extremity: Impaired (h/o neuropathy) Palpation Palpation Findings: Tenderness (to lumbar ) Balance Sitting Balance and Reactions Static Sitting Balance: Fair (fair+) Dynamic Sitting Balance: Fair Standing Balance and Reactions Static Standing Balance: Poor Dynamic Standing Balance: Poor Functional Mobility Bed Mobility Rolling R/L: CGA Supine to Sit: Supervision and CGA Sit to Supine: Min Assist and 1 person assist Transfers Sit to Stand: CGA Stand to Sit: CGA Safety Awareness Safety Awareness: Fair TRINA INDEX SCORE: n/a Ambulation Ambulation Assistive Device Used: Rolling Walker Orthotic/Prosthetic Device: No Distance: 35ft Assistance needed with Ambulation: CGA and 1 person assist Quality of Ambulation: pt amb with CGA to min x 1 +1(per pt request to have 2 people) Gait Deviations: Forward posture and Short stride Ambulation Comments: Encouraged pt to stand tall, pt states "they always say that." Explained to pt that flexed posture increases his difficulty walking and decreases balance. Repeated encouragement to stand tall and had pt stop and try and he did stand somewhat more erect however increased flex when resumed walking. Factors Affecting Ambulation: Decreased Balance, Pain, Weakness, Decreased Safety and Limited Endurance Treatment time Units charged Gait trainin Time with patient Length of Evaluation: 19 Total treatment time: 31 Patient Education Education Patient Education: Activity Modification and Education of Plan of Care Teaching Recipient: Patient Teaching Methods: Discussion Comments: discussion regarding POC and safety with transfers and gait. Assessment Assessment Problem List:: Decreased level of function, Requires training/education, Decreased safety/Risk of falls, Weakness and Pain limits previous level of function Rehab Potential: Fair Further Therapy Indicated?: Yes Candidate for Swing Bed for Therapy Services?: Feel pt may benefit from therapy in swing bed if pt is agreeable to participate. Evaluation Complexity: HISTORY: Medium, EXAM OF BODY SYSTEMS: Medium, CLINICAL PRESENTATION: Medium and CLINICAL DECISION MAKING: Medium Patient's Goal(s): Get stronger and go home. Short Term Goals GOAL #1: pt demonstrate rolling and scooting in bed independently. Goal to be met by: 07/13/23 GOAL #2: Transfer sup to/from sit SBA Goal to be met by: 07/13/23 GOAL #3: Tranfer sit to/from stand CGA Goal to be met by: 07/13/23 GOAL #4: pt amb with rwx 75ft with CGA with no LOB Goal to be met by: 07/13/23 GOAL #5: Improve BLE strength 4 to 4+/5 Goal to be met by: 07/13/23 Direct Care Staffer Goals GOAL #1: pt tranfers sup to/from sit to/from stand SBA to independent Goal to be met by: 07/16/23 GOAL #2: pt amb functional household distances with rwx with SBA Goal to be met by: 07/16/23 GOAL #3: pt ascend/descend ramp with rwx with CGA Goal to be met by: 07/16/23 Plan Plan of Care: Therapeutic EX and Therapeutic Activity Other:: gait training Frequency of Treatment: 1-2 X day, as tolerated Duration of Treatment: 5 days Anticipated Discharge Destination: Home (vs swing bed ) Treatment Diagnosis (ICD 10 Codes): difficulty walking R 26.2 impaired balance R 26.81 weakness M62.81 Has the Physician been added for Co-signature?: Yes
--- NOTE | 2023-07-11 10:46 | PCM.PROG ---
Date/Time Seen Date Seen by Provider: 07/11/23 Time Seen by Provider: 08:45 Provider Provider: MAE WEAVER, [facility]]ist Group Chief Complaint Chief Complaint: SEPSIS Subjective Subjective: Feeling some better today. Still feels weak. Would like to work with PT to determine safety going home. Objective Appearance: Positive No Apparent Distress, Alert and Oriented x3 and Thin Chest/Lungs: Positive Symmetrical With Equal Breath Sounds, Clear to Auscultation Bilaterally and Other (diminished) Heart: Positive RRR and Pulses Normal GI/: Positive Soft, Nontender, Bowel Sounds Normal, No Distention and Other ( colonostomy in place) Musculoskeletal: Positive Not Examined Neurological: Positive Sensation Intact, Motor intact, Reflexes Intact, Alert, Oriented and Other (generalized weakness) Vital Signs Vital Signs: Vital Signs: Last 24 Hours 07/10/23 13:00 07/10/23 14:00 07/10/23 14:00 Temperature 98.1 F Temperature Source Temporal Artery Scan Pulse Rate 82 Respiratory Rate 17 Blood Pressure 144/76 H Blood Pressure Mean 98 Blood Pressure Location Left Arm Blood Pressure Position Sitting O2 Sat by Pulse Oximetry 96 97 Oxygen Delivery Method Room Air Room Air Telemetry Type Remote Telemetry Telemetry Monitoring Continues Telemetry Heart Rate 79 Telemetry SPO2 94 EKG CO Interval 0.17 EKG QRS Interval 0.08 Telemetry Strip Reading NSR 07/10/23 18:00 07/10/23 19:00 07/10/23 19:36 Temperature 98.2 F Temperature Source Temporal Artery Scan Pulse Rate 77 Respiratory Rate 16 Blood Pressure 137/81 Blood Pressure Mean 99 Blood Pressure Location Left Arm Blood Pressure Position Sitting O2 Sat by Pulse Oximetry 96 92 L Oxygen Delivery Method Room Air Room Air Telemetry Type Remote Telemetry Telemetry Monitoring Continues Telemetry Heart Rate 79 Telemetry SPO2 92 L EKG CO Interval 0.17 EKG QRS Interval 0.06 Telemetry Strip Reading sr 07/10/23 20:00 07/10/23 21:22 07/11/23 01:00 Temperature 97.9 F Temperature Source Temporal Artery Scan Pulse Rate 81 Respiratory Rate 18 Blood Pressure 133/68 Blood Pressure Mean 89 Blood Pressure Location Left Arm Blood Pressure Position Supine O2 Sat by Pulse Oximetry 93 L Oxygen Delivery Method Room Air Room Air Telemetry Type Remote Telemetry Telemetry Monitoring Continues Telemetry Heart Rate 69 Telemetry SPO2 93 EKG CO Interval 0.20 EKG QRS Interval 0.06 Telemetry Strip Reading SR 07/11/23 01:43 07/11/23 05:07 07/11/23 05:19 Temperature 97.2 F L Temperature Source Temporal Artery Scan Pulse Rate 68 76 Respiratory Rate 18 16 Blood Pressure 110/58 L Blood Pressure Mean 75 Blood Pressure Location Left Arm Blood Pressure Position Supine O2 Sat by Pulse Oximetry 94 L 93 L 96 Oxygen Delivery Method Room Air Room Air Room Air Telemetry Type Telemetry Monitoring Telemetry Heart Rate Telemetry SPO2 EKG CO Interval EKG QRS Interval Telemetry Strip Reading 07/11/23 07:00 07/11/23 09:30 Temperature 97.9 F Temperature Source Oral Pulse Rate 80 Respiratory Rate 18 Blood Pressure 134/75 Blood Pressure Mean 94 Blood Pressure Location Left Arm Blood Pressure Position Sitting O2 Sat by Pulse Oximetry 94 L Oxygen Delivery Method Room Air Telemetry Type Remote Telemetry Telemetry Monitoring Continues Telemetry Heart Rate 70 Telemetry SPO2 93 EKG CO Interval 0.20 EKG QRS Interval 0.04 L Telemetry Strip Reading SR Lab Results Lab Results: Lab Results: Last 24 Hours 07/11/23 07/08/23 05:50 22:36 WBC 7.58 RBC 3.56 L Hgb 10.7 L Hct 34.1 L MCV 95.8 H MCH 30.1 MCHC 31.4 L RDW Coeff of Pat 13.2 Plt Count 326 Immature Gran % (Auto) 0.3 Neut % (Auto) 61.3 Lymph % (Auto) 25.2 [place] % (Auto) 8.6 Eos % (Auto) 4.2 Baso % (Auto) 0.4 Neut # (Auto) 4.7 Lymph # (Auto) 1.9 [place] # (Auto) 0.7 Eos # (Auto) 0.3 Baso # (Auto) 0.0 Immature Gran # (Auto) 0.0 Sodium 133.0 L Potassium 3.93 Chloride 100.2 Carbon Dioxide 31.3 H Anion Gap 5.43 BUN 19.0 Creatinine 0.63 Estimated GFR (MDRD) 120.00 BUN/Creatinine Ratio 30.15 Glucose 102.9 Calcium 9.06 Total Bilirubin 0.93 AST 38.2 ALT 24.5 Alkaline Phosphatase 58.8 Total Protein 6.57 Albumin 3.12 L Globulin 3.45 Albumin/Globulin Ratio 0.90 Procalcitonin 0.10 H Miscellaneous Test Sent to [facility] Additional Comments Additional Comments: I have independently reviewed and interpreted the labs/EKGs/imaging ordered during this hospital stay. I have reviewed outside records that are available in our EMR that pertain to medical stay including imaging/notes/labs from previous visits. Active Medications Active Medications: Medications Generic Name Dose Route Start Last Admin Trade Name Freq PRN Reason Stop Dose Admin Hydrocodone Bitart/Acetaminophen 1 tab 07/08/23 18:54 07/10/23 12:19 Hydrocodone Bit/Acetaminophen 7.5/325 Mg Tablet PO 1 tab BID PRN Administration Pain Albuterol/Ipratropium 3 ml 07/08/23 18:00 07/11/23 05:12 Ipratropium/Albuterol Vial.Neb NEB 3 ml RTQ6H MAHNAZ Administration Dorzolamide/Timolol 1 drop 07/09/23 09:00 07/11/23 09:42 Dorzolamide Hcl/Timolol Maleat Opth 10 Ml Billie EACHEYE 1 drop BID MAHNAZ Administration Enoxaparin Sodium 40 mg 07/09/23 09:30 07/11/23 09:32 Enoxaparin Sodium 40 Mg/0.4 Ml Syr SUBCUT 40 mg DAILY MAHNAZ Administration Gabapentin 100 mg 07/08/23 19:57 07/10/23 20:32 Gabapentin 100 Mg Capsule PO 100 mg QPM PRN Administration muscle spasm Guaifenesin 600 mg 07/09/23 09:35 07/11/23 09:40 Guaifenesin 600 Mg Tablet.Er PO 600 mg Q12HR MAHNAZ Administration Ertapenem 1 gm/ Sodium 50 mls @ 100 mls/hr 07/10/23 09:00 07/11/23 09:42 Chloride IV 07/13/23 08:59 100 mls/hr DAILY MAHNAZ Administration Insulin Glargine 15 unit 07/09/23 09:00 07/11/23 09:41 Insulin Glargine,Hum.Rec.Anlog 100 Units/Ml SUBCUT 15 unit DAILY MAHNAZ Administration Insulin Human Lispro 0 unit 07/08/23 17:40 07/09/23 20:14 Insulin Lispro 100 Unit/Ml Vial SUBCUT 2 unit PRN PRN Administration Hyperglycemia Protocol Latanoprost 1 drop 07/08/23 21:00 07/10/23 20:32 Latanoprost 2.5 Ml Opth Billie EACHEYE 1 drop BEDTIME MAHNAZ Administration Mirtazapine 7.5 mg 07/09/23 17:00 07/10/23 16:10 Mirtazapine 15 Mg Tablet PO 7.5 mg QPM MAHNAZ Administration Oxybutynin Chloride 5 mg 07/08/23 20:31 07/11/23 09:40 Oxybutynin Chloride 5 Mg Tablet PO 5 mg DAILY MAHNAZ Administration Pravastatin Sodium 20 mg 07/08/23 21:00 07/10/23 20:32 Pravastatin Sodium 20 Mg Tablet PO 20 mg BEDTIME MAHNAZ Administration Sodium Chloride 1 syr 07/09/23 21:00 07/11/23 05:26 0.9% Sodium Chloride 10 Ml Disp.Syrin IVF 1 syr Q8HR MAHNAZ Administration Tramadol HCl 50 mg 07/08/23 21:00 07/11/23 09:40 Tramadol Hcl 50 Mg Tablet PO 50 mg TID MAHNAZ Administration Plan Plan: 1. Acute hypoxic respiratory failure in setting of pneumonia - Resolved, off oxygen, cont abx 2. Right lower lobe pneumonia, community acquired - MRSA neg, stop vanc. Change merrem to invanz. Legionella urine antigen, strep pneumo urine antigen pending. Trend wbc count and procal. 3. UTI with chronic conklin, most recently ESBL+ e coli - Urine culture showing strep uberis. Possible contaminant. Will change abx to invanz to cover pna, esbl + e coli (recent culture from ) and strep organisms. 4. Sepsis in setting of RLL PNA and UTI - LA normal, pt received 2L of fluids, euvolemic currently and eating/drinking, blood cultures not completed by ER, ordered today to ensure appropriate treatment 5. DMT2 - Cont long acting. Diabetic diet. Accuchecks qachs. Humalog sliding scale. 6. Hyperlipidemia - Cont home meds 7. Weakness d/t above - PT/OT to eval and treat DVT Prophylaxis: Lovenox Review Statement Review Statement: I have personally discussed and reviewed the patient's visit/currently labs/imaging/decision making with Dr. Lopez, my supervising attending. Greater that 50 minutes spent with patient, 50% of the time spent with this patient was devoted to counseling and coordination of care.
--- NOTE | 2023-07-11 14:04 | RS.OTINEVL ---
Subjective Patient information Date of Evaluation: 07/11/23 Date of Arrival on Unit: 07/08/23 Admitted From:: Home Diagnosis: Abscessed Perianal, scrotum swelling PRECAUTIONS: Difficulty standing and functional mobility due to pain. Usual Living Arrangement: Alone Living Arrangement Comments: pt lives alone; pt has helpers 2x a day, meals on wheels and son is supportive. 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 I don't walk much." "I did walk to the clarke." Level of function Prior to this admission, the patient could do the following:: Independent Selfcare, Independent Ambulation and Participated in Social Activities Outside home Abilities prior to this admission: Pt living in [facility]. Pt completed ADLs independently and ambulated with RW. Current Level of Function: Partially Dependent Current Equipment Used at Home: rolling walker, shower chair Pain Assessment Pain Pain Score: 5 Side: right Pain Location Body Site: Heidi area and right leg Pain Aggravating Factors: Changing Position and Sitting Pain Alleviating Factors: Medication, Position Change and Standing Interventions Objective Patient Orientation: Person Current Interventions: IV's and Conklin Catheter Observation: Pt has a colostomy bag and a conklin catheter. Pt reports his right leg and bottom are hurting 4-5/10. Pt has full AROM of the BUE. Pt has weakness of BUE. Pt is weak during functional transfers. Interventions ROM Right Upper Extremity AROM: WFL's Left Upper Extremity AROM: WFL's Strength Right Upper Extremity: Mild Weakness Left Upper Extremity: Mild Weakness Sensation Right Upper Extremity: Intact/Normal Left Upper Extremity: Intact/Normal Comments:: Pt has neuropathy. Balance Sitting Balance Static Sitting Balance: Good Dynamic Sitting Balance: Good Standing Balance Static Standing Balance: Fair Dynamic Standing Balance: Fair ADL Skills Self Feeding Self Feeding: Set Up Only Grooming Grooming: Set Up Only Grooming Set-up: Sitting Bathing Bathing UE: Independent Bathing LE: Min Assist Bathing Set-up: Shower Comments:: Pt requires 2 people because he thinks that it takes 2 to move him. Dressing Dressing UE: Independent Dressing LE: Min Assist Toilet Management Toilet Hygiene: Max Assist Toilet Clothing Management: Mod Assist Comments Comments:: Pt requires assistance with colostomy bag. Functional Mobility Bed Mobility Rolling R/L: Independent Scooting: Min Assist Sit to Supine: Min Assist Comments:: Requires Min assistance with getting legs into the bed. Transfers Sit to Stand: CGA and 2 person assist Stand to Sit: CGA and 2 person assist Stand Pivot Transfers: CGA and 2 person assist Ambulation Weight Bearing Status: FWB Assistive Device Used: Rolling Walker Assistance needed with Ambulation: CGA and 2 person assist Safety Awareness Safety Awareness: Fair TRINA INDEX SCORE: . Additional Treatment Performed Additional units charged ADL: 12 Time with patient Length of Evaluation: 17 Total treatment time: 29 Activities Do you enjoy playing games?: Yes Would you be interested in leaving your room for activities?: Yes Would you enjoy group activities?: No Do you have difficulty with your vision?: Yes Patient Interests:: Watching Television and Visiting/Socializing Patient Education Patient Education: Education of diagnosis, Home Safety and Education of Plan of Care Teaching Recipient: Patient Teaching Methods: Discussion and Demonstration Assessment Problem List:: Decreased level of function, Requires training/education, Decreased safety/Risk of falls and Weakness Rehab Potential: Fair Further Therapy Indicated?: Yes Evaluation Complexity: HISTORY: Medium, EXAM OF BODY SYSTEMS: Medium and CLINICAL DECISION MAKING: Medium Patient's Goal(s): To be able to go home. Short Term Goals Goals GOAL 1: Pt to be able to complete grooming at the sink with CGA. Goal to be met by: 07/14/23 GOAL 2: Pt to increase BUE strength to 4+/5. Goal to be met by: 07/14/23 GOAL 3: Pt to increase dyn. std. bal. to F+. Goal to be met by: 07/14/23 [facility] Goals GOAL 1: Pt to increase BUE strength to 5/5. Goal to be met by: 07/18/23 GOAL 2: Pt to increase dyn. std. bal. to G-. Goal to be met by: 07/18/23 GOAL 3: Pt to be I with ADLs. Goal to be met by: 07/18/23 Plan Plan of Care: Therapeutic EX, Neuromuscular Re-Educ, Therapeutic Activity and Self-Care/Home Management Frequency of Treatment: 1-2 X day, as tolerated Duration of Treatment: 1 Week Anticipated Discharge Destination: Assisted Living Facility Treatment Diagnosis (ICD 10 Codes): Weakness R53.1, Z74.1 need for assistance with personal care. Has the Physician been added for Co-signature?: Yes
[2023-07-12 05:11] LABS: BASOPHILS % (AUTO) 0.5 % (0.0-3.0); EOSINOPHILS # (AUTO) 0.3 K/ul (0.0-0.7); EOSINOPHILS % (AUTO) 4.1 % (0.0-7.0); HEMATOCRIT 32.6 % (42.0-52.0); HEMOGLOBIN 10.6 g/dl (14.0-18.0); IMMATURE GRANULOCYTE % (AUTO) 0.2 % (0.0-5.0); LYMPHOCYTES # (AUTO) 1.6 K/uL (0.60-3.4); LYMPHOCYTES % (AUTO) 19.7 (10.0-50.0); MEAN CORPUSCULAR HEMOGLOBIN 30.4 pg (27.0-31.0); MEAN CORPUSCULAR HGB CONC 32.5 (31.8-35.4); MEAN CORPUSCULAR VOLUME 93.4 fl (80.0-94.0); MONOCYTES # (AUTO) 0.8 K/uL (0.4-2.0); MONOCYTES % (AUTO) 9.5 (0-10); NEUTROPHILS # (AUTO) 5.4 K/ul (2.0-6.9); PLATELET COUNT 344 10^3/uL (140-440); RED BLOOD COUNT 3.49 10^6/ul (4.70-6.10); WHITE BLOOD COUNT 8.12 K/ul (4.2-10.2)
[2023-07-12 05:26] LABS: ALANINE AMINOTRANSFERASE 28.1 U/L (0-50); ALBUMIN 3.14 g/dL (3.5-5.0); ALKALINE PHOSPHATASE 61.3 U/L (56-119); ASPARTATE AMINO TRANSFERASE 50.2 U/L (17-59); BILIRUBIN,TOTAL 1.11 mg/dL (0.2-1.3); BLOOD UREA NITROGEN 17.9 mg/dL (9-20); CALCIUM 9.06 mg/dL (8.4-10.2); CARBON DIOXIDE 31.3 mmol/L (22-30.0); CHLORIDE 97.8 mmol/L (98-107); CREATININE 0.58 mg/dL (0.60-1.10); GLUCOSE 122.1 mg/dL (74-106); POTASSIUM 3.48 mmol/L (3.5-5.1); SODIUM 131.3 mmol/L (134.5-145); TOTAL PROTEIN 6.57 g/dL (6.3-8.2)
[2023-07-12] MEDS: K-DUR PO ONE (08:20)
--- NOTE | 2023-07-12 10:57 | PCM.PROG ---
Date/Time Seen Date Seen by Provider: 07/12/23 Time Seen by Provider: 08:30 Provider Provider: MAE WEAVER, [facility] Chief Complaint Chief Complaint: SEPSIS Subjective Subjective: Feeling better at this time. No fever. Still off oxygen. Objective Appearance: Positive No Apparent Distress, Alert and Oriented x3, Ill-Appearing and Thin Chest/Lungs: Positive Symmetrical With Equal Breath Sounds and Clear to Auscultation Bilaterally Heart: Positive RRR and Pulses Normal GI/: Positive Soft, Nontender, Bowel Sounds Normal and No Distention Musculoskeletal: Positive Not Examined Neurological: Positive Sensation Intact, Motor intact, Reflexes Intact, Alert and Oriented Vital Signs Vital Signs: Vital Signs: Last 24 Hours 07/11/23 11:55 07/11/23 12:43 07/11/23 14:00 Temperature 98.3 F Temperature Source Oral Pulse Rate 70 Respiratory Rate 16 Blood Pressure 154/83 H Blood Pressure Mean 106 Blood Pressure Location Left Arm Blood Pressure Position Sitting O2 Sat by Pulse Oximetry 98 Oxygen Delivery Method Room Air Weight 162 lb 3 oz Telemetry Type Remote Telemetry Telemetry Monitoring Continues Telemetry Heart Rate 75 Telemetry SPO2 99 EKG MD Interval 0.20 EKG QRS Interval 0.08 Telemetry Strip Reading SR 07/11/23 14:12 07/11/23 17:42 07/11/23 19:00 Temperature 98 F Temperature Source Temporal Artery Scan Pulse Rate 68 Respiratory Rate 16 Blood Pressure 146/95 H Blood Pressure Mean 112 Blood Pressure Location Left Arm Blood Pressure Position Supine O2 Sat by Pulse Oximetry 97 97 Oxygen Delivery Method Room Air Room Air Weight Telemetry Type Remote Telemetry Telemetry Monitoring Continues Telemetry Heart Rate 76 Telemetry SPO2 94 EKG MD Interval 0.23 H EKG QRS Interval 0.05 L Telemetry Strip Reading SR WITH 1ST DEGREE AVB 07/11/23 19:53 07/11/23 20:00 07/11/23 20:32 Temperature 98.4 F Temperature Source Temporal Artery Scan Pulse Rate 66 Respiratory Rate 18 Blood Pressure 159/85 H Blood Pressure Mean 109 Blood Pressure Location Left Arm Blood Pressure Position O2 Sat by Pulse Oximetry 94 L 95 Oxygen Delivery Method Room Air Room Air Room Air Weight Telemetry Type Telemetry Monitoring Telemetry Heart Rate Telemetry SPO2 EKG MD Interval EKG QRS Interval Telemetry Strip Reading 07/12/23 01:00 07/12/23 02:00 07/12/23 04:52 Temperature 98.1 F Temperature Source Temporal Artery Scan Pulse Rate 79 Respiratory Rate 20 Blood Pressure 141/82 H Blood Pressure Mean 101 Blood Pressure Location Left Arm Blood Pressure Position Supine O2 Sat by Pulse Oximetry 98 92 L Oxygen Delivery Method Room Air Room Air Weight Telemetry Type Remote Telemetry Telemetry Monitoring Continues Telemetry Heart Rate 86 Telemetry SPO2 EKG MD Interval 0.18 EKG QRS Interval 0.08 Telemetry Strip Reading SR 07/12/23 05:34 07/12/23 06:58 07/12/23 08:00 Temperature 97.9 F Temperature Source Tympanic Pulse Rate 84 Respiratory Rate 21 H Blood Pressure 125/68 Blood Pressure Mean 87 Blood Pressure Location Right Arm Blood Pressure Position Supine O2 Sat by Pulse Oximetry 96 Oxygen Delivery Method Room Air Room Air Weight Telemetry Type Remote Telemetry Telemetry Monitoring Continues Telemetry Heart Rate 81 Telemetry SPO2 EKG MD Interval 0.19 EKG QRS Interval 0.06 Telemetry Strip Reading SR 07/12/23 10:00 Temperature 97.7 F Temperature Source Temporal Artery Scan Pulse Rate 79 Respiratory Rate 16 Blood Pressure 122/54 L Blood Pressure Mean 76 Blood Pressure Location Left Arm Blood Pressure Position O2 Sat by Pulse Oximetry 96 Oxygen Delivery Method Room Air Weight Telemetry Type Telemetry Monitoring Telemetry Heart Rate Telemetry SPO2 EKG MD Interval EKG QRS Interval Telemetry Strip Reading Lab Results Lab Results: Lab Results: Last 24 Hours 07/12/23 05:05 WBC 8.12 RBC 3.49 L Hgb 10.6 L Hct 32.6 L MCV 93.4 MCH 30.4 MCHC 32.5 RDW Coeff of Pat 13.0 Plt Count 344 Immature Gran % (Auto) 0.2 Neut % (Auto) 66.0 Lymph % (Auto) 19.7 [place] % (Auto) 9.5 Eos % (Auto) 4.1 Baso % (Auto) 0.5 Neut # (Auto) 5.4 Lymph # (Auto) 1.6 [place] # (Auto) 0.8 Eos # (Auto) 0.3 Baso # (Auto) 0.0 Immature Gran # (Auto) 0.0 Sodium 131.3 L Potassium 3.48 L Chloride 97.8 L Carbon Dioxide 31.3 H Anion Gap 5.68 BUN 17.9 Creatinine 0.58 L Estimated GFR (MDRD) 133.00 BUN/Creatinine Ratio 30.86 Glucose 122.1 H Calcium 9.06 Total Bilirubin 1.11 AST 50.2 ALT 28.1 Alkaline Phosphatase 61.3 Total Protein 6.57 Albumin 3.14 L Globulin 3.43 Albumin/Globulin Ratio 0.91 Additional Comments Additional Comments: I have independently reviewed and interpreted the labs/EKGs/imaging ordered during this hospital stay. I have reviewed outside records that are available in our EMR that pertain to medical stay including imaging/notes/labs from previous visits. Active Medications Active Medications: Medications Generic Name Dose Route Start Last Admin Trade Name Freq PRN Reason Stop Dose Admin Hydrocodone Bitart/Acetaminophen 1 tab 07/08/23 18:54 07/12/23 10:15 Hydrocodone Bit/Acetaminophen 7.5/325 Mg Tablet PO 1 tab BID PRN Administration Pain Albuterol/Ipratropium 3 ml 07/08/23 18:00 07/12/23 04:52 Ipratropium/Albuterol Vial.Neb NEB 3 ml RTQ6H MAHNAZ Administration Dorzolamide/Timolol 1 drop 07/09/23 09:00 07/12/23 08:04 Dorzolamide Hcl/Timolol Maleat Opth 10 Ml Billie EACHEYE 1 drop BID MAHNAZ Administration Enoxaparin Sodium 40 mg 07/09/23 09:30 07/12/23 08:05 Enoxaparin Sodium 40 Mg/0.4 Ml Syr SUBCUT 40 mg DAILY MAHNAZ Administration Gabapentin 100 mg 07/08/23 19:57 07/10/23 20:32 Gabapentin 100 Mg Capsule PO 100 mg QPM PRN Administration muscle spasm Guaifenesin 600 mg 07/09/23 09:35 07/12/23 08:04 Guaifenesin 600 Mg Tablet.Er PO 600 mg Q12HR MAHNAZ Administration Ertapenem 1 gm/ Sodium 50 mls @ 100 mls/hr 07/10/23 09:00 07/12/23 08:05 Chloride IV 07/13/23 08:59 100 mls/hr DAILY MAHNAZ Administration Insulin Glargine 15 unit 07/09/23 09:00 07/12/23 08:07 Insulin Glargine,Hum.Rec.Anlog 100 Units/Ml SUBCUT 15 unit DAILY MAHNAZ Administration Insulin Human Lispro 0 unit 07/08/23 17:40 07/09/23 20:14 Insulin Lispro 100 Unit/Ml Vial SUBCUT 2 unit PRN PRN Administration Hyperglycemia Protocol Latanoprost 1 drop 07/08/23 21:00 07/11/23 20:27 Latanoprost 2.5 Ml Opth Billie EACHEYE 1 drop BEDTIME MAHNAZ Administration Mirtazapine 7.5 mg 07/09/23 17:00 07/11/23 18:18 Mirtazapine 15 Mg Tablet PO 7.5 mg QPM MAHNAZ Administration Oxybutynin Chloride 5 mg 07/08/23 20:31 07/12/23 08:04 Oxybutynin Chloride 5 Mg Tablet PO 5 mg DAILY MAHNAZ Administration Pravastatin Sodium 20 mg 07/08/23 21:00 07/11/23 20:27 Pravastatin Sodium 20 Mg Tablet PO 20 mg BEDTIME MAHNAZ Administration Sodium Chloride 1 syr 07/09/23 21:00 07/12/23 05:06 0.9% Sodium Chloride 10 Ml Disp.Syrin IVF 1 syr Q8HR MAHNAZ Administration Tramadol HCl 50 mg 07/08/23 21:00 07/12/23 08:04 Tramadol Hcl 50 Mg Tablet PO 50 mg TID MAHNAZ Administration Plan Plan: 1. Acute hypoxic respiratory failure in setting of pneumonia - Resolved, off oxygen, cont abx 2. Right lower lobe pneumonia, community acquired - MRSA neg, stop vanc. invanz. Legionella urine antigen, strep pneumo urine antigen pending. Trend wbc count and procal. 3. UTI with chronic conklin, most recently ESBL+ e coli - Urine culture showing strep uberis. Possible contaminant. invanz to cover pna, esbl + e coli (recent culture from ) and strep organisms. 4. Sepsis in setting of RLL PNA and UTI - Resolved. LA normal, pt received 2L of fluids, euvolemic currently and eating/drinking, blood cultures drawn and negative x 1 day 5. DMT2 - Cont long acting. Diabetic diet. Accuchecks qachs. Humalog sliding scale. 6. Hyperlipidemia - Cont home meds 7. Weakness d/t above - PT/OT to eval and treat, patient would benefit from continued services of home health PT/OT/NURSING due to continued weakness and chronic conditions upon discharge DVT Prophylaxis: Lovenox Dispo: Due to organism in urine, would like for patient to receive 7 days of antibiotics. Currently on day 5. He is unable to come in for outpatient administration or complete home administration. Plan to d/c on 07/13 Review Statement Review Statement: I have personally discussed and reviewed the patient's visit/currently la bs/imaging/decision making with Dr. Lopez, my supervising attending. Greater that 50 minutes spent with patient, 50% of the time spent with this patient was devoted to counseling and coordination of care.
[2023-07-13 05:29] LABS: BASOPHILS # (AUTO) 0.1 K/uL (0-0.2); BASOPHILS % (AUTO) 0.6 % (0.0-3.0); EOSINOPHILS # (AUTO) 0.4 K/ul (0.0-0.7); EOSINOPHILS % (AUTO) 3.9 % (0.0-7.0); HEMATOCRIT 35.3 % (42.0-52.0); HEMOGLOBIN 11.2 g/dl (14.0-18.0); IMMATURE GRANULOCYTE % (AUTO) 0.3 % (0.0-5.0); LYMPHOCYTES # (AUTO) 1.7 K/uL (0.60-3.4); LYMPHOCYTES % (AUTO) 18.2 (10.0-50.0); MEAN CORPUSCULAR HEMOGLOBIN 29.9 pg (27.0-31.0); MEAN CORPUSCULAR HGB CONC 31.7 (31.8-35.4); MEAN CORPUSCULAR VOLUME 94.1 fl (80.0-94.0); MONOCYTES # (AUTO) 0.8 K/uL (0.4-2.0); MONOCYTES % (AUTO) 8.3 (0-10); NEUTROPHILS # (AUTO) 6.3 K/ul (2.0-6.9); NEUTROPHILS % (AUTO) 68.7 % (42.2-75.2); PLATELET COUNT 360 10^3/uL (140-440); RDW COEFFICIENT OF VARIATION 13.1 % (11.6-14.8); RED BLOOD COUNT 3.75 10^6/ul (4.70-6.10); WHITE BLOOD COUNT 9.08 K/ul (4.2-10.2)
[2023-07-13 05:47] LABS: ALANINE AMINOTRANSFERASE 30.3 U/L (0-50); ALBUMIN 3.46 g/dL (3.5-5.0); ALKALINE PHOSPHATASE 74.1 U/L (56-119); ASPARTATE AMINO TRANSFERASE 49.3 U/L (17-59); BILIRUBIN,TOTAL 1.06 mg/dL (0.2-1.3); BLOOD UREA NITROGEN 19.7 mg/dL (9-20); CALCIUM 9.4 mg/dL (8.4-10.2); CARBON DIOXIDE 28.7 mmol/L (22-30.0); CHLORIDE 98.3 mmol/L (98-107); CREATININE 0.59 mg/dL (0.60-1.10); GLUCOSE 120.3 mg/dL (74-106); POTASSIUM 3.77 mmol/L (3.5-5.1); SODIUM 132.4 mmol/L (134.5-145); TOTAL PROTEIN 7.08 g/dL (6.3-8.2)
--- NOTE | 2023-07-13 09:57 | PCM.PROG ---
Date/Time Seen Date Seen by Provider: 07/13/23 Time Seen by Provider: 08:30 Provider Provider: MAE WEAVER, [facility] Chief Complaint Chief Complaint: SEPSIS Subjective Subjective: Feeling better. Excited to go home tomorrow. Objective Appearance: Positive No Apparent Distress and Alert and Oriented x3 Chest/Lungs: Positive Symmetrical With Equal Breath Sounds, Clear to Auscultation Bilaterally and Good Air Movement all 4 Lung [place] Heart: Positive RRR and Pulses Normal GI/: Positive Soft, Nontender, Bowel Sounds Normal and No Distention Musculoskeletal: Positive Not Examined Neurological: Positive Sensation Intact, Motor intact, Reflexes Intact, Alert and Oriented Vital Signs Vital Signs: Vital Signs: Last 24 Hours 07/12/23 10:00 07/12/23 11:21 07/12/23 13:00 Temperature 97.7 F Temperature Source Temporal Artery Scan Pulse Rate 79 Respiratory Rate 16 Blood Pressure 122/54 L Blood Pressure Mean 76 Blood Pressure Location Left Arm Blood Pressure Position O2 Sat by Pulse Oximetry 96 96 Oxygen Delivery Method Room Air Room Air Telemetry Type Remote Telemetry Telemetry Monitoring Continues Telemetry Heart Rate 73 EKG [place] Interval 0.14 EKG QRS Interval 0.08 Telemetry Strip Reading SR 07/12/23 14:00 07/12/23 14:25 07/12/23 18:00 Temperature 97.2 F L 98.3 F Temperature Source Temporal Artery Scan Temporal Artery Scan Pulse Rate 74 96 Respiratory Rate 18 18 Blood Pressure 122/71 150/77 H Blood Pressure Mean 88 101 Blood Pressure Location Left Arm Left Arm Blood Pressure Position Supine Sitting O2 Sat by Pulse Oximetry 95 95 95 Oxygen Delivery Method Room Air Room Air Room Air Telemetry Type Telemetry Monitoring Telemetry Heart Rate EKG [place] Interval EKG QRS Interval Telemetry Strip Reading 07/12/23 19:00 07/12/23 20:00 07/12/23 20:00 Temperature Temperature Source Pulse Rate Respiratory Rate Blood Pressure Blood Pressure Mean Blood Pressure Location Blood Pressure Position O2 Sat by Pulse Oximetry Oxygen Delivery Method Room Air Room Air Telemetry Type Remote Telemetry Telemetry Monitoring Continues Telemetry Heart Rate 84 EKG [place] Interval 0.18 EKG QRS Interval 0.06 Telemetry Strip Reading NSR 07/12/23 20:37 07/13/23 01:00 07/13/23 05:03 Temperature 98.7 F Temperature Source Temporal Artery Scan Pulse Rate 82 Respiratory Rate 19 Blood Pressure 146/72 H Blood Pressure Mean 96 Blood Pressure Location Left Arm Blood Pressure Position Supine O2 Sat by Pulse Oximetry 95 92 L Oxygen Delivery Method Room Air Room Air Telemetry Type Remote Telemetry Telemetry Monitoring Continues Telemetry Heart Rate 76 EKG [place] Interval 0.17 EKG QRS Interval 0.09 Telemetry Strip Reading SR 07/13/23 05:24 07/13/23 07:00 Temperature 97.6 F Temperature Source Temporal Artery Scan Pulse Rate 85 Respiratory Rate 18 Blood Pressure 127/66 Blood Pressure Mean 86 Blood Pressure Location Right Arm Blood Pressure Position Supine O2 Sat by Pulse Oximetry 95 Oxygen Delivery Method Room Air Telemetry Type Remote Telemetry Telemetry Monitoring Continues Telemetry Heart Rate 83 EKG [place] Interval 0.17 EKG QRS Interval 0.10 Telemetry Strip Reading NSR Lab Results Lab Results: Lab Results: Last 24 Hours 07/13/23 07/08/23 05:23 22:36 WBC 9.08 RBC 3.75 L Hgb 11.2 L Hct 35.3 L MCV 94.1 H MCH 29.9 MCHC 31.7 L RDW Coeff of Pat 13.1 Plt Count 360 Immature Gran % (Auto) 0.3 Neut % (Auto) 68.7 Lymph % (Auto) 18.2 [place] % (Auto) 8.3 Eos % (Auto) 3.9 Baso % (Auto) 0.6 Neut # (Auto) 6.3 Lymph # (Auto) 1.7 [place] # (Auto) 0.8 Eos # (Auto) 0.4 Baso # (Auto) 0.1 Immature Gran # (Auto) 0.0 Sodium 132.4 L Potassium 3.77 Chloride 98.3 Carbon Dioxide 28.7 Anion Gap 9.17 BUN 19.7 Creatinine 0.59 L Estimated GFR (MDRD) 130.00 BUN/Creatinine Ratio 33.38 Glucose 120.3 H Calcium 9.40 Total Bilirubin 1.06 AST 49.3 ALT 30.3 Alkaline Phosphatase 74.1 Total Protein 7.08 Albumin 3.46 L Globulin 3.62 Albumin/Globulin Ratio 0.95 Urine Legionella Ag Negative Additional Comments Additional Comments: I have independently reviewed and interpreted the labs/EKGs/imaging ordered during this hospital stay. I have reviewed outside records that are available in our EMR that pertain to medical stay including imaging/notes/labs from previous visits. Active Medications Active Medications: Medications Generic Name Dose Route Start Last Admin Trade Name Freq PRN Reason Stop Dose Admin Hydrocodone Bitart/Acetaminophen 1 tab 07/08/23 18:54 07/13/23 01:41 Hydrocodone Bit/Acetaminophen 7.5/325 Mg Tablet PO 1 tab BID PRN Administration Pain Albuterol/Ipratropium 3 ml 07/08/23 18:00 07/13/23 05:05 Ipratropium/Albuterol Vial.Neb NEB 3 ml RTQ6H MAHNAZ Administration Dorzolamide/Timolol 1 drop 07/09/23 09:00 07/13/23 08:08 Dorzolamide Hcl/Timolol Maleat Opth 10 Ml Billie EACHEYE 1 drop BID MAHNAZ Administration Enoxaparin Sodium 40 mg 07/09/23 09:30 07/13/23 08:10 Enoxaparin Sodium 40 Mg/0.4 Ml Syr SUBCUT 40 mg DAILY MAHNAZ Administration Gabapentin 100 mg 07/08/23 19:57 07/10/23 20:32 Gabapentin 100 Mg Capsule PO 100 mg QPM PRN Administration muscle spasm Guaifenesin 600 mg 07/09/23 09:35 07/13/23 08:09 Guaifenesin 600 Mg Tablet.Er PO 600 mg Q12HR MAHNAZ Administration Ertapenem 1 gm/ Sodium 50 mls @ 100 mls/hr 07/10/23 09:00 07/13/23 08:10 Chloride IV 07/14/23 10:00 100 mls/hr DAILY MAHNAZ Administration Insulin Glargine 15 unit 07/09/23 09:00 07/13/23 08:09 Insulin Glargine,Hum.Rec.Anlog 100 Units/Ml SUBCUT 15 unit DAILY MAHNAZ Administration Insulin Human Lispro 0 unit 07/08/23 17:40 07/09/23 20:14 Insulin Lispro 100 Unit/Ml Vial SUBCUT 2 unit PRN PRN Administration Hyperglycemia Protocol Latanoprost 1 drop 07/08/23 21:00 07/12/23 20:29 Latanoprost 2.5 Ml Opth Billie EACHEYE 1 drop BEDTIME MAHNAZ Administration Mirtazapine 7.5 mg 07/09/23 17:00 07/12/23 16:10 Mirtazapine 15 Mg Tablet PO 7.5 mg QPM MAHNAZ Administration Oxybutynin Chloride 5 mg 07/08/23 20:31 07/13/23 08:08 Oxybutynin Chloride 5 Mg Tablet PO 5 mg DAILY MAHNAZ Administration Pravastatin Sodium 20 mg 07/08/23 21:00 07/12/23 20:27 Pravastatin Sodium 20 Mg Tablet PO 20 mg BEDTIME MAHNAZ Administration Sodium Chloride 1 syr 07/09/23 21:00 07/13/23 06:24 0.9% Sodium Chloride 10 Ml Disp.Syrin IVF 1 syr Q8HR MAHNAZ Administration Tramadol HCl 50 mg 07/08/23 21:00 07/13/23 08:08 Tramadol Hcl 50 Mg Tablet PO 50 mg TID MAHNAZ Administration Plan Plan: 1. Acute hypoxic respiratory failure in setting of pneumonia - Resolved, off oxygen, cont abx 2. Right lower lobe pneumonia, community acquired - MRSA neg, stop vanc. invanz. Legionella urine antigen, strep pneumo urine antigen pending. Trend wbc count and procal. 3. UTI with chronic conklin, most recently ESBL+ e coli - Urine culture showing strep uberis. Possible contaminant. invanz to cover pna, esbl + e coli (recent culture from ) and strep organisms. 4. Sepsis in setting of RLL PNA and UTI - Resolved. [place] normal, pt received 2L of fluids, euvolemic currently and eating/drinking, blood cultures drawn and negative x 1 day 5. DMT2 - Cont long acting. Diabetic diet. Accuchecks qachs. Humalog sliding scale. 6. Hyperlipidemia - Cont home meds 7. Weakness d/t above - PT/OT to eval and treat, patient would benefit from continued services of home health PT/OT/NURSING due to continued weakness and chronic conditions upon discharge DVT Prophylaxis: Lovenox Dispo: Due to organism in urine, would like for patient to receive 7 days of antibiotics. Currently on day 6. He is unable to come in for outpatient administration or complete home administration. Plan to d/c on 07/13 Review Statement Review Statement: I have personally discussed and reviewed the patient's visit/currently labs/imaging/decision making with Dr. Lopez, my supervising attending. Greater that 50 minutes spent with patient, 50% of the time spent with this patient was devoted to counseling and coordination of care.
[2023-07-14 05:46] VITALS: BP 93/53; PULSE 86; RESP 16; TEMP 98
[2023-07-14 05:55] LABS: BASOPHILS % (AUTO) 0.4 % (0.0-3.0); EOSINOPHILS # (AUTO) 0.3 K/ul (0.0-0.7); EOSINOPHILS % (AUTO) 4.3 % (0.0-7.0); HEMATOCRIT 32.9 % (42.0-52.0); HEMOGLOBIN 10.7 g/dl (14.0-18.0); IMMATURE GRANULOCYTE # (AUTO) 0.1 (0.0-1.0); IMMATURE GRANULOCYTE % (AUTO) 0.6 % (0.0-5.0); LYMPHOCYTES # (AUTO) 1.8 K/uL (0.60-3.4); LYMPHOCYTES % (AUTO) 22.3 (10.0-50.0); MEAN CORPUSCULAR HEMOGLOBIN 30.6 pg (27.0-31.0); MEAN CORPUSCULAR HGB CONC 32.5 (31.8-35.4); MONOCYTES # (AUTO) 0.8 K/uL (0.4-2.0); MONOCYTES % (AUTO) 10.2 (0-10); NEUTROPHILS # (AUTO) 4.9 K/ul (2.0-6.9); NEUTROPHILS % (AUTO) 62.2 % (42.2-75.2); PLATELET COUNT 299 10^3/uL (140-440); RDW COEFFICIENT OF VARIATION 13.1 % (11.6-14.8); WHITE BLOOD COUNT 7.94 K/ul (4.2-10.2)
[2023-07-14 06:12] LABS: ALANINE AMINOTRANSFERASE 28.7 U/L (0-50); ALBUMIN 3.14 g/dL (3.5-5.0); ALKALINE PHOSPHATASE 68.2 U/L (56-119); ASPARTATE AMINO TRANSFERASE 45.9 U/L (17-59); BILIRUBIN,TOTAL 0.95 mg/dL (0.2-1.3); CALCIUM 8.95 mg/dL (8.4-10.2); CARBON DIOXIDE 28.4 mmol/L (22-30.0); CHLORIDE 98.3 mmol/L (98-107); CREATININE 0.66 mg/dL (0.60-1.10); GLUCOSE 122.8 mg/dL (74-106); POTASSIUM 3.63 mmol/L (3.5-5.1); SODIUM 131.4 mmol/L (134.5-145); TOTAL PROTEIN 6.55 g/dL (6.3-8.2)
--- NOTE | 2023-07-14 09:50 | DCSUM ---
Admission Date Admission Date: 07/08/23 Discharge Date Discharge Date: 07/14/23 Admission Diagnosis Admission Diagnosis: 1. Acute hypoxic respiratory failure in setting of pneumonia 2. Right lower lobe pneumonia, community acquired 3. UTI with chronic conklin, most recently ESBL+ e coli 4. Sepsis in setting of RLL PNA and UTI 5. DMT2 6. Hyperlipidemia Discharge Diagnosis Discharge Diagnosis: 1. Acute hypoxic respiratory failure in setting of pneumonia - Resolved 2. Right lower lobe pneumonia, community acquired - Resolved, completed course of abx 3. UTI with chronic conklin, d/t strep uberis - Resolved, completed course of abx 4. Sepsis in setting of RLL PNA and UTI - Resolved/ruled out 5. DMT2 - Chronic, stable 6. Hyperlipidemia - Chronic, stable 7. 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 He was recently treated for a UTI on that grew ESBL+ e coli. He was treated with macrobid 100 mg bid by his PCP. Pt unsure of start date. States that he's had issues with UTIs since having his conklin. He was noted to be tachycardic, mildly hypoxic in upper 80s, and tachypneic in the ER. He was treated as sepsis and given 2L of fluid, invanz and vanc. Invanz changed to merrem to treat ESBL and pneumonia. UA still positive for UTI. CXR showing right lower lobe pna. Lactic was normal. Procal and WBC count elevated. Conklin last changed 14 days ago. Patient lives at home alone and uses a walker to ambulate. Has meals delivered. Has home health. States he has someone come in daily. Hospital Course Subjective: During course of stay, patient was initally on 2L of oxygen due to hypoxia secondary to pneumonia. He was weaned off and has not required it over the last 4 days. He was treated initially with vanc and cefepime. MRSA was negative. Legionella urine antigen negative and strep pneumo negative as well. Vanc was stopped after MRSA negative. Also was treated for UTI with chornic conklin. Recently was treated for ESBL + e. col. Urine culture this visit showed strep uberis. Invanz course given to cover both pneumonia, ESBL + e. coli, and strep organisms. Met sepsis criteria in ER. LA normal. Received 2L of fluids. Blood cultures obtained during inpatient stay and negative x 3 days now. All home medications continued without changes made. Patient has continued to be weak and worked with Pt/Ot during stay. He has home health services at home and was not interested in [facility]. He will need further home health pt/ot/nursing due to weakness from recent/recurrent illness. Appearance: Pleasant, No Apparent Distress and Alert HEENT: MMM and Supple CVS: No Murmur Abdomen: Soft, Non-Tender and No Distention Respiratory: No Dyspnea Extremities: No Edema Vital Signs: Most Recent Vital Signs Temperature 98 F 07/14/23 05:46 Temperature Source Oral 07/14/23 05:46 Temperature Source Infrared 07/08/23 14:31 Pulse Rate 86 07/14/23 05:46 Respiratory Rate 16 07/14/23 05:46 Blood Pressure 93/53 L 07/14/23 05:46 Blood Pressure Mean 66 07/14/23 05:46 Blood Pressure Left Arm 144/82 07/08/23 18:00 Blood Pressure Right Arm 171/101 07/08/23 18:00 Blood Pressure Location Left Arm 07/14/23 05:46 Blood Pressure Position Supine 07/14/23 05:46 O2 Sat by Pulse Oximetry 95 07/14/23 05:46 Oxygen Delivery Method Room Air 07/14/23 05:46 Oxygen Flow Rate 2 07/10/23 10:00 Height 6 ft 2 in 07/09/23 08:25 Weight 162 lb 3 oz 07/11/23 11:55 Telemetry Type Remote Telemetry 07/14/23 07:00 Telemetry Monitoring Continues 07/14/23 07:00 Telemetry Heart Rate 73 07/14/23 07:00 Telemetry SPO2 94 07/11/23 19:00 EKG PA Interval 0.18 07/14/23 07:00 EKG QRS Interval 0.09 07/14/23 07:00 Telemetry Strip Reading NSR 07/14/23 07:00 Lab Results Last 24 Hours: 07/14/23 05:47 WBC 7.94 RBC 3.50 L Hgb 10.7 L Hct 32.9 L MCV 94.0 MCH 30.6 MCHC 32.5 RDW Coeff of Pat 13.1 Plt Count 299 Immature Gran % (Auto) 0.6 Neut % (Auto) 62.2 Lymph % (Auto) 22.3 [place] % (Auto) 10.2 H Eos % (Auto) 4.3 Baso % (Auto) 0.4 Neut # (Auto) 4.9 Lymph # (Auto) 1.8 [place] # (Auto) 0.8 Eos # (Auto) 0.3 Baso # (Auto) 0.0 Immature Gran # (Auto) 0.1 Sodium 131.4 L Potassium 3.63 Chloride 98.3 Carbon Dioxide 28.4 Anion Gap 8.33 BUN 19.0 Creatinine 0.66 Estimated GFR (MDRD) 114.00 BUN/Creatinine Ratio 28.78 Glucose 122.8 H Calcium 8.95 Total Bilirubin 0.95 AST 45.9 ALT 28.7 Alkaline Phosphatase 68.2 Total Protein 6.55 Albumin 3.14 L Globulin 3.41 Albumin/Globulin Ratio 0.92 Discharge Instructions Discharge Planning: Discharge Planning > 40 minutes If patient is discharged with left ventricular systolic dysfunction: NA Discharged with a beta jemma? [] If no, why not? [] Discharged with an mulugeta/arb? [] If no, why not? [] DX: ACUTE HYPOXIC RESPIRATORY FAILURE IN SETTING OF PNEUMONIA, UTI RX: NONE DIABETIC DIET ACTIVITY TOLERATED HOME HEALTH PT/OT/NURSING FOLLOW-UP WITH PCP NEXT WEEK Discharge Medications: Medications at Discharge (Home Meds & RX) pravastatin 20 mg tablet 20 mg PO BEDTIME 12/28/21 calcium carbonate 500 mg calcium (1,250 mg) chewable tablet (Calcium 500) 1,000 mg (2 x 500 mg calcium (1,250 mg)) PO QDAY #60 tabs 08/03/22 cholecalciferol (vitamin D3) 50 mcg (2,000 unit) capsule 50 mcg PO QDAY #30 caps 08/03/22 oxybutynin chloride 5 mg tablet 5 mg PO QDAY 08/12/22 dorzolamide 22.3 mg-timolol 6.8 mg/mL eye drops 1 drp BOTHEYES BID #10 mL 12/28/22 insulin degludec 200 unit/mL (3 mL) subcutaneous pen (Tresiba FlexTouch U-200 insulin) 15 unit (0.075 mL) subcut QDAY #9 mL 12/28/22 latanoprost 0.005 % eye drops 1 drp BOTHEYES QPM #2.5 mL 12/28/22 pen needle, diabetic 32 gauge x 1/4" (Novofine 32) #100 ea 12/28/22 tramadol 50 mg tablet 50 mg PO TID pain #90 tabs 12/28/22 meloxicam 15 mg tablet 15 mg PO QDAY PRN pain 04/28/23 dicyclomine 10 mg capsule 10 mg PO ONCE PRN bladder spasms #30 caps 05/04/23 gabapentin 100 mg capsule 100 - 200 mg (1 - 2 x 100 mg) PO QPM PRN muscle spasm #60 caps 05/04/23 mirtazapine 7.5 mg tablet 7.5 mg PO QPM #30 tabs 05/04/23 nitrofurantoin monohydrate/macrocrystals 100 mg capsule (Macrobid) 100 mg PO Q12H #14 caps 07/04/23 fluticasone propionate 50 mcg/actuation nasal spray,suspension See Rx Instructions .Route .COMPLEX #16 grams 07/07/23 hydrocodone 7.5 mg-acetaminophen 325 mg tablet 1 tab PO BID PRN pain 07/08/23 calcitonin (salmon) 200 unit/actuation nasal spray See Rx Instructions .Route .COMPLEX #3.7 mL 07/11/23 Discharge Plan Discharge Discharge Orders: Discharge Patient (ONCE); Ordered 07/14/23 Ordered By: SARAH SIERRA Activity Restrictions/Additional Instructions: Diabetic Diet Activity as tolerated Continue home health PT/OT/NURSING Follow-up with pcp next week [facility] HAS BEEN NOTIFIED OF YOUR STAY AND A RESUMPTION OF CARE WAS SENT TO THEM NOTIFYING OF YOUR DISCHARGE FROM THE HOSPITAL. THEY WILL BE IN CONTACT WITH YOU TO INITIATE RESUMPTION OF HOME HEALTH THERAPY/NURSING SERVICES. Instructions: Urinary Tract Infection in Men (GEN), Community Acquired Pneumonia (GEN) Prescriptions: No Action calcium carbonate [Calcium 500] 500 mg calcium (1,250 mg) tablet,chewable 1,000 mg PO QDAY Qty: 60 5RF cholecalciferol (vitamin D3) 50 mcg (2,000 unit) capsule 50 mcg PO QDAY Qty: 30 5RF dorzolamide-timolol 22.3-6.8 mg/mL drops 1 drp BOTHEYES BID Qty: 10 3RF latanoprost 0.005 % drops 1 drp BOTHEYES QPM Qty: 2.5 3RF (DME) pen needle, diabetic [Novofine 32] 32 gauge x 1/4" needle See Rx Instructions .ROUTE Qty: 100 3RF Rx Instructions: As directed tramadol 50 mg tablet 50 mg PO TID Qty: 90 1RF Rx Instructions: give at least 6 hours apart insulin degludec [Tresiba FlexTouch U-200] 200 unit/mL (3 mL) insulin pen 15 unit subcut QDAY Qty: 9 3RF nitrofurantoin monohyd/m-cryst [Macrobid] 100 mg capsule 100 mg PO Q12H Qty: 14 0RF Patient Comments: Was started on at MD office for UTI Rx Instructions: must administer with a meal/food fluticasone propionate 50 mcg/actuation spray,suspension See Rx Instructions .ROUTE .COMPLEX Qty: 16 3RF Dose Instruction: ADMINISTER 2 SPRAYS INTO EACH NOSTRIL DAILY NEEDED FOR CONGESTION Rx Instructions: ADMINISTER 2 SPRAYS INTO EACH NOSTRIL DAILY NEEDED FOR CONGESTION calcitonin (salmon) 200 unit/actuation spray,non-aerosol See Rx Instructions .ROUTE .COMPLEX Qty: 3.7 3RF Dose Instruction: ADMINISTER ONE (1) SPRAY INTO ONE NOSTRIL (ALTERNATE) DAILY Rx Instructions: ADMINISTER ONE (1) SPRAY INTO ONE NOSTRIL (ALTERNATE) DAILY pravastatin 20 mg Tablet 20 mg PO BEDTIME hydrocodone-acetaminophen 7.5-325 mg tablet 1 tab PO BID PRN (Reason: pain) oxybutynin chloride 5 mg tablet 5 mg PO QDAY meloxicam 15 mg tablet 15 mg PO QDAY PRN (Reason: pain) Rx Instructions: Take 1 tablet at bedtime as needed dicyclomine 10 mg capsule 10 mg PO ONCE PRN (Reason: bladder spasms) Qty: 30 3RF Rx Instructions: Take 1 Tablet by Mouth Daily for Bladder Spasms gabapentin 100 mg capsule 100 - 200 mg PO QPM PRN (Reason: muscle spasm) Qty: 60 3RF mirtazapine 7.5 mg tablet 7.5 mg PO QPM Qty: 30 3RF Did you review [place] ESTIMATOR for ALL controlled substances?: No Discussed opioids are addictive and Narcan is available by prescription or from pharmacy.: No Condition: Stable Referrals: VIPUL AJ MD [Primary Care Provider] - 07/20/23 10:20 am
== END 2023-07-14 13:08 | disposition home health service (06) | DRG 193 ==
LOC: ED 14:29 → MEDSURG B 16:18
PROVIDERS: ADMIT Hospitalist; ATTEND Nurse Practitioner Family
DX: A41.9 Sepsis, unspecified organism; B95.0 Streptococcus, group A, as the cause of diseases classified elsewhere; Z20.822 Contact with and (suspected) exposure to COVID-19; Z16.12 Extended spectrum beta lactamase (ESBL) resistance; Z87.891 Personal history of nicotine dependence; Z96.0 Presence of urogenital implants; E11.9 Type 2 diabetes mellitus without complications; J96.01 Acute respiratory failure with hypoxia; J18.9 Pneumonia, unspecified organism; E78.5 Hyperlipidemia, unspecified; Z93.3 Colostomy status; B96.20 Unspecified Escherichia coli [E. coli] as the cause of diseases classified elsewhere; N39.0 Urinary tract infection, site not specified

== ENCOUNTER 2023-08-22 11:04 | Observation (INO) ==
--- NOTE | 2023-08-22 11:42 | ED.PDOC ---
General ED Provider: Dr. ABDOUL BARLOW MD Chief Complaint: Altered Mental Status Stated Complaint: patient with a history of type 2 diabetes, Marion's gangrene, chronic indwelling Neff catheter frequent urine tract infections history of urosepsis in the past daughter states that the patient had increasing confusion presently treated for urinary tract infection with antibiotic Macrobid 50 mg twice daily. Denies history of head injury, trauma, fall, fever, chills. Time Seen by Provider: 08/22/23 11:31 Mode of Arrival: Wheelchair Information Source: Patient and Family Exam Limitations: Clinical condition Primary Care Provider: VIPUL AJ MD Nursing and Triage Documentation Reviewed and Agree: Yes What is Opioid Naive?: *Opioid Naive implies the patient is not already taking opioids or not chronically receiving opioids on a daily basis. *PRN dosing is not "usually" associated with tolerance. *Patients are at higher risk of over-sedation and aspiration. What is Opioid Tolerant?: *Opioid Tolerance implies less than the expected response to an opioid. *Acquired tolerance is defined by the patient taking 60mg of oral morphine daily (or equianalgesic dose of another opioid) for 1 week or more. *Often associated with chronic pain. *May take more than usual dose to achieve desired pain control. Review of Systems Review Of Systems Constitutional: Reports No symptoms Eyes: Reports No symptoms Ears, Nose, Mouth, Throat: Reports No symptoms Respiratory: Reports No symptoms Cardiac: Reports No symptoms GI: Reports No symptoms : Reports No symptoms Musculoskeletal: Reports No symptoms Skin: Reports No symptoms Neurological: Reports Other (Altered mental status) Endocrine: Reports No symptoms Hematologic/Lymphatic: Reports No symptoms All Other Systems: Reviewed and Negative [facility] Medical History Glaucoma 2009 LEFT EYE H40.9 - Unspecified glaucoma (ICD-10) Cataract BILATERAL H26.9 - Unspecified cataract (ICD-10) Seborrhea L21.9 - Seborrheic dermatitis, unspecified (ICD-10) Melanoma 2005 TO THE RIGHT SIDE OF THE RIGHT EYE C43.9 - Malignant melanoma of skin, unspecified (ICD-10) Calculus of kidney 2013 N20.0 - Calculus of kidney (ICD-10) Varicella HAD CHICKEN POX A CHILD B01.9 - Varicella without complication (ICD-10) Hearing problem USES RIGHT AND LEFT HEARING ADES H91.90 - Unspecified hearing loss, unspecified ear (ICD-10) Mumps HAD A CHILD B26.9 - Mumps without complication (ICD-10) Measles HAD A CHILD B05.9 - Measles without complication (ICD-10) Stress incontinence, male DUE TO CATHETERIZATION FOR KIDNEY STONE 2013 N39.3 - Stress incontinence (female) (male) (ICD-10) Family History Mother , HEART at age 69. Breast cancer, left Cardiac disease SISTER , COPD at age 76. COPD (chronic obstructive pulmonary disease) Asthma BROTHER , LIVER PROBLEMS at age 55. No problems noted. 19 CHILD , MALIGNANT BRAIN TUMO at age 11. No problems noted. 19 CHILD Breast cancer, left Social History Smoking and tobacco status: Former smoker Alcohol intake: never Counseling given: No Substance use type: does not use Counseling given: No Taylor/advent: DRUZE Special taylor needs: No Agree to transfusion: Yes Adopted: No Caregiver/support person: No Foster care: No Household members: none Housing: house Marital status: D Lives independently: Yes Number of children: 3 service: Yes branch: [employer] retirement: No Current occupational status: retired Pets and animals: No Leisure activites: other History of recent travel: No Sexually active: No Do you think of yourself as: straight/heterosexual Current gender identity: male Seatbelt use: always Drives intoxicated or rides with intoxicated cat driver: No Water heater temperature set < 120 degrees: Yes Working smoke detector in home: Yes Fire extinguisher in home: Yes Carbon monoxide detector in home: Yes Firearms in home: No Surgical History Cataract extraction and insertion of intraocular lens OCTOBER 2014 LEFT EYE History of orthopedic surgery RIGHT HAND Z98.890 - Other specified postprocedural states (ICD-10) Physical Exam Physical Exam Appearance: Reports Well-appearing and Other ( patient is alert and appropriate oriented x 3) Ill-appearing: None Pain Distress: None Eyes: Reports ANDREW, EOMI and Conjunctiva clear ENT: Reports Ears normal, Nose normal and Oropharynx normal Neck: Supple Respiratory: Reports Airway patent, Breath sounds clear and Breath sounds equal Cardiovascular: Reports RRR, Pulses normal, No rub and No murmur GI/: Reports Nontender, No masses and Bowel sounds normal Musculoskeletal: Reports Normal strength and ROM intact Skin: Reports Warm, Dry and Other (Scalp examination there is no localized swelling crepitus or ecchymosis.) Neurological: Reports Sensation intact, Motor intact, Reflexes intact, Cranial nerves intact, Alert, Oriented and Unresponsive Psychiatric: Reports Affect appropriate and Mood appropriate Physician Notification Case Discussed Physician Notified: Discussed with hospitalist Arsen Alaniz Time of Notification: 13:50 Comments: And after review of all laboratory data CT scans findings recommendation of observation Critical Care Note Critical Care Note Total Critical Care Time (mins): 20 Course Course 08/22/23 11:58 08/22/23 11:58 Orders, Labs, Meds: Lab Review 08/22/23 08/22/23 08/22/23 11:27 11:58 12:21 WBC 20.02 H RBC 4.06 L Hgb 12.2 L Hct 38.4 L MCV 94.6 H MCH 30.0 MCHC 31.8 RDW Coeff of Pat 13.6 Plt Count 238 Immature Gran % (Auto) 0.3 Neut % (Auto) 86.9 H Lymph % (Auto) 7.4 L [place] % (Auto) 4.7 Eos % (Auto) 0.6 Baso % (Auto) 0.1 Neut # (Auto) 17.4 H Lymph # (Auto) 1.5 [place] # (Auto) 1.0 Eos # (Auto) 0.1 Baso # (Auto) 0.0 Immature Gran # (Auto) 0.1 Sodium 133.3 L Potassium 3.65 Chloride 100.3 Carbon Dioxide 25.5 Anion Gap 11.15 BUN 16.0 Creatinine 0.49 L Estimated GFR (MDRD) 161.00 BUN/Creatinine Ratio 32.65 Glucose 251.5 H Lactic Acid 1.09 Calcium 9.02 Total Bilirubin 1.14 AST 49.4 ALT 25.5 Alkaline Phosphatase 57.4 Troponin I < 0.012 Total Protein 7.04 Albumin 3.43 L Globulin 3.61 Albumin/Globulin Ratio 0.95 Urine Color Dark Urine Clarity Turbid Urine pH 7.0 Ur Specific [place] 1.020 Urine Protein 2+ H Urine Glucose (UA) Negative Urine Ketones Negative Urine Blood 3+ H Urine Nitrite Positive H Urine Bilirubin Negative Urine Urobilinogen 2.0 H Ur Leukocyte Esterase 1+ H Urine Microscopic RBC Tntc Urine Microscopic WBC 50-100 Ur Squamous Epith Cells Not present Ur Renal Epithelial Cell 10-20 Calcium Oxalate Crystal 3+ Urine Bacteria 3+ Urine Mucus Trace Orders Category Date Time Status EKG-(ED ONLY) Stat CARDIO 08/22/23 11:42 Completed Police Investigator [ED NEWS ASSIGNMENT EDITOR APPLIED] .ONCE EMERGENCY 08/22/23 11:42 Active BLOOD CULTURE (ED ONLY) Stat LAB 08/22/23 12:34 Received CBC W/ AUTO DIFF Stat LAB 08/22/23 11:58 Completed CMP [COMPREHENSIVE METABOLIC PANEL] Stat LAB 08/22/23 11:58 Completed LACTIC ACID Stat LAB 08/22/23 12:21 Completed TROPONIN I Stat LAB 08/22/23 11:58 Completed URINALYSIS C & S IF INDICATED Stat LAB 08/22/23 11:27 Completed URINE CULTURE Stat LAB 08/22/23 11:27 Received Piperacillin Sodium/Tazobactam [Zosyn 4.5 gm] 4.5 gm Meds 08/22/23 12:25 Discontinued 0.9 % Sodium Chloride [Sodium Chloride 100Ml] 100 ml IV ONCE Sodium Chloride 0.9% [Sodium Chloride] 1,000 ml Meds 08/22/23 11:42 Active IV 100 mls/hr CHEST, 1V AP ONLY Stat RADS 08/22/23 11:[address] HEAD W/O CONTRAST Stat RADS 08/22/23 11:42 Completed Medications Generic Name Dose Route Start Last Admin Trade Name Freq PRN Reason Stop Dose Admin Sodium Chloride 1,000 mls @ 100 mls/hr 08/22/23 11:42 08/22/23 13:08 Sodium Chloride IV 08/22/23 21:41 100 mls/hr .Q10H ONE Administration Discontinued Medications Generic Name Dose Route Start Last Admin Trade Name Freq PRN Reason Stop Dose Admin Piperacillin Sod/Tazobactam 100 mls @ 200 mls/hr 08/22/23 12:25 08/22/23 13:08 Sod 4.5 gm/ Sodium Chloride IV 08/22/23 12:54 200 mls/hr ONCE ONE Administration Vital Signs: Temp Pulse Resp BP Pulse Ox 08/22/23 11:15 98.3 F 90 16 153/80 H 95 Physician Progress Note: History obtained from the patient is daughter who states that the patient been more confused than normal patient denies complaints recently treated for urine tract infection on date 08/15/2023 with Macrobid at 50 mg twice daily. Patient denies coughing, dyspnea. The urine culture apparently is only sensitive to Zosyn tobramycin) or ertapenem gentamicin Daughter states that patient history of chronic indwelling Neff catheter and chronic UTIs. Patient has a history of altered mental status with the patient is more altered than normal per history from daughter. No history of fever, fall, trauma, injury. EKG interpretation by myself is consistent with normal sinus rhythm rate of 91 there is inferior lateral T wave and anteroseptal abnormality. After 2 sets of blood cultures patient placed on Zosyn 4.5 g IV piggyback. Laboratory data CBC the white blood cell count is 20,000 the chemistries are within normal limits have a glucose of 231, lactic acid 1.0, troponin less than 0.012, urinalysis nitrates positive, leukocyte esterase 1+, RBCs is TNTC WBCs is 50-100 and bacteria 3+ His CT scan without intravenous contrast interpretation by the radiologist shows no acute cardiopulmonary process. Portable chest x-ray interpretation by the radiologist is consistent with bibasilar bronchial thickening and reticular opacities which are similar to prior study could be due to acute inflammation or chronic interstitial changes Differential diagnosis 1) acute cystitis 2) altered mental status Discussed with hospitalist Arsen Alaniz at 1350 observation [] Discharge Plan Discharge Patient Disposition: PLACED OBSERVATION Discharge Problem: Acute cystitis with hematuria Altered mental status Qualifiers: Altered mental status type: unspecified Qualified Code(s): R41.82 - Altered mental status, unspecified Prescriptions: No Action calcium carbonate [Calcium 500] 500 mg calcium (1,250 mg) tablet,chewable 1,000 mg PO QDAY Qty: 60 5RF cholecalciferol (vitamin D3) 50 mcg (2,000 unit) capsule 50 mcg PO QDAY Qty: 30 5RF dorzolamide-timolol 22.3-6.8 mg/mL drops 1 drp BOTHEYES BID Qty: 10 3RF latanoprost 0.005 % drops 1 drp BOTHEYES QPM Qty: 2.5 3RF (DME) pen needle, diabetic [Novofine 32] 32 gauge x 1/4" needle See Rx Instructions .ROUTE Qty: 100 3RF Rx Instructions: As directed tramadol 50 mg tablet 50 mg PO TID Qty: 90 1RF Rx Instructions: give at least 6 hours apart insulin degludec [Tresiba FlexTouch U-200] 200 unit/mL (3 mL) insulin pen 15 unit subcut QDAY Qty: 9 3RF fluticasone propionate 50 mcg/actuation spray,suspension See Rx Instructions .ROUTE .COMPLEX Qty: 16 3RF Dose Instruction: ADMINISTER 2 SPRAYS INTO EACH NOSTRIL DAILY NEEDED FOR CONGESTION Rx Instructions: ADMINISTER 2 SPRAYS INTO EACH NOSTRIL DAILY NEEDED FOR CONGESTION calcitonin (salmon) 200 unit/actuation spray,non-aerosol See Rx Instructions .ROUTE .COMPLEX Qty: 3.7 3RF Dose Instruction: ADMINISTER ONE (1) SPRAY INTO ONE NOSTRIL (ALTERNATE) DAILY Rx Instructions: ADMINISTER ONE (1) SPRAY INTO ONE NOSTRIL (ALTERNATE) DAILY mirtazapine 7.5 mg tablet See Rx Instructions .ROUTE .COMPLEX Qty: 30 3RF Dose Instruction: TAKE ONE (1) TABLET BY MOUTH NIGHTLY AT BEDTIME Rx Instructions: TAKE ONE (1) TABLET BY MOUTH NIGHTLY AT BEDTIME nitrofurantoin macrocrystal [Macrodantin] 50 mg capsule 50 mg PO BID 10 Days Qty: 20 0RF Rx Instructions: must administer with a meal/food pravastatin 20 mg Tablet 20 mg PO BEDTIME hydrocodone-acetaminophen 7.5-325 mg tablet 1 tab PO BID PRN (Reason: pain) oxybutynin chloride 5 mg tablet 5 mg PO QDAY meloxicam 15 mg tablet 15 mg PO QDAY PRN (Reason: pain) Rx Instructions: Take 1 tablet at bedtime as needed dicyclomine 10 mg capsule 10 mg PO ONCE PRN (Reason: bladder spasms) Qty: 30 3RF Rx Instructions: Take 1 Tablet by Mouth Daily for Bladder Spasms gabapentin 100 mg capsule 100 - 200 mg PO QPM PRN (Reason: muscle spasm) Qty: 60 3RF Did you review [place] NURSE WOUND CARE for ALL controlled substances?: Not Applicable ED Provider: ABDOUL BARLOW Condition: Stable [place] Coma Scale Melissa Coma Scale Response Scores: Best Response = 15 Comatose Client = 8 or Less Totally Unresponsive = 3
[2023-08-22 11:55] LABS: BILIRUBIN,URINE Negative (NEGATIVE); CLARITY,URINE Turbid (CLEAR); COLOR,URINE Dark (YELLOW); GLUCOSE, URINE (UA) Negative (NEGATIVE); KETONES,URINE Negative (NEGATIVE); LEUKOCYTE ESTERASE ,URINE 1+ (NEGATIVE); NITRITE,URINE Positive (NEGATIVE); PROTEIN,URINE 2+ (NEGATIVE); URINE, BLOOD 3+ (NEGATIVE)
[2023-08-22 11:56] LABS: SQUAMOUS EPITHELIAL CELL,UR NOT PRESENT (0-5)
[2023-08-22 12:02] LABS: BASOPHILS % (AUTO) 0.1 % (0.0-3.0); EOSINOPHILS # (AUTO) 0.1 K/ul (0.0-0.7); EOSINOPHILS % (AUTO) 0.6 % (0.0-7.0); HEMATOCRIT 38.4 % (42.0-52.0); HEMOGLOBIN 12.2 g/dl (14.0-18.0); IMMATURE GRANULOCYTE # (AUTO) 0.1 (0.0-1.0); IMMATURE GRANULOCYTE % (AUTO) 0.3 % (0.0-5.0); LYMPHOCYTES # (AUTO) 1.5 K/uL (0.60-3.4); LYMPHOCYTES % (AUTO) 7.4 (10.0-50.0); MEAN CORPUSCULAR HGB CONC 31.8 (31.8-35.4); MEAN CORPUSCULAR VOLUME 94.6 fl (80.0-94.0); MONOCYTES % (AUTO) 4.7 (0-10); NEUTROPHILS # (AUTO) 17.4 K/ul (2.0-6.9); NEUTROPHILS % (AUTO) 86.9 % (42.2-75.2); PLATELET COUNT 238 10^3/uL (140-440); RDW COEFFICIENT OF VARIATION 13.6 % (11.6-14.8); RED BLOOD COUNT 4.06 10^6/ul (4.70-6.10); WHITE BLOOD COUNT 20.02 K/ul (4.2-10.2)
[2023-08-22 12:04] LABS: CALCIUM OXALATE CRYSTALS,UR 3+ (NOT PRESENT); URINE RBC, MICROSCOPIC TNTC (0-2); URINE WBC, MICROSCOPIC 50-100 (0-2)
[2023-08-22 12:05] LABS: BACTERIA,URINE 3+ (NOT PRESENT); MUCUS,URINE TRACE (NOT PRESENT)
[2023-08-22 12:15] LABS: ALANINE AMINOTRANSFERASE 25.5 U/L (0-50); ALBUMIN 3.43 g/dL (3.5-5.0); ALKALINE PHOSPHATASE 57.4 U/L (56-119); ASPARTATE AMINO TRANSFERASE 49.4 U/L (17-59); BILIRUBIN,TOTAL 1.14 mg/dL (0.2-1.3); CALCIUM 9.02 mg/dL (8.4-10.2); CARBON DIOXIDE 25.5 mmol/L (22-30.0); CHLORIDE 100.3 mmol/L (98-107); CREATININE 0.49 mg/dL (0.60-1.10); GLUCOSE 251.5 mg/dL (74-106); POTASSIUM 3.65 mmol/L (3.5-5.1); SODIUM 133.3 mmol/L (134.5-145); TOTAL PROTEIN 7.04 g/dL (6.3-8.2)
[2023-08-22 12:31] LABS: TROPONIN I < 0.012 ng/ml (0.0000-0.120)
[2023-08-22] MEDS: ZOSYN 4.5 GM 4.5 GM in SODIUM CHLORIDE 100ML 100 ML IV ONE (13:08)
[2023-08-22] MEDS: SODIUM CHLORIDE 1,000 ML IV ONE (13:08)
--- NOTE | 2023-08-22 13:39 | DI ---
EXAM: CHEST ONE VIEW, FRONTAL VIEW ONLY. HISTORY: Dyspnea. COMPARISON: 07/08/2023 the. FINDINGS: The heart size at the upper limits normal. There is no vascular congestion. Bibasilar br onchial thickening and reticular opacities, greater on the right. Findings are similar to prior stud y the no pleural effusion or pneumothorax identified. No acute osseous abnormality detected. IMPRESSION: Bibasilar bronchial thickening and reticular opacities which are similar to prior study and could be due to acute inflammation or chronic interstitial changes.
--- NOTE | 2023-08-22 13:40 | CT ---
EXAM: CT OF THE HEAD WITHOUT CONTRAST. HISTORY: Increasing confusion. COMPARISON: None available. TECHNIQUE: Axial noncontrast CT of the head. Sagittal and coronal reformats were obtained. FINDINGS: No intracranial hemorrhage or mass effect is identified. There is moderate prominence of the sulci a nd minimal prominence of the ventricles. Mild periventricular white matter hypodensities are seen. Chronic basal ganglial calcifications are noted. No kendall white matter differentiation loss is seen to suggest an acute infarct. The calvarium is intact. The visualized paranasal sinuses are unopacified. Operative changes of the left globe are seen. IMPRESSION: No evidence of an acute intracranial process. Moderate atrophy and mild chronic small vessel ischemic changes. All CT scans are performed using dose optimization techniques as appropriate to the performed exam an d include at least one of the following: Automated exposure control, adjustment of the mA and/or kV according t o size, and the use of iterative reconstruction technique.
[2023-08-22] MEDS ORDERED: ZOFRAN 4 MG/2 ML IVP PRN (13:56)
[2023-08-22 14:16] LABS: SARS COV-2 RNA RAPID NAAT NEGATIVE (NEGATIVE)
--- NOTE | 2023-08-22 15:32 | PCM ---
Date of Service Date Seen by Provider: 08/22/23 Time Seen by Provider: 15:20 Admit Day/Time Admission Date: 08/22/23 Admission Time: 13:45 Reason for Admission Chief Complaint: UTI Hospital Provider Hospital Provider: MAE WEAVER, [facility] [place] Primary Care Physician: VIPUL LOPEZ MD History of Present Illness History of Present Illness: 87 yo male presented to the ER today with daughter for altered mental status. Daughter reports that she has noticed episodes of confusion intermittently over the past week. He was diagnosed with a UTI and started on macrobid 500 mg BID. Urine culture revealed ESBL+ E.coli, resistant to macrobid. WBC count found to be in 20s and urine continuing to show UTI. Patient oriented x 3 at this time. Denies any fever, chills, abd pain, N/V/D. Admitted to med/surg observation Case Discussed With Case Discussed With: Patient's case was discussed with the ER Physicians, Dr. Elder. [facility] Medical History Glaucoma 2009 LEFT EYE H40.9 - Unspecified glaucoma (ICD-10) Cataract BILATERAL H26.9 - Unspecified cataract (ICD-10) Seborrhea L21.9 - Seborrheic dermatitis, unspecified (ICD-10) Melanoma 2005 TO THE RIGHT SIDE OF THE RIGHT EYE C43.9 - Malignant melanoma of skin, unspecified (ICD-10) Calculus of kidney 2013 N20.0 - Calculus of kidney (ICD-10) Varicella HAD CHICKEN POX A CHILD B01.9 - Varicella without complication (ICD-10) Hearing problem USES RIGHT AND LEFT HEARING ADES H91.90 - Unspecified hearing loss, unspecified ear (ICD-10) Mumps HAD A CHILD B26.9 - Mumps without complication (ICD-10) Measles HAD A CHILD B05.9 - Measles without complication (ICD-10) Stress incontinence, male DUE TO CATHETERIZATION FOR KIDNEY STONE 2013 N39.3 - Stress incontinence (female) (male) (ICD-10) Surgical History Cataract extraction and insertion of intraocular lens OCTOBER 2014 LEFT EYE History of orthopedic surgery RIGHT HAND Z98.890 - Other specified postprocedural states (ICD-10) Family History Mother , HEART at age 69. Breast cancer, left Cardiac disease SISTER , COPD at age 76. COPD (chronic obstructive pulmonary disease) Asthma BROTHER , LIVER PROBLEMS at age 55. No problems noted. 19 CHILD , MALIGNANT BRAIN TUMO at age 11. No problems noted. 19 CHILD Breast cancer, left Social History Smoking and tobacco status: Former smoker Alcohol intake: never Counseling given: No Substance use type: does not use Counseling given: No Taylor/nondenominational: CHEONDOISM Special taylor needs: No Agree to transfusion: Yes Adopted: No Caregiver/support person: No Foster care: No Household members: none Housing: house Marital status: D Lives independently: Yes Number of children: 3 service: Yes branch: [employer] detention: No Current occupational status: retired Pets and animals: No Leisure activites: other History of recent travel: No Sexually active: No Do you think of yourself as: straight/heterosexual Current gender identity: male Seatbelt use: always Drives intoxicated or rides with intoxicated motor vehicle escort driver: No Water heater temperature set < 120 degrees: Yes Working smoke detector in home: Yes Fire extinguisher in home: Yes Carbon monoxide detector in home: Yes Firearms in home: No Allergies Allergies Allergy/AdvReac Type Severity Reaction Status Date / Time empagliflozin AdvReac Weight loss Verified 08/22/23 14:42 [From Jardiance] Current Medications Home Medications pravastatin 20 mg tablet 20 mg PO BEDTIME 12/28/21 [History Confirmed 08/22/23 Last Taken 07/07/23 20:00 20 mg] calcium carbonate (Calcium 500) 1,000 mg (2 x 500 mg calcium (1,250 mg)) PO QDAY #60 tabs 08/03/22 [Rx Confirmed 08/22/23 Last Taken 07/08/23 08:00 1,000 mg] cholecalciferol (vitamin D3) 50 mcg (2,000 unit) capsule 50 mcg PO QDAY #30 caps 08/03/22 [Rx Confirmed 08/22/23 Last Taken 07/08/23 08:00 50 mcg] oxybutynin chloride 5 mg tablet 5 mg PO QDAY 08/12/22 [History Confirmed 08/22/23 Last Taken 07/07/23 08:00 5 mg] dorzolamide 22.3 mg-timolol 6.8 mg/mL eye drops 1 drp BOTHEYES BID #10 mL 12/28/22 [Rx Confirmed 08/22/23 Last Taken 07/08/23 08:00 1 drp] insulin degludec 200 unit/mL (3 mL) subcutaneous pen (Tresiba FlexTouch U-200 insulin) 15 unit (0.075 mL) subcut QDAY #9 mL 12/28/22 [Rx Confirmed 08/22/23 Last Taken 07/07/23 08:00 15 units] latanoprost 0.005 % eye drops 1 drp BOTHEYES QPM #2.5 mL 12/28/22 [Rx Confirmed 08/22/23 Last Taken 07/07/23 20:00 1 drp] pen needle, diabetic 32 gauge x 1/4" (Novofine 32) #100 ea 12/28/22 [Rx Confirmed 08/22/23 Last Taken Unknown] tramadol 50 mg tablet 50 mg PO TID pain #90 tabs 12/28/22 [Rx Confirmed 08/22/23 Last Taken 07/07/23 20:00 50 mg] meloxicam 15 mg tablet 15 mg PO QDAY PRN pain 04/28/23 [History Confirmed 08/22/23 Last Taken Unknown] dicyclomine 10 mg capsule 10 mg PO ONCE PRN bladder spasms #30 caps 05/04/23 [Rx Confirmed 08/22/23 Last Taken Unknown] gabapentin 100 mg capsule 100 - 200 mg (1 - 2 x 100 mg) PO QPM PRN muscle spasm #60 caps 05/04/23 [Rx Confirmed 08/22/23 Last Taken Unknown] fluticasone propionate 50 mcg/actuation nasal spray,suspension See Rx Instructions .Route .COMPLEX #16 grams 07/07/23 [Rx Confirmed 08/22/23 Last Taken Unknown] hydrocodone 7.5 mg-acetaminophen 325 mg tablet 1 tab PO BID PRN pain 07/08/23 [History Confirmed 08/22/23 Last Taken 07/07/23 20:00 1 tab] calcitonin (salmon) 200 unit/actuation nasal spray See Rx Instructions .Route .COMPLEX #3.7 mL 07/11/23 [Rx Confirmed 08/22/23 Last Taken Unknown] mirtazapine 7.5 mg tablet See Rx Instructions .Route .COMPLEX #30 tabs 07/27/23 [Rx Confirmed 08/22/23 Last Taken Unknown] nitrofurantoin macrocrystal 50 mg capsule (Macrodantin) 50 mg PO BID 10 days #20 caps 08/17/23 [Rx Confirmed 08/22/23 Last Taken Unknown] Home Acetaminophen (Acetaminophen 325 Mg Tablet) 650 mg PO Q4H PRN PRN Reason: Mild Pain Sodium Chloride (Sodium Chloride) 1,000 mls @ 100 mls/hr IV .Q10H ONE Stop: 08/22/23 21:41 Last Admin: 08/22/23 13:08 Dose: 100 mls/hr Ertapenem 1 gm/ Sodium (Chloride) 50 mls @ 100 mls/hr IV BEDTIME MAHNAZ Stop: 08/25/23 20:59 Ondansetron HCl (Ondansetron Hcl/Pf 4 Mg/2 Ml Sdv) 4 mg IVP Q6H PRN PRN Reason: Nausea / Vomiting Discontinued Medications Piperacillin Sod/Tazobactam (Sod 4.5 gm/ Sodium Chloride) 100 mls @ 200 mls/hr IV ONCE ONE Stop: 08/22/23 12:54 Last Admin: 08/22/23 13:08 Dose: 200 mls/hr Opioid Naive vs. Tolerant Does Patient Take Opioids?: Yes Is Patient Opioid Naive?: No What is Opioid Naive?: *Opioid Naive implies the patient is not already taking opioids or not chronically receiving opioids on a daily basis. *PRN dosing is not "usually" associated with tolerance. *Patients are at higher risk of over-sedation and aspiration. Is Patient Opioid Tolerant?: No What is Opioid Tolerant?: *Opioid Tolerance implies less than the expected response to an opioid. *Acquired tolerance is defined by the patient taking 60mg of oral morphine daily (or equianalgesic dose of another opioid) for 1 week or more. *Often associated with chronic pain. *May take more than usual dose to achieve desired pain control. Review of Systems Constitutional: Reports Fatigue Head: Reports Normocephalic Eyes: Reports No symptoms Ears: Reports No symptoms Nose: Reports No symptoms Mouth: Reports No symptoms Throat: Reports No symptoms Cardiovascular: Reports No symptoms Respiratory: Reports No symptoms Gastrointestinal: Reports No symptoms Genitourinary: Reports No Symptoms Musculoskeletal: Reports No symptoms Endocrine: Reports No symptoms Hematology: Reports No symptoms Immunology: Reports No symptoms Neurological: Reports Other (confusion) Psychiatric: Reports No symptoms Physical examination Most Recent Vital Signs: Most Recent Vital Signs Temperature 98.3 F 08/22/23 11:15 Temperature Source Infrared 08/22/23 11:15 Pulse Rate 90 08/22/23 11:15 Respiratory Rate 16 08/22/23 11:15 Blood Pressure 153/80 H 08/22/23 11:15 O2 Sat by Pulse Oximetry 95 08/22/23 11:15 Oxygen Delivery Method Room Air 08/22/23 14:40 Height 6 ft 4 in 08/22/23 11:15 Weight 261 lb 08/22/23 11:15 Telemetry Heart Rate 73 07/14/23 07:00 Telemetry SPO2 94 07/11/23 19:00 Appearance: Positive No Apparent Distress and Alert and Oriented x3 Skin: Positive Warm, Good Turgor and Other (stage 2 pressure ulcer to coccyx) HEENT: Positive Normocephalic, Atraumatic and PERRLA Neck: Positive Supple and Midline Trachea Chest/Lungs: Positive Symmetrical With Equal Breath Sounds, Clear to Auscultation Bilaterally and Good Air Movement all 4 Lung [place] Heart: Positive RRR and Pulses Normal GI/: Positive Soft, Nontender, Bowel Sounds Normal, No Distention and Other (ostomy present) Musculoskeletal: Positive Not Examined Extremities: Positive Intact Peripheral Pulses, Stable Joints Without Laxity and Good ROM in All Joints Neurological: Positive Sensation Intact, Motor intact, Alert and Oriented Labs This Visit Labs This Visit: Labs This Visit 08/22/23 08/22/23 08/22/23 11:27 11:58 12:21 WBC 20.02 H RBC 4.06 L Hgb 12.2 L Hct 38.4 L MCV 94.6 H MCH 30.0 MCHC 31.8 RDW Coeff of Pat 13.6 Plt Count 238 Immature Gran % (Auto) 0.3 Neut % (Auto) 86.9 H Lymph % (Auto) 7.4 L [place] % (Auto) 4.7 Eos % (Auto) 0.6 Baso % (Auto) 0.1 Neut # (Auto) 17.4 H Lymph # (Auto) 1.5 [place] # (Auto) 1.0 Eos # (Auto) 0.1 Baso # (Auto) 0.0 Immature Gran # (Auto) 0.1 Sodium 133.3 L Potassium 3.65 Chloride 100.3 Carbon Dioxide 25.5 Anion Gap 11.15 BUN 16.0 Creatinine 0.49 L Estimated GFR (MDRD) 161.00 BUN/Creatinine Ratio 32.65 Glucose 251.5 H Lactic Acid 1.09 Calcium 9.02 Total Bilirubin 1.14 AST 49.4 ALT 25.5 Alkaline Phosphatase 57.4 Troponin I < 0.012 Total Protein 7.04 Albumin 3.43 L Globulin 3.61 Albumin/Globulin Ratio 0.95 Urine Color Dark Urine Clarity Turbid Urine pH 7.0 Ur Specific [place] 1.020 Urine Protein 2+ H Urine Glucose (UA) Negative Urine Ketones Negative Urine Blood 3+ H Urine Nitrite Positive H Urine Bilirubin Negative Urine Urobilinogen 2.0 H Ur Leukocyte Esterase 1+ H Urine Microscopic RBC Tntc Urine Microscopic WBC 50-100 Ur Squamous Epith Cells Not present Ur Renal Epithelial Cell 10-20 Calcium Oxalate Crystal 3+ Urine Bacteria 3+ Urine Mucus Trace SARS CoV-2 RNA Rapid KARINA 08/22/23 13:58 WBC RBC Hgb Hct MCV MCH MCHC RDW Coeff of Pat Plt Count Immature Gran % (Auto) Neut % (Auto) Lymph % (Auto) [place] % (Auto) Eos % (Auto) Baso % (Auto) Neut # (Auto) Lymph # (Auto) [place] # (Auto) Eos # (Auto) Baso # (Auto) Immature Gran # (Auto) Sodium Potassium Chloride Carbon Dioxide Anion Gap BUN Creatinine Estimated GFR (MDRD) BUN/Creatinine Ratio Glucose Lactic Acid Calcium Total Bilirubin AST ALT Alkaline Phosphatase Troponin I Total Protein Albumin Globulin Albumin/Globulin Ratio Urine Color Urine Clarity Urine pH Ur Specific [place] Urine Protein Urine Glucose (UA) Urine Ketones Urine Blood Urine Nitrite Urine Bilirubin Urine Urobilinogen Ur Leukocyte Esterase Urine Microscopic RBC Urine Microscopic WBC Ur Squamous Epith Cells Ur Renal Epithelial Cell Calcium Oxalate Crystal Urine Bacteria Urine Mucus SARS CoV-2 RNA Rapid KARINA Negative Imaging Imaging: EXAM: CHEST ONE VIEW, FRONTAL VIEW ONLY. FINDINGS: The heart size at the upper limits normal. There is no vascular congestion. Bibasilar bronchial thickening and reticular opacities, greater on the right. Findings are similar to prior study the no pleural effusion or pneumothorax identified. No acute osseous abnormality detected. IMPRESSION: Bibasilar bronchial thickening and reticular opacities which are similar to prior study and could be due to acute inflammation or chronic interstitial changes. Review Statement Review Statement: I have independently reviewed and interpreted the labs/EKGs/imaging that were ordered by the ER provider. I have reviewed all outside records that are available currently in our EMR including imaging/notes/labs from previous visits. Plan Plan: 1. Acute on Chronic UTI - ESBL+ E.coli on 08/14, new urine culture pending, ertapenem 1G daily, conklin catheter changed on 08/09 per home health 2. Leukocytosis - due to #1, trend and monitor 3. Hyponatremia - mild, NS@100mL/hr as ordered by ER, monitor 4. DM2 - accuchecks qid with ssi, continue home insulin regimen 5. Hyperlipidemia - chronic, continue home medications DVT Prophylaxis: Ambulation Time Spent: Greater than 80 minutes spent with patient, 50% of the time spent with this patient was devoted to counseling and coordination of care. [facility] minutes spent discussing advance care planning. Disposition: Admit to: Med/Surg Observation Discussed Plan of Care with Dr. Rupal Lopez. Medications Medication Orders: Medications Ordered Category Date Time Status Acetaminophen [Tylenol] Meds 08/22/23 13:56 Active 650 mg PO Q4H PRN Ertapenem Sodium [Invanz] 1 gm Meds 08/22/23 21:00 Active 0.9 % Sodium Chloride [Sodium Chloride] 50 ml IV BEDTIME Ondansetron HCl/Pf [Zofran 4 mg/2 ml] Meds 08/22/23 13:56 Active 4 mg IVP Q6H PRN Sodium Chloride 0.9% [Sodium Chloride] 1,000 ml Meds 08/22/23 11:42 Active IV 100 mls/hr
[2023-08-22 15:46] VITALS: BMI 21.5
[2023-08-22] MEDS: XALATAN EACHEYE SCH (17:21)
[2023-08-22] MEDS: COSOPT EACHEYE SCH (20:41)
[2023-08-22] MEDS: ULTRAM PO SCH (20:41)
[2023-08-22] MEDS: INVANZ 1 GM in SODIUM CHLORIDE 50 ML IV SCH (20:41)
[2023-08-22] MEDS: PRAVACHOL PO SCH (20:41)
[2023-08-22] MEDS: REMERON PO SCH (20:41)
[2023-08-22] MEDS: HUMULIN R SUBCUT PRN (20:42)
[2023-08-22] MEDS ORDERED: MOBIC PO PRN (21:00)
[2023-08-22] MEDS: NEURONTIN PO PRN (21:16)
[2023-08-23] MEDS: NORCO 7.5-325 PO PRN (05:03)
[2023-08-23 05:06] LABS: BASOPHILS % (AUTO) 0.4 % (0.0-3.0); EOSINOPHILS # (AUTO) 0.5 K/ul (0.0-0.7); EOSINOPHILS % (AUTO) 6.2 % (0.0-7.0); HEMATOCRIT 33.6 % (42.0-52.0); HEMOGLOBIN 10.7 g/dl (14.0-18.0); IMMATURE GRANULOCYTE % (AUTO) 0.2 % (0.0-5.0); LYMPHOCYTES # (AUTO) 1.5 K/uL (0.60-3.4); LYMPHOCYTES % (AUTO) 17.9 (10.0-50.0); MEAN CORPUSCULAR HEMOGLOBIN 30.1 pg (27.0-31.0); MEAN CORPUSCULAR HGB CONC 31.8 (31.8-35.4); MEAN CORPUSCULAR VOLUME 94.4 fl (80.0-94.0); MONOCYTES # (AUTO) 0.6 K/uL (0.4-2.0); MONOCYTES % (AUTO) 6.9 (0-10); NEUTROPHILS # (AUTO) 5.8 K/ul (2.0-6.9); NEUTROPHILS % (AUTO) 68.4 % (42.2-75.2); PLATELET COUNT 187 10^3/uL (140-440); RDW COEFFICIENT OF VARIATION 13.6 % (11.6-14.8); RED BLOOD COUNT 3.56 10^6/ul (4.70-6.10)
[2023-08-23 05:19] LABS: ALBUMIN 2.91 g/dL (3.5-5.0); ALKALINE PHOSPHATASE 46.7 U/L (56-119); ASPARTATE AMINO TRANSFERASE 38.6 U/L (17-59); BILIRUBIN,TOTAL 0.73 mg/dL (0.2-1.3); BLOOD UREA NITROGEN 14.4 mg/dL (9-20); CALCIUM 8.72 mg/dL (8.4-10.2); CARBON DIOXIDE 27.3 mmol/L (22-30.0); CREATININE 0.53 mg/dL (0.60-1.10); GLUCOSE 83.2 mg/dL (74-106); POTASSIUM 3.61 mmol/L (3.5-5.1); SODIUM 137.2 mmol/L (134.5-145); TOTAL PROTEIN 6.08 g/dL (6.3-8.2)
[2023-08-23] MEDS: TUMS CHEWABLE PO SCH (08:17)
[2023-08-23] MEDS: VITAMIN D PO SCH (08:18)
[2023-08-23] MEDS: DITROPAN PO SCH (08:19)
[2023-08-23] MEDS ORDERED: LEVAQUIN 500 MG/100 ML D5W 500 MG/100 ML BAG IV SCH (09:00)
[2023-08-23] MEDS ORDERED: BENTYL PO PRN (09:00)
[2023-08-23] MEDS ORDERED: NON-FORMULARY MEDICATION (Insulin Degludec [Tresiba Flextouch U-200] 200 unit/mL (3 mL) in SUBCUT SCH (09:00)
[2023-08-23] MEDS: LANTUS SUBCUT SCH (09:00)
[2023-08-23] MEDS ORDERED: FLONASE NAS PRN (09:00)
--- NOTE | 2023-08-23 09:01 | PCM.PROG ---
Date/Time Seen Date Seen by Provider: 08/23/23 Time Seen by Provider: 08:30 Provider Provider: MAE WEAVER, [facility] Chief Complaint Chief Complaint: UTI Subjective Subjective: States he is feeling better today. Doesn't feel as weak and fatigued. Anxious to return home. Objective Appearance: Positive No Apparent Distress and Alert and Oriented x3 Chest/Lungs: Positive Symmetrical With Equal Breath Sounds, Clear to Auscultation Bilaterally and Good Air Movement all 4 Lung [place] Heart: Positive RRR and Pulses Normal GI/: Positive Soft, Nontender, Bowel Sounds Normal and No Distention Musculoskeletal: Positive Not Examined Neurological: Positive Sensation Intact, Motor intact, Alert and Oriented Vital Signs Vital Signs: Vital Signs: Last 24 Hours 08/22/23 11:15 08/22/23 14:40 08/22/23 14:40 Temperature 98.3 F 97.7 F Temperature Source Infrared Temporal Artery Scan Pulse Rate 90 75 Respiratory Rate 16 18 Blood Pressure 153/80 H Blood Pressure Mean Blood Pressure Right Arm 124/87 Blood Pressure Location Blood Pressure Position Supine O2 Sat by Pulse Oximetry 95 95 Oxygen Delivery Method Room Air Room Air Height 6 ft 4 in 6 ft 4 in Weight 261 lb 177 lb 1.6 oz Telemetry Type Telemetry Monitoring Telemetry Heart Rate EKG ME Interval EKG QRS Interval Telemetry Strip Reading 08/22/23 15:00 08/22/23 15:00 08/22/23 16:00 Temperature Temperature Source Pulse Rate Respiratory Rate Blood Pressure Blood Pressure Mean Blood Pressure Right Arm Blood Pressure Location Blood Pressure Position O2 Sat by Pulse Oximetry Oxygen Delivery Method Room Air Room Air Room Air Height Weight Telemetry Type Telemetry Monitoring Telemetry Heart Rate EKG ME Interval EKG QRS Interval Telemetry Strip Reading 08/22/23 16:41 08/22/23 17:25 08/22/23 17:38 Temperature Temperature Source Pulse Rate Respiratory Rate Blood Pressure Blood Pressure Mean Blood Pressure Right Arm Blood Pressure Location Blood Pressure Position O2 Sat by Pulse Oximetry Oxygen Delivery Method Room Air Room Air Height Weight Telemetry Type Remote Telemetry Telemetry Monitoring Started Telemetry Heart Rate 62 EKG ME Interval 0.17 EKG QRS Interval 0.08 Telemetry Strip Reading SR 08/22/23 17:53 08/22/23 19:00 08/22/23 19:00 Temperature 97.7 F Temperature Source Temporal Artery Scan Pulse Rate 80 Respiratory Rate 18 Blood Pressure 106/71 Blood Pressure Mean 82 Blood Pressure Right Arm Blood Pressure Location Right Arm Blood Pressure Position O2 Sat by Pulse Oximetry 95 Oxygen Delivery Method Room Air Room Air Height Weight Telemetry Type Remote Telemetry Telemetry Monitoring Continues Telemetry Heart Rate 72 EKG ME Interval 0.21 H EKG QRS Interval 0.07 Telemetry Strip Reading SR WITH 1ST DEGREE AVB 08/22/23 20:00 08/22/23 20:00 08/22/23 20:31 Temperature 97.2 F L Temperature Source Temporal Artery Scan Pulse Rate 77 Respiratory Rate 16 19 Blood Pressure 132/70 Blood Pressure Mean 90 Blood Pressure Right Arm Blood Pressure Location Right Arm Blood Pressure Position Supine O2 Sat by Pulse Oximetry 97 Oxygen Delivery Method Room Air Room Air Room Air Height Weight Telemetry Type Telemetry Monitoring Telemetry Heart Rate EKG ME Interval EKG QRS Interval Telemetry Strip Reading 08/22/23 21:00 08/22/23 22:00 08/22/23 23:00 Temperature Temperature Source Pulse Rate Respiratory Rate Blood Pressure Blood Pressure Mean Blood Pressure Right Arm Blood Pressure Location Blood Pressure Position O2 Sat by Pulse Oximetry Oxygen Delivery Method Room Air Room Air Room Air Height Weight Telemetry Type Telemetry Monitoring Telemetry Heart Rate EKG ME Interval EKG QRS Interval Telemetry Strip Reading 08/23/23 00:00 08/23/23 01:00 08/23/23 01:00 Temperature Temperature Source Pulse Rate Respiratory Rate Blood Pressure Blood Pressure Mean Blood Pressure Right Arm Blood Pressure Location Blood Pressure Position O2 Sat by Pulse Oximetry Oxygen Delivery Method Room Air Room Air Height Weight Telemetry Type Remote Telemetry Telemetry Monitoring Continues Telemetry Heart Rate 66 EKG ME Interval 0.21 H EKG QRS Interval 0.06 Telemetry Strip Reading SR WITH 1ST DEGREE AVB 08/23/23 02:00 08/23/23 02:00 08/23/23 03:00 Temperature 97.4 F L Temperature Source Temporal Artery Scan Pulse Rate 72 Respiratory Rate 18 Blood Pressure 129/74 Blood Pressure Mean 92 Blood Pressure Right Arm Blood Pressure Location Right Arm Blood Pressure Position Supine O2 Sat by Pulse Oximetry 96 Oxygen Delivery Method Room Air Room Air Room Air Height Weight Telemetry Type Telemetry Monitoring Telemetry Heart Rate EKG ME Interval EKG QRS Interval Telemetry Strip Reading 08/23/23 03:59 08/23/23 05:00 08/23/23 05:28 Temperature 97.4 F L Temperature Source Temporal Artery Scan Pulse Rate 78 Respiratory Rate 18 Blood Pressure 162/76 H Blood Pressure Mean 104 Blood Pressure Right Arm Blood Pressure Location Right Arm Blood Pressure Position Supine O2 Sat by Pulse Oximetry 96 Oxygen Delivery Method Room Air Room Air Room Air Height Weight Telemetry Type Telemetry Monitoring Telemetry Heart Rate EKG ME Interval EKG QRS Interval Telemetry Strip Reading 08/23/23 05:35 08/23/23 05:57 08/23/23 06:59 Temperature Temperature Source Pulse Rate 63 Respiratory Rate 16 Blood Pressure 135/84 Blood Pressure Mean 101 Blood Pressure Right Arm Blood Pressure Location Left Arm Blood Pressure Position Supine O2 Sat by Pulse Oximetry Oxygen Delivery Method Room Air Room Air Room Air Height Weight Telemetry Type Telemetry Monitoring Telemetry Heart Rate EKG ME Interval EKG QRS Interval Telemetry Strip Reading 08/23/23 07:00 08/23/23 08:00 08/23/23 08:00 Temperature Temperature Source Pulse Rate Respiratory Rate Blood Pressure Blood Pressure Mean Blood Pressure Right Arm Blood Pressure Location Blood Pressure Position O2 Sat by Pulse Oximetry Oxygen Delivery Method Room Air Room Air Height Weight Telemetry Type Remote Telemetry Telemetry Monitoring Continues Telemetry Heart Rate 57 L EKG ME Interval 0.17 EKG QRS Interval 0.03 L Telemetry Strip Reading SB 08/23/23 08:58 Temperature Temperature Source Pulse Rate Respiratory Rate Blood Pressure Blood Pressure Mean Blood Pressure Right Arm Blood Pressure Location Blood Pressure Position O2 Sat by Pulse Oximetry Oxygen Delivery Method Room Air Height Weight Telemetry Type Telemetry Monitoring Telemetry Heart Rate EKG ME Interval EKG QRS Interval Telemetry Strip Reading Lab Results Lab Results: Lab Results: Last 24 Hours 08/23/23 08/22/23 08/22/23 04:56 13:58 12:21 WBC 8.40 D RBC 3.56 L Hgb 10.7 L Hct 33.6 L MCV 94.4 H MCH 30.1 MCHC 31.8 RDW Coeff of Pat 13.6 Plt Count 187 Immature Gran % (Auto) 0.2 Neut % (Auto) 68.4 Lymph % (Auto) 17.9 Early % (Auto) 6.9 Eos % (Auto) 6.2 Baso % (Auto) 0.4 Neut # (Auto) 5.8 Lymph # (Auto) 1.5 Early # (Auto) 0.6 Eos # (Auto) 0.5 Baso # (Auto) 0.0 Immature Gran # (Auto) 0.0 Sodium 137.2 Potassium 3.61 Chloride 106.0 Carbon Dioxide 27.3 Anion Gap 7.51 BUN 14.4 Creatinine 0.53 L Estimated GFR (MDRD) 147.00 BUN/Creatinine Ratio 27.16 Glucose 83.2 D Lactic Acid 1.09 Calcium 8.72 Total Bilirubin 0.73 AST 38.6 ALT 24.0 Alkaline Phosphatase 46.7 L Troponin I Total Protein 6.08 L Albumin 2.91 L Globulin 3.17 Albumin/Globulin Ratio 0.91 Urine Color Urine Clarity Urine pH Ur Specific [place] Urine Protein Urine Glucose (UA) Urine Ketones Urine Blood Urine Nitrite Urine Bilirubin Urine Urobilinogen Ur Leukocyte Esterase Urine Microscopic RBC Urine Microscopic WBC Ur Squamous Epith Cells Ur Renal Epithelial Cell Calcium Oxalate Crystal Urine Bacteria Urine Mucus SARS CoV-2 RNA Rapid KARINA Negative 08/22/23 08/22/23 11:58 11:27 WBC 20.02 H RBC 4.06 L Hgb 12.2 L Hct 38.4 L MCV 94.6 H MCH 30.0 MCHC 31.8 RDW Coeff of Pat 13.6 Plt Count 238 Immature Gran % (Auto) 0.3 Neut % (Auto) 86.9 H Lymph % (Auto) 7.4 L Early % (Auto) 4.7 Eos % (Auto) 0.6 Baso % (Auto) 0.1 Neut # (Auto) 17.4 H Lymph # (Auto) 1.5 Early # (Auto) 1.0 Eos # (Auto) 0.1 Baso # (Auto) 0.0 Immature Gran # (Auto) 0.1 Sodium 133.3 L Potassium 3.65 Chloride 100.3 Carbon Dioxide 25.5 Anion Gap 11.15 BUN 16.0 Creatinine 0.49 L Estimated GFR (MDRD) 161.00 BUN/Creatinine Ratio 32.65 Glucose 251.5 H Lactic Acid Calcium 9.02 Total Bilirubin 1.14 AST 49.4 ALT 25.5 Alkaline Phosphatase 57.4 Troponin I < 0.012 Total Protein 7.04 Albumin 3.43 L Globulin 3.61 Albumin/Globulin Ratio 0.95 Urine Color Dark Urine Clarity Turbid Urine pH 7.0 Ur Specific [place] 1.020 Urine Protein 2+ H Urine Glucose (UA) Negative Urine Ketones Negative Urine Blood 3+ H Urine Nitrite Positive H Urine Bilirubin Negative Urine Urobilinogen 2.0 H Ur Leukocyte Esterase 1+ H Urine Microscopic RBC Tntc Urine Microscopic WBC 50-100 Ur Squamous Epith Cells Not present Ur Renal Epithelial Cell 10-20 Calcium Oxalate Crystal 3+ Urine Bacteria 3+ Urine Mucus Trace SARS CoV-2 RNA Rapid KARINA Additional Comments Additional Comments: I have independently reviewed and interpreted the labs/EKGs/imaging ordered during this hospital stay. I have reviewed outside records that are available in our EMR that pertain to medical stay including imaging/notes/labs from previous visits. Active Medications Active Medications: Medications Generic Name Dose Route Start Last Admin Trade Name Freq PRN Reason Stop Dose Admin Acetaminophen 650 mg 08/22/23 13:56 Acetaminophen 325 Mg Tablet PO Q4H PRN Mild Pain Hydrocodone Bitart/Acetaminophen 1 tab 08/22/23 15:45 08/23/23 05:03 Hydrocodone Bit/Acetaminophen 7.5/325 Mg Tablet PO 1 tab BID PRN Administration Pain Calcium Carbonate/Glycine 1,000 mg 08/23/23 09:00 08/23/23 08:17 Calcium Carbonate 500 Mg Tab.Chew PO 1,000 mg DAILY MAHNAZ Administration Cholecalciferol 2,000 unit 08/23/23 09:00 08/23/23 08:18 Cholecalciferol (Vitamin D3) 1,000 Unit (25 Mcg) Tablet PO 2,000 unit DAILY MAHNAZ Administration Dicyclomine HCl 10 mg 08/23/23 09:00 Dicyclomine Hcl 10 Mg Capsule PO DAILY PRN BLADDER SPASMS Dorzolamide/Timolol 1 drop 08/22/23 21:00 08/23/23 08:20 Dorzolamide Hcl/Timolol Maleat Opth 10 Ml Billie EACHEYE 1 drop BID MAHNAZ Administration Fluticasone Propionate 2 spray 08/23/23 09:00 Fluticasone Propionate 16 Gm Nasal Sullivan JOEY DAILY PRN CONGESTION Gabapentin 100 - 200 mg 08/22/23 21:00 08/22/23 21:16 Gabapentin 100 Mg Capsule PO 100 mg BEDTIME PRN Administration MUSCLE SPASMS Ertapenem 1 gm/ Sodium 50 mls @ 100 mls/hr 08/22/23 21:00 08/22/23 20:41 Chloride IV 08/25/23 20:59 100 mls/hr BEDTIME MAHNAZ Administration Insulin Glargine 15 unit 08/23/23 09:00 Insulin Glargine,Hum.Rec.Anlog 100 Units/Ml SUBCUT DAILY COUNTS INCLUDE 234 BEDS AT [facility] Insulin Human Regular 0 unit 08/22/23 20:00 08/22/23 20:42 Insulin Regular, Human 100 Unit/Ml (10ml) Vial SUBCUT 7 unit PRN PRN Administration Hyperglycemia Protocol Latanoprost 1 drop 08/22/23 17:00 08/22/23 17:21 Latanoprost 2.5 Ml Opth Billie EACHEYE 1 drop QPM MAHNAZ Administration Meloxicam 15 mg 08/22/23 21:00 Meloxicam 7.5 Mg Tablet PO BEDTIME PRN pain Mirtazapine 7.5 mg 08/22/23 21:00 08/22/23 20:41 Mirtazapine 15 Mg Tablet PO 7.5 mg BEDTIME MAHNAZ Administration Ondansetron HCl 4 mg 08/22/23 13:56 Ondansetron Hcl/Pf 4 Mg/2 Ml Sdv IVP Q6H PRN Nausea / Vomiting Oxybutynin Chloride 5 mg 08/23/23 09:00 08/23/23 08:19 Oxybutynin Chloride 5 Mg Tablet PO 5 mg DAILY MAHNAZ Administration Pravastatin Sodium 20 mg 08/22/23 21:00 08/22/23 20:41 Pravastatin Sodium 20 Mg Tablet PO 20 mg BEDTIME MAHNAZ Administration Tramadol HCl 50 mg 08/22/23 21:00 08/23/23 08:19 Tramadol Hcl 50 Mg Tablet PO 50 mg TID MAHNAZ Administration Plan Plan: 1. Acute on Chronic UTI - ESBL+ E.coli on 08/14, new urine culture growth of gram negative rods, awaiting sensitivity ertapenem 1G daily, conklin catheter changed on 08/09 per home health 2. Leukocytosis - Resolved, monitor 3. Hyponatremia - Resolved, monitor 4. DM2 - accuchecks qid with ssi, continue home insulin regimen 5. Hyperlipidemia - chronic, continue home medications DVT Prophylaxis: Ambulation Review Statement Review Statement: I have personally discussed and reviewed the patient's visit/currently labs/imaging/decision making with Dr. Lopez, my supervising attending. Greater that 50 minutes spent with patient, 50% of the time spent with this patient was devoted to counseling and coordination of care.
[2023-08-24] MEDS: TYLENOL PO PRN (00:51)
[2023-08-24 04:59] LABS: BASOPHILS % (AUTO) 0.2 % (0.0-3.0); EOSINOPHILS # (AUTO) 0.3 K/ul (0.0-0.7); EOSINOPHILS % (AUTO) 3.8 % (0.0-7.0); HEMATOCRIT 35.7 % (42.0-52.0); HEMOGLOBIN 11.6 g/dl (14.0-18.0); IMMATURE GRANULOCYTE % (AUTO) 0.2 % (0.0-5.0); LYMPHOCYTES # (AUTO) 1.4 K/uL (0.60-3.4); LYMPHOCYTES % (AUTO) 16.1 (10.0-50.0); MEAN CORPUSCULAR HEMOGLOBIN 29.8 pg (27.0-31.0); MEAN CORPUSCULAR HGB CONC 32.5 (31.8-35.4); MEAN CORPUSCULAR VOLUME 91.8 fl (80.0-94.0); MONOCYTES # (AUTO) 0.7 K/uL (0.4-2.0); MONOCYTES % (AUTO) 7.8 (0-10); NEUTROPHILS # (AUTO) 6.2 K/ul (2.0-6.9); NEUTROPHILS % (AUTO) 71.9 % (42.2-75.2); PLATELET COUNT 194 10^3/uL (140-440); RDW COEFFICIENT OF VARIATION 13.1 % (11.6-14.8); RED BLOOD COUNT 3.89 10^6/ul (4.70-6.10); WHITE BLOOD COUNT 8.64 K/ul (4.2-10.2)
[2023-08-24 05:13] LABS: ALANINE AMINOTRANSFERASE 25.6 U/L (0-50); ALBUMIN 3.22 g/dL (3.5-5.0); ALKALINE PHOSPHATASE 52.7 U/L (56-119); ASPARTATE AMINO TRANSFERASE 42.7 U/L (17-59); BILIRUBIN,TOTAL 0.96 mg/dL (0.2-1.3); BLOOD UREA NITROGEN 13.7 mg/dL (9-20); CALCIUM 8.83 mg/dL (8.4-10.2); CARBON DIOXIDE 25.3 mmol/L (22-30.0); CHLORIDE 99.1 mmol/L (98-107); CREATININE 0.46 mg/dL (0.60-1.10); GLUCOSE 118.7 mg/dL (74-106); POTASSIUM 3.53 mmol/L (3.5-5.1); SODIUM 130.9 mmol/L (134.5-145); TOTAL PROTEIN 6.64 g/dL (6.3-8.2)
[2023-08-24] MEDS ORDERED: LIDOCAINE 1% 5 ML SDV IM ONE (09:10)
--- NOTE | 2023-08-24 09:11 | DCSUM ---
Admission Date Admission Date: 08/22/23 Discharge Date Discharge Date: 08/24/23 Admission Diagnosis Admission Diagnosis: 1. Acute on Chronic UTI 2. Leukocytosis 3. Hyponatremia 4. DM2 5. Hyperlipidemia Discharge Diagnosis Discharge Diagnosis: 1. Acute on Chronic UTI - Improving 2. Leukocytosis - Resolved 3. Hyponatremia - Chronic, at baseline levels 4. DM2 - Chronic, stable 5. Hyperlipidemia - Chronic, stable Hospital Provider Hospital Provider: MAE WEAVER, [facility] [place] Primary Care Physician Primary Care Physician: VIPUL AJ MD Summary of History and Physical Summary of History and Physical: 87 yo male presented to the ER today with daughter for altered mental status. Daughter reports that she has noticed episodes of confusion intermittently over the past week. He was diagnosed with a UTI and started on macrobid 500 mg BID. Urine culture revealed ESBL+ E.coli, resistant to macrobid. WBC count found to be in 20s and urine continuing to show UTI. Patient oriented x 3 at this time. Denies any fever, chills, abd pain, N/V/D. Admitted to med/surg observation Hospital Course Subjective: Treated ESBL + E. Coli in urine with ertapenem 1G daily. Patient has remained hemodynamically stable throughout course. No fever. Confusion intermittent and patient appears at baseline mental status. Leukocytosis resolved with treatment with antibiotics. Sodium in 130s and based on previous labs this is chronic. No changes made to home medications. Patient continues to require home health services including PT/OT and nursing care for management of conklin catheter, IM injections for antibiotics, and strengthening for weakness in order to be able to care for self in the home. Appearance: Pleasant, No Apparent Distress and Alert HEENT: MMM and Supple CVS: No Murmur and No Rubs Abdomen: Soft and Non-Tender Respiratory: No Dyspnea Extremities: No Edema Vital Signs: Most Recent Vital Signs Temperature 97.5 F L 08/24/23 05:16 Temperature Source Temporal Artery Scan 08/24/23 05:16 Temperature Source Infrared 08/22/23 11:15 Pulse Rate 76 08/24/23 07:50 Respiratory Rate 20 08/24/23 07:50 Blood Pressure 155/87 H 08/24/23 05:16 Blood Pressure Mean 109 08/24/23 05:16 Blood Pressure Right Arm 124/87 08/22/23 14:40 Blood Pressure Location Left Arm 08/24/23 05:16 Blood Pressure Position Supine 08/24/23 05:16 O2 Sat by Pulse Oximetry 95 08/24/23 05:16 Oxygen Delivery Method Room Air 08/24/23 08:00 Height 6 ft 4 in 08/23/23 12:27 Weight 177 lb 1.6 oz 08/23/23 12:27 Telemetry Type Remote Telemetry 08/24/23 07:00 Telemetry Monitoring Continues 08/24/23 07:00 Telemetry Heart Rate 69 08/24/23 07:00 Telemetry SPO2 94 07/11/23 19:00 EKG WI Interval 0.18 08/24/23 07:00 EKG QRS Interval 0.06 08/24/23 07:00 Telemetry Strip Reading NSR 08/24/23 07:00 Lab Results Last 24 Hours: 08/24/23 04:55 WBC 8.64 RBC 3.89 L Hgb 11.6 L Hct 35.7 L MCV 91.8 MCH 29.8 MCHC 32.5 RDW Coeff of Pat 13.1 Plt Count 194 Immature Gran % (Auto) 0.2 Neut % (Auto) 71.9 Lymph % (Auto) 16.1 Grant % (Auto) 7.8 Eos % (Auto) 3.8 Baso % (Auto) 0.2 Neut # (Auto) 6.2 Lymph # (Auto) 1.4 Grant # (Auto) 0.7 Eos # (Auto) 0.3 Baso # (Auto) 0.0 Immature Gran # (Auto) 0.0 Sodium 130.9 L Potassium 3.53 Chloride 99.1 Carbon Dioxide 25.3 Anion Gap 10.03 BUN 13.7 Creatinine 0.46 L Estimated GFR (MDRD) 173.00 BUN/Creatinine Ratio 29.78 Glucose 118.7 H Calcium 8.83 Total Bilirubin 0.96 AST 42.7 ALT 25.6 Alkaline Phosphatase 52.7 L Total Protein 6.64 Albumin 3.22 L Globulin 3.42 Albumin/Globulin Ratio 0.94 Discharge Instructions Discharge Planning: Discharge Planning > 40 minutes If patient is discharged with left ventricular systolic dysfunction: NA Discharged with a beta jemma? [] If no, why not? [] Discharged with an mulugeta/arb? [] If no, why not? [] DX: URINARY TRACT INFECTION DIET: DIABETIC ACTIVITY: [facility] PT/OT/NURSING FOLLOW-UP WITH PCP NEXT WEEK MEDICATIONS: Start intramuscular injections tomorrow: Ertapenem (Invanz) 1G daily x 4 days Discharge Medications: Medications at Discharge (Home Meds & RX) pravastatin 20 mg tablet 20 mg PO BEDTIME 12/28/21 calcium carbonate (Calcium 500) 1,000 mg (2 x 500 mg calcium (1,250 mg)) PO QDAY #60 tabs 08/03/22 cholecalciferol (vitamin D3) 50 mcg (2,000 unit) capsule 50 mcg PO QDAY #30 caps 08/03/22 oxybutynin chloride 5 mg tablet 5 mg PO QDAY 08/12/22 dorzolamide 22.3 mg-timolol 6.8 mg/mL eye drops 1 drp BOTHEYES BID #10 mL insulin degludec 200 unit/mL (3 mL) subcutaneous pen (Tresiba FlexTouch U-200 insulin) 15 unit (0.075 mL) subcut QDAY #9 mL 12/28/22 latanoprost 0.005 % eye drops 1 drp BOTHEYES QPM #2.5 mL 12/28/22 pen needle, diabetic 32 gauge x 1/4" (Novofine 32) #100 ea 12/28/22 tramadol 50 mg tablet 50 mg PO TID pain #90 tabs 12/28/22 meloxicam 15 mg tablet 15 mg PO QDAY PRN pain 04/28/23 dicyclomine 10 mg capsule 10 mg PO ONCE PRN bladder spasms #30 caps 05/04/23 gabapentin 100 mg capsule 100 - 200 mg (1 - 2 x 100 mg) PO QPM PRN muscle spasm #60 caps 05/04/23 fluticasone propionate 50 mcg/actuation nasal spray,suspension See Rx Instructions .Route .COMPLEX #16 grams 07/07/23 hydrocodone 7.5 mg-acetaminophen 325 mg tablet 1 tab PO BID PRN pain 07/08/23 calcitonin (salmon) 200 unit/actuation nasal spray See Rx Instructions .Route .COMPLEX #3.7 mL 07/11/23 mirtazapine 7.5 mg tablet See Rx Instructions .Route .COMPLEX #30 tabs 07/27/23 nitrofurantoin macrocrystal 50 mg capsule (Macrodantin) 50 mg PO BID 10 days #20 caps 08/17/23 Discharge Plan Discharge Discharge Orders: Discharge Patient (ONCE); Ordered 08/24/23 Ordered By: SARAH SIERRA Activity Restrictions/Additional Instructions: DX: URINARY TRACT INFECTION DIET: DIABETIC ACTIVITY: [facility] PT/OT/NURSING FOLLOW-UP WITH PCP NEXT WEEK MEDICATIONS: Start intramuscular injections tomorrow: Ertapenem (Invanz) 1G daily x 4 days Instructions: Urinary Tract Infection in Men (GEN), Conklin Catheter Placement and Care (GEN) Patient Disposition: HOME WITH FAMILY CARE Prescriptions: New ertapenem 1 gram recon soln 1 g IM DAILY 4 Days Qty: 4 0RF lidocaine (PF) 10 mg/mL (1 %) solution 3.2 ml IM DAILY 4 Days Qty: 13 0RF Continued calcium carbonate [Calcium 500] 500 mg calcium (1,250 mg) tablet,chewable 1,000 mg PO QDAY Qty: 60 5RF cholecalciferol (vitamin D3) 50 mcg (2,000 unit) capsule 50 mcg PO QDAY Qty: 30 5RF dorzolamide-timolol 22.3-6.8 mg/mL drops 1 drp BOTHEYES BID Qty: 10 3RF latanoprost 0.005 % drops 1 drp BOTHEYES QPM Qty: 2.5 3RF (DME) pen needle, diabetic [Novofine 32] 32 gauge x 1/4" needle See Rx Instructions .ROUTE Qty: 100 3RF Rx Instructions: As directed tramadol 50 mg tablet 50 mg PO TID Qty: 90 1RF Rx Instructions: give at least 6 hours apart insulin degludec [Tresiba FlexTouch U-200] 200 unit/mL (3 mL) insulin pen 15 unit subcut QDAY Qty: 9 3RF fluticasone propionate 50 mcg/actuation spray,suspension See Rx Instructions .ROUTE .COMPLEX Qty: 16 3RF Dose Instruction: ADMINISTER 2 SPRAYS INTO EACH NOSTRIL DAILY NEEDED FOR CONGESTION Rx Instructions: ADMINISTER 2 SPRAYS INTO EACH NOSTRIL DAILY NEEDED FOR CONGESTION calcitonin (salmon) 200 unit/actuation spray,non-aerosol See Rx Instructions .ROUTE .COMPLEX Qty: 3.7 3RF Dose Instruction: ADMINISTER ONE (1) SPRAY INTO ONE NOSTRIL (ALTERNATE) DAILY Rx Instructions: ADMINISTER ONE (1) SPRAY INTO ONE NOSTRIL (ALTERNATE) DAILY mirtazapine 7.5 mg tablet See Rx Instructions .ROUTE .COMPLEX Qty: 30 3RF Dose Instruction: TAKE ONE (1) TABLET BY MOUTH NIGHTLY AT BEDTIME Rx Instructions: TAKE ONE (1) TABLET BY MOUTH NIGHTLY AT BEDTIME nitrofurantoin macrocrystal [Macrodantin] 50 mg capsule 50 mg PO BID 10 Days Qty: 20 0RF Rx Instructions: must administer with a meal/food pravastatin 20 mg Tablet 20 mg PO BEDTIME hydrocodone-acetaminophen 7.5-325 mg tablet 1 tab PO BID PRN (Reason: pain) oxybutynin chloride 5 mg tablet 5 mg PO QDAY meloxicam 15 mg tablet 15 mg PO QDAY PRN (Reason: pain) Rx Instructions: Take 1 tablet at bedtime as needed dicyclomine 10 mg capsule 10 mg PO ONCE PRN (Reason: bladder spasms) Qty: 30 3RF Rx Instructions: Take 1 Tablet by Mouth Daily for Bladder Spasms gabapentin 100 mg capsule 100 - 200 mg PO QPM PRN (Reason: muscle spasm) Qty: 60 3RF Did you review [place] STRIP CATCHER for ALL controlled substances?: No Discussed opioids are addictive and Narcan is available by prescription or from pharmacy.: No Condition: Stable
[2023-08-24] MEDS: INVANZ 1 GM in SODIUM CHLORIDE 50 ML IV ONE (09:31)
[2023-08-24 10:03] VITALS: BP 133/66; PULSE 62; RESP 17; TEMP 98.7
== END 2023-08-24 12:40 | disposition home or self-care (01) ==
LOC: ED 11:04 → MEDSURG B 11:04
PROVIDERS: ADMIT Hospitalist; ATTEND Nurse Practitioner Family